=== PATIENT | female | born 1935 | race Caucasian/White ===

== ENCOUNTER → 2018-12-21 | Outpatient (CLI) | payer MEDICARE ==
--- NOTE | 2018-12-21 10:59 | Diagnostic Imaging Report ---
INDICATION: One-month history of right forearm pain. There is no fracture, dislocation or acute articular incongruity. No bony destructive process and no loose body. Degenerative changes to the wrist and elbow but no dislocation. IMPRESSION: No acute appearing abnormality. Dictated by: Dictated on workstation # [id number]
== END ==
LOC: RAD FS 10:45
PROVIDERS: ATTEND Nurse Practitioner Family
DX: M79.631 Pain in right forearm (principal)
CPT/HCPCS: 73090

== ENCOUNTER → 2019-05-11 | Outpatient (CLI) | payer MEDICARE ==
--- NOTE | 2019-05-11 16:24 | Diagnostic Imaging Report ---
INDICATION: Chronic mid back pain, no known injury. TECHNIQUE: AP and lateral imaging of the thoracic spine. CORRELATION STUDY: None. FINDINGS: There is no suggestion for acute pulmonary abnormality about the thoracic spine. There is slight accentuation of thoracic kyphosis. Diffuse disc space narrowing. Endplate lipping of the endplates, particularly in the lower thoracic vertebral body segments. Minimal leftward curvature at the thoracolumbar junction. Cholecystectomy clips in the right upper quadrant. Cardiac enlargement is suggested. IMPRESSION: Thoracic spondylosis without evidence for acute bony abdomen. Dictated by: Dictated on workstation # [id number]
== END ==
LOC: RAD FS 15:48
PROVIDERS: ATTEND Nurse Practitioner Family
DX: M47.814 Spondylosis without myelopathy or radiculopathy, thoracic region (principal); Z90.49 Acquired absence of other specified parts of digestive tract
CPT/HCPCS: 72070

== ENCOUNTER 2019-06-30 13:29 | Emergency (ER) | payer MEDICARE ==
[~2019-06-30] VITALS: Ht 160 cm; Wt 73.5 kg
--- NOTE | 2019-06-30 13:49 | ED General ---
General Stated Complaint: DIZZINESS; NAUSEA; KIET FEET/FACIAL TINGLING Source of Information: Patient Exam Limitations: No Limitations History of Present Illness Date Seen by Provider: Jun 30, 2019 Time Seen by Provider: 13:45 Initial Comments 83-year-old female presents with dizziness. She reports that it's been gone for about 5 days. It gets worse when she moves her head. She reports that she's had similar episodes in the past but this was worse. She's had a little bit of nausea vomiting with it. She has had some occasional diarrhea. She reports little bit of chest pressure when she got here but believes it might be She's anxious. She has no diaphoresis. Patient reports that in the past when she's had these episodes some time she's been a little bit dehydrated. She denies any fevers, chills. Patient also reported some bilateral feet and facial tingling to the nurse but not to me. Allergies and Home Medications Allergies Coded Allergies: morphine (Verified Allergy, Mild, 06/30/19) Patient Home Medication List Home Medication List Reviewed: Yes Review of Systems Review of Systems Constitutional: No chills; dizziness; No fever EENTM: No hearing loss Respiratory: no symptoms reported Cardiovascular: see HPI Gastrointestinal: No abdominal pain; diarrhea, nausea Genitourinary: no symptoms reported Skin: no symptoms reported Psychiatric/Neurological: See HPI Past Dwawihp-Tpfwxh-Qfyrwp Hx Past Med/Social Hx: Reviewed Nursing Past Med/Soc Hx Physical Exam Vital Signs Vital Signs - First Documented 06/30/19 14:08 Temp 36.8 Pulse 79 Resp 18 B/P (MAP) 225/87 (133) Pulse Ox 96 O2 Delivery Room Air Capillary Refill : Height, Weight, BMI Height: '" Weight: lbs. oz. 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 Norm as Tested Skin: Normal Color, Warm/Dry Lymphatic: No Adenopathy Progress/Results/Core Measures Suspected Sepsis SIRS Temperature: Pulse: Respiratory Rate: Laboratory Tests 06/30/19 13:55: White Blood Count 8.4 Blood Pressure / Mean: Laboratory Tests 06/30/19 13:55: Creatinine 1.27, Platelet Count 298, Total Bilirubin 0.5 Results/Orders Lab Results Laboratory Tests Test 06/30/19 13:45 06/30/19 13:55 06/30/19 14:20 Range/Units Urine Color YELLOW Urine Clarity CLEAR Urine pH 6.0 5-9 Urine Specific [place] 1.020 1.016-1.022 Urine Protein NEGATIVE NEGATIVE Urine Glucose (UA) NEGATIVE NEGATIVE Urine Ketones NEGATIVE NEGATIVE Urine Nitrite NEGATIVE NEGATIVE Urine Bilirubin NEGATIVE NEGATIVE Urine Urobilinogen 0.2 NORMAL MG/DL Urine Leukocyte Esterase TRACE H NEGATIVE Urine RBC (Auto) NEGATIVE NEGATIVE Urine RBC NONE /HPF Urine WBC 0-2 /HPF Urine Squamous Epithelial Cells 0-2 /HPF Urine Crystals NONE /LPF Urine Bacteria NEGATIVE /HPF Urine Casts NONE /LPF Urine Mucus NONE /LPF Urine Culture Indicated NO White Blood Count 8.4 4.3-11.0 10^3/uL Red Blood Count 4.75 4.35-5.85 10^6/uL Hemoglobin 13.3 11.5-16.0 G/DL Hematocrit 40 35-52 % Mean Corpuscular Volume 85 80-99 FL Mean Corpuscular Hemoglobin 28 25-34 PG Mean Corpuscular Hemoglobin Concent 33 32-36 G/DL Red Cell Distribution Width 12.3 10.0-14.5 % Platelet Count 298 130-400 10^3/uL Mean Platelet Volume 9.4 7.4-10.4 FL Neutrophils (%) (Auto) 77 H 42-75 % Lymphocytes (%) (Auto) 16 12-44 % Monocytes (%) (Auto) 5 0-12 % Eosinophils (%) (Auto) 1 0-10 % Basophils (%) (Auto) 0 0-10 % Neutrophils # (Auto) 6.5 1.8-7.8 X 10^3 Lymphocytes # (Auto) 1.3 1.0-4.0 X 10^3 Monocytes # (Auto) 0.5 0.0-1.0 X 10^3 Eosinophils # (Auto) 0.1 0.0-0.3 10^3/uL Basophils # (Auto) 0.0 0.0-0.1 10^3/uL Sodium Level 138 135-145 MMOL/L Potassium Level 4.0 3.6-5.0 MMOL/L Chloride Level 99 98-107 MMOL/L Carbon Dioxide Level 27 21-32 MMOL/L Anion Gap 12 5-14 MMOL/L Blood Urea Nitrogen 21 H 7-18 MG/DL Creatinine 1.27 0.60-1.30 MG/DL Estimat Glomerular Filtration Rate 40 BUN/Creatinine Ratio 17 Glucose Level 101 70-105 MG/DL Calcium Level 10.1 8.5-10.1 MG/DL Corrected Calcium 8.5-10.1 MG/DL Total Bilirubin 0.5 0.1-1.0 MG/DL Aspartate Amino Transf (AST/SGOT) 15 5-34 U/L Alanine Aminotransferase (ALT/SGPT) 9 0-55 U/L Alkaline Phosphatase 62 40-136 U/L Total Protein 7.4 6.4-8.2 GM/DL Albumin 4.6 H 3.2-4.5 GM/DL Glucometer 100 70-110 MG/DL My Orders Orders - ORTIZ,MITALI L DO Accucheck Stat ONCE (06/30/19 13:49) Ed Iv/Invasive Line Start (06/30/19 13:49) Ekg Tracing (06/30/19 13:49) Cbc With Automated Diff (06/30/19 13:49) Comprehensive Metabolic Panel (06/30/19 13:49) Ua Culture If Indicated (06/30/19 13:49) Meclizine Tablet (Antivert Tablet) (06/30/19 14:00) Ed Iv/Invasive Line Start (06/30/19 13:51) Ns Iv 500 Ml (Sodium Chloride 0.9%) (06/30/19 13:51) Ct Head Wo-R/O Stroke (06/30/19 13:56) Enalaprilat Inj (Vasotec Inj) (06/30/19 14:30) Enalaprilat Injection (Vasotec Injection (06/30/19 14:44) Ondansetron Injection (Zofran Injectio (06/30/19 15:15) Lisinopril Tablet (Zestril Tablet) (06/30/19 15:30) Medications Given in ED Current Medications Medications Dose Ordered Sig/Negrito Route Start Time Stop Time Status Last Admin Dose Admin Enalaprilat 2.5 mg ONCE ONCE IV 06/30/19 14:30 06/30/19 14:34 DC 06/30/19 14:50 2.5 MG Meclizine HCl 25 mg ONCE ONCE PO 06/30/19 14:00 06/30/19 14:01 DC 06/30/19 14:20 25 MG Ondansetron HCl 4 mg ONCE ONCE IVP 06/30/19 15:15 06/30/19 15:16 DC 06/30/19 15:11 4 MG Sodium Chloride 500 ml @ 0 mls/hr Q0M ONCE IV 06/30/19 13:51 06/30/19 13:53 DC 06/30/19 14:20 0 MLS/HR Vital Signs/I&O 06/30/19 14:08 Temp 36.8 Pulse 79 Resp 18 B/P (MAP) 225/87 (133) Pulse Ox 96 O2 Delivery Room Air Capillary Refill : Progress Note : Time: 15:36 Progress Note Patient's symptoms resolved following treatment of her blood pressure. I will start her on lisinopril 10 mg daily in addition to her labetalol. We will give her her first dose here in the ER. Patient uses [facility] and their pharmacy so we are arranging for [facility] to get her a prescription for her lisinopril. Patient is stable and has significant improvement in her symptoms. She will be discharged home in stable condition and should take her blood pressure medication as prescribed and follow-up with her primary care provider next week for recheck of symptoms patient should return to the ER if symptoms worsen. ECG Initial ECG Impression Date: Jun 30, 2019 Initial ECG Impression Time: 13:54 Initial ECG Rhythm: Normal Sinus Initial ECG Intervals: Normal Comment LVH Departure Impression Primary Impression: Hypertensive urgency Additional Impressions: Hypertension, uncontrolled Vertigo Disposition: HOME, SELF-CARE Condition: Stable Departure-Patient Inst. Referrals: NATY CARMEN APRN (PCP) Primary Care Physician MATT BAIRES MD (Family) Primary Care Physician Patient Instructions: Vertigo (a Type of Dizziness) (DC), High Blood Pressure in Adults, Medicines for High Blood Pressure Add. Discharge Instructions: Follow-up with Naty Carmen next week for recheck of symptoms and continuation of care Take medication as prescribed MITALI ORTIZ DO Jun 30, 2019 13:49
[2019-06-30] MEDS ORDERED: NS IV 500 ML 500 ML IV ONE (13:51)
[2019-06-30] MEDS ORDERED: MECLIZINE 25 MG (ANTIVERT) TAB PO ONE (14:00)
[2019-06-30 14:03] LABS: HEMATOCRIT 40 % (35-52); HEMOGLOBIN 13.3 G/DL (11.5-16.0); LYMPHOCYTES % (AUTO) 16 % (12-44); MEAN CORPUSCULAR HEMOGLOBIN 28 PG (25-34); MEAN CORPUSCULAR HGB CONC 33 G/DL (32-36); MEAN CORPUSCULAR VOLUME 85 FL (80-99); MEAN PLATELET VOLUME 9.4 FL (7.4-10.4); MONOCYTES % (AUTO) 5 % (0-12); NEUTROPHILS % (AUTO) 77 % (42-75); PLATELET COUNT 298 10^3/uL (130-400); RED CELL DISTRIBUTION WIDTH 12.3 % (10.0-14.5); WHITE BLOOD COUNT 8.4 10^3/uL (4.3-11.0)
[2019-06-30 14:04] LABS: BASOPHILS % (AUTO) 0 % (0-10); EOSINOPHILS # (AUTO) 0.1 10^3/uL (0.0-0.3); EOSINOPHILS % (AUTO) 1 % (0-10); LYMPHOCYTES # (AUTO) 1.3 X 10^3 (1.0-4.0); MONOCYTES # (AUTO) 0.5 X 10^3 (0.0-1.0); NEUTROPHILS # (AUTO) 6.5 X 10^3 (1.8-7.8)
[2019-06-30 14:19] LABS: BACTERIA,URINE NEGATIVE /HPF; BILIRUBIN,URINE NEGATIVE (NEGATIVE); CLARITY,URINE CLEAR; COLOR,URINE YELLOW; GLUCOSE, URINE (UA) NEGATIVE (NEGATIVE); KETONES,URINE NEGATIVE (NEGATIVE); LEUKOCYTE ESTERASE ,URINE TRACE (NEGATIVE); NITRITE,URINE NEGATIVE (NEGATIVE); PROTEIN,URINE NEGATIVE (NEGATIVE); SQUAMOUS EPITHELIAL CELL,UR 0-2 /HPF; UROBILINOGEN,URINE 0.2 MG/DL (NORMAL); WBC,URINE 0-2 /HPF
--- NOTE | 2019-06-30 14:19 | Diagnostic Imaging Report ---
PROCEDURE: CT head wo r/o stroke. TECHNIQUE: Multiple contiguous axial images were obtained through the brain without the use of intravenous contrast. Auto Exposure Controls were utilized during the CT exam to meet ALARA standards for radiation dose reduction. INDICATION: Dizziness, facial tingling, jaw pain. COMPARISON: None available. FINDINGS: No hyperdense hemorrhage or space-occupying mass. No hydrocephalus or midline shift. Mild global atrophy. Periventricular white matter hypoattenuation is most compatible with chronic microvascular ischemic disease. No skull fracture. Paranasal sinuses and mastoid air cells are clear. IMPRESSION: 1. No acute intracranial process by CT. 2. 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 Dictated by: Dictated on workstation # [id number]
[2019-06-30 14:23] LABS: ALANINE AMINOTRANSFERASE 9 U/L (0-55); ALBUMIN 4.6 GM/DL (3.2-4.5); ALKALINE PHOSPHATASE 62 U/L (40-136); BILIRUBIN,TOTAL 0.5 MG/DL (0.1-1.0); BUN/CREATININE RATIO 17; CALCIUM 10.1 MG/DL (8.5-10.1); CARBON DIOXIDE 27 MMOL/L (21-32); CHLORIDE 99 MMOL/L (98-107); CREATININE SERUM 1.27 MG/DL (0.60-1.30); GFR ESTIMATED 40; GLUCOSE 101 MG/DL (70-105); SODIUM 138 MMOL/L (135-145); TOTAL PROTEIN 7.4 GM/DL (6.4-8.2)
[2019-06-30] MEDS ORDERED: ENALAPRILAT 1.25 MG/1 ML (VASOTEC) 1 ML VIAL IV ONE (14:30)
[2019-06-30] MEDS ORDERED: ENALAPRILAT 2.5 MG/2 ML (VASOTEC) VIAL IV ONE (14:44)
[2019-06-30] MEDS ORDERED: ONDANSETRON 4 MG/2 ML (SDV) Z0FRAN IVP ONE (15:15)
[2019-06-30] MEDS ORDERED: lisINopril 10 MG (PRINIVIL) TABLET PO ONE (15:30)
[2019-06-30 15:59] VITALS: BP 179/64
== END 2019-06-30 16:00 | disposition home or self-care (01) ==
LOC: EDUNIT# 13:29 → ER FS 13:31
DX: I16.0 Hypertensive urgency (principal); I10 Essential (primary) hypertension; R42 Dizziness and giddiness; Z88.5 Allergy status to narcotic agent
CPT/HCPCS: 36415; 70450; 80053; 81000; 82962; 85025; 93005

== ENCOUNTER → 2019-08-10 | Outpatient (CLI) | payer MEDICARE ==
[~2019-08-10] MED LIST: CATHETER FLUSH 10 ML SYR IV PRN; HOLD METFORMIN - RECEIVED CONTRAST 20 ML VIAL IV SCH; IOHEXOL 350 MG/ML 100 ML (OMNIPAQUE 350) VIAL IV ONE; NS 100 ML (IVPB) BAG IV ONE
--- NOTE | 2019-08-10 12:11 | Diagnostic Imaging Report ---
PROCEDURE: CT abdomen and pelvis with and without contrast. TECHNIQUE: Precontrast acquisitions were acquired through the abdomen and pelvis. Multiple contiguous axial images were obtained through the abdomen and pelvis after the administration of intravenous contrast. Auto Exposure Controls were utilized during the CT exam to meet ALARA standards for radiation dose reduction. INDICATION: Pelvic mass. COMPARISON: No prior studies are available for comparison. FINDINGS: Lung bases are clear. No discrete liver mass is identified. The gallbladder is surgically absent. No biliary ductal dilatation is seen. The pancreas and spleen are unremarkable. No adrenal mass is detected. There is a large calcification just posterior to the uncinate of the pancreas and anterior to the vena cava, indeterminate. There is an approximately 19 mm cyst in the right kidney. Left kidney is unremarkable. Aorta is calcified but nonaneurysmal. No central or retroperitoneal or mesenteric lymphadenopathy is seen. There are some mildly prominent fluid-filled small bowel loops in the lower abdomen and upper pelvis, nonspecific. No definite transition is seen. There is significant diverticulosis of the sigmoid colon but no evidence of acute diverticulitis. There is no bowel obstruction. No free fluid or fluid collection in the abdomen or pelvis is seen. The bladder is unremarkable. There is a small left adnexal cyst measuring 2 cm. Uterus appears to be absent or atrophic. No definite pelvic lymphadenopathy is seen. IMPRESSION: 1. Right renal cyst. 2. Uncomplicated diverticulosis. No pelvic mass is seen apart from a small left adnexal cyst. 3. Mild nonspecific fluid filled distention of small bowel loops, perhaps on the basis of enteritis. The study is otherwise unremarkable. Dictated by: Dictated on workstation # [id number]
== END ==
LOC: RAD FS 10:42
PROVIDERS: ATTEND Nurse Practitioner Family
DX: N28.1 Cyst of kidney, acquired (principal); N83.8 Other noninflammatory disorders of ovary, fallopian tube and broad ligament; K57.30 Diverticulosis of large intestine without perforation or abscess without bleeding; I10 Essential (primary) hypertension; R19.00 Intra-abdominal and pelvic swelling, mass and lump, unspecified site
CPT/HCPCS: 74178

== ENCOUNTER → 2019-11-29 | Outpatient (CLI) | payer MEDICARE ==
--- NOTE | 2019-11-29 12:35 | Diagnostic Imaging Report ---
INDICATION: Right shoulder pain. EXAMINATION: AP and transscapular views of the right shoulder are obtained. COMPARISON: There is no prior study for comparison. FINDINGS: There is a prominent curvilinear calcification overlying the greater tuberosity extending into the rotator cuff interval. This may be an old avulsion or chronic soft tissue calcification, this does not appear to be acute. There is degenerative change of the AC joint and glenohumeral joint. IMPRESSION: Large curvilinear calcification adjacent to the proximal humerus as described above. This may be due to old avulsion or soft tissue calcification, as this does not appear to be acute. There are underlying degenerative findings of the AC joint and glenohumeral joint. Dictated by: Dictated on workstation # [id number]
== END ==
LOC: RAD FS 12:17
PROVIDERS: ATTEND Nurse Practitioner Family
DX: M25.811 Other specified joint disorders, right shoulder (principal); M25.511 Pain in right shoulder
CPT/HCPCS: 73030

== ENCOUNTER → 2020-02-13 | Outpatient (CLI) | payer MEDICARE ==
[~2020-02-13] VITALS: Ht 157 cm; Wt 73.0 kg
[~2020-02-13] MED LIST changes: +HEParin (CATH LAB) 0 ML IV ONE; +HEParin 1000 UNIT/ML (10ML VIAL) FOR BOLUS ONE; -HOLD METFORMIN - RECEIVED CONTRAST 20 ML VIAL IV SCH; -IOHEXOL 350 MG/ML 100 ML (OMNIPAQUE 350) VIAL IV ONE; +LIDOCAINE 1% INJ 20 ML 20 ML VIAL ONE; -NS 100 ML (IVPB) BAG IV ONE; +REGADENOSON 0.4 MG/5 ML SYR (LEXISCAN) IV ONE
[2020-02-13 11:52] VITALS: BP 219/107
[2020-02-13 11:56] VITALS: BP 187/103
[2020-02-13 11:58] VITALS: BP 187/105
--- NOTE | 2020-02-13 17:37 | STRESS TEST ---
DATE OF SERVICE: 02/13/2020 RESTING AND POST REGADENOSON TECHNETIUM-99M TETROFOSMIN SPECT CT IMAGING Baseline images were carried out after injection of 10.5 mCi of technetium-99m Tetrofosmin. This was followed by 0.4 mg regadenoson and 32.3 mCi of technetium-99m Tetrofosmin for stress imaging. The electrocardiogram showed sinus rhythm at baseline. There was nonspecific ST and T-wave abnormality at baseline that did not change significantly with regadenoson infusion. The patient reported some nausea after the regadenoson infusion, which resolved in a few minutes. Review of images at rest and following stress indicates a small transient anterolateral perfusion defect. Gated images show normal global left ventricular systolic function with normal regional wall motion. Left ventricular ejection fraction is calculated to be 75%. Left ventricular end diastolic volume is 49 mL. TID is absent (1.07). CONCLUSIONS: 1. This study indicates a small amount of anterolateral ischemia. 2. Normal regional wall motion. 3. Normal global left ventricular systolic function with a calculated ejection fraction of 75%. Job ID: [id number] DocumentID: [id number] Dictated Date: 02/13/2020 17:22:50 Track Surfacing Machine Operator Date: 02/13/2020 17:37:08 Dictated By: JEB MCKEON MD, MA, FACP, FACC,
== END ==
LOC: CARD 10:41
PROVIDERS: ATTEND Nurse Practitioner Family
DX: I08.0 Rheumatic disorders of both mitral and aortic valves (principal); E78.5 Hyperlipidemia, unspecified; I11.9 Hypertensive heart disease without heart failure
CPT/HCPCS: 78452; 93017; 93306

== ENCOUNTER 2020-02-27 07:19 | Day surgery (SDC) | payer MEDICARE ==
[~2020-02-27] VITALS: Ht 157.5 cm; Wt 73.6 kg
[2020-02-27] MEDS ORDERED: ATROPINE INJECTION 1 MG/10 ML SYR (ABBOTT) INJ ONE (07:20)
--- OUTSIDE RECORDS SUMMARY | 2020-02-27 07:23 | XMS REPORT | Continuity of Care Document ---
Author Organization Unknown Address Unknown Phone Unavailable Allergies Active Description Code Type Severity Reaction Onset Reported/Identified Relationship to Patient Clinical Status Yes morphine [id number] Drug Allergy Mild N/A 06/30/2019 Medications There is no data. Problems Date Dx Coded Attending Type Code Diagnosis Diagnosed By 12/21/2018 Ot M79.631 PA IN IN RIGHT FOREARM 12/23/2018 Ot M79.631 PA IN IN RIGHT FOREARM 05/15/2019 NATY CARMEN GLOBAL CHIEF EXPERIENCE OFFICER Ot 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 W/O MYELOPATHY OR RADICULOPA 05/15/2019 NATY CARMEN GLOBAL CHIEF EXPERIENCE OFFICER Ot Z90.49 ACQUIRED ABSENCE OF OTHER SPECIFIED PART 06/30/2019 ORTIZ DO, MITALI L Ot I10 ESSENTIAL (PRIMARY) HYPERTENSION 06/30/2019 ORTIZ DO, MITALI L Ot I16.0 HYPERTENSIVE URGENCY 06/30/2019 ORTIZ DO, MITALI L Ot R42 DIZZINESS AND GIDDINESS 06/30/2019 ORTIZ DO, MITALI L Ot Z88.5 ALLERGY STATUS TO NARCOTIC AGENT STATUS 06/30/2019 Ot M79.631 PA IN IN RIGHT FOREARM 06/30/2019 NATY CARMEN APRN Ot 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 W/O MYELOPATHY OR RADICULOPA 06/30/2019 NATY CARMEN GLOBAL CHIEF EXPERIENCE OFFICER Ot Z90.49 ACQUIRED ABSENCE OF OTHER SPECIFIED PART 07/05/2019 ORTIZ DO, MITALI L Ot I10 ESSENTIAL (PRIMARY) HYPERTENSION 07/05/2019 ORTIZ DO, MITALI L Ot I16.0 HYPERTENSIVE URGENCY 07/05/2019 ORTIZ DO, MITALI L Ot R42 DIZZINESS AND GIDDINESS 07/05/2019 ORTIZ DO, MITALI L Ot Z88.5 ALLERGY STATUS TO NARCOTIC AGENT STATUS 08/23/2019 NATY CARMEN APRN Ot I1 0 ESSENTIAL (PRIMARY) HYPERTENSION 08/23/2019 NATY CARMEN GLOBAL CHIEF EXPERIENCE OFFICER Ot K57.30 DVRTCLOS OF LG INT W/O PERFORATION OR AB 08/23/2019 NATY CARMEN GLOBAL CHIEF EXPERIENCE OFFICER Ot N28.1 CYST OF KIDNEY, ACQUIRED 08/23/2019 NELLANATY GLOBAL CHIEF EXPERIENCE OFFICER Ot N83.8 OTH NONINFLAMMATORY DISORD OF OVARY, FAL 08/23/2019 NATY CARMEN GLOBAL CHIEF EXPERIENCE OFFICER Ot R19.00 INTRA-ABD AND PELVIC SWELLING, MASS AND 11/29/2019 Ot M79.631 PA IN IN RIGHT FOREARM 11/29/2019 NELLA, NATY Gaspar GLOBAL CHIEF EXPERIENCE OFFICER Ot 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 W/O MYELOPATHY OR RADICULOPA 11/29/2019 NELLA, NATY Gaspar GLOBAL CHIEF EXPERIENCE OFFICER Ot Z90.49 ACQUIRED ABSENCE OF OTHER SPECIFIED PART 11/29/2019 NELLA, NATY Gaspar GLOBAL CHIEF EXPERIENCE OFFICER Ot I1 0 ESSENTIAL (PRIMARY) HYPERTENSION 11/29/2019 NELLA, NATY Gaspar GLOBAL CHIEF EXPERIENCE OFFICER Ot K57.30 DVRTCLOS OF LG INT W/O PERFORATION OR AB 11/29/2019 NELLA NATY Gaspar GLOBAL CHIEF EXPERIENCE OFFICER Ot N28.1 CYST OF KIDNEY, ACQUIRED 11/29/2019 NELLA, NATY Gaspar GLOBAL CHIEF EXPERIENCE OFFICER Ot N83.8 OTH NONINFLAMMATORY DISORD OF OVARY, FAL 11/29/2019 NATY CARMEN GLOBAL CHIEF EXPERIENCE OFFICER Ot R19.00 INTRA-ABD AND PELVIC SWELLING, MASS AND 12/01/2019 NELLA NATY Gaspar GLOBAL CHIEF EXPERIENCE OFFICER Ot M25.511 PAIN IN RIGHT SHOULDER 12/01/2019 NELLA NATY Gaspar GLOBAL CHIEF EXPERIENCE OFFICER Ot M25.811 OTHER SPECIFIED JOINT DISORDERS, RIGHT S 02/15/2020 BAIDG COTE L ISOTOPE TECHNOLOGIST Ot E78.5 HYPERLIPIDEMIA, UNSPECIFIED 02/15/2020 BAIMADG L ISOTOPE TECHNOLOGIST Ot I08.0 RHEUMATIC DISORDERS OF BOTH MITRAL AND A 02/15/2020 BAIBC COTEHER L ISOTOPE TECHNOLOGIST Ot 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 Results Test Result Range CBC w/MANUAL DIFF - 12/21/18 11:07 WHITE BLOOD CELL COUNT 7.6 Thousand/uL 3 .8-10.8 RED BLOOD CELL COUNT 4.55 Million/uL 3.8 0-5.10 HEMOGLOBIN 12.9 g/dL 11.7-15.5 HEMATOCRIT 37.7 % 35.0-45.0 MCV 82.9 fL 80.0-100.0 MCH 28.4 pg 27.0-33.0 MCHC 34.2 g/dL 32.0-36.0 RDW 13.1 % 11.0-15.0 PLATELET COUNT 282 Thousand/uL 140-400 MPV 9.8 fL 7.5-12.5 ABSOLUTE NEUTROPHILS 4514 cells/uL 1500- 7800 ABSOLUTE MONOCYTES 395 cells/uL 200-950 ABSOLUTE EOSINOPHILS 236 cells/uL 15-500 ABSOLUTE BASOPHILS 0 cells/uL 0-200 NEUTROPHILS 59.4 % NRG LYMPHOCYTES 32.3 % NRG MONOCYTES 5.2 % NRG EOSINOPHILS 3.1 % NRG BASOPHILS 0 % NRG ABSOLUTE LYMPHOCYTES 2455 cells/uL 850-3 900 PLATELET ESTIMATION ADEQUATE ADEQUATE Complete urinalysis with reflex to cultu re - 06/30/19 13:45 Urine color determination YELLOW NRG Urine clarity determination CLEAR NR G Urine pH measurement by test strip 6.0 5-9 Specific gravity of urine by test strip 1.020 1.016-1.022 Urine protein assay by test strip, semi-quantitative NEGATIVE NEGATIVE Urine glucose detection by automated test strip NE GATIVE NEGATIVE Erythrocytes detection in urine sediment by light micr oscopy NEGATIVE NEGATIVE Urine ketones detection by automated test strip NE GATIVE NEGATIVE Urine nitrite detection by test strip NEGATIVE NEGATIVE Urine total bilirubin detection by test strip NEGA TIVE NEGATIVE Urine urobilinogen measurement by automated test strip (mass/volume) 0.2 mg/dL NORMAL Urine leukocyte esterase detection by dipstick TRA CE NEGATIVE Automated urine sediment erythrocyte cou nt by microscopy (number/high power field) NONE NRG Automated urine sediment leukocyte count by microscopy (number/high power field) [HPF] NRG Bacteria detection in urine sediment by light microsco py NEGATIVE NRG Squamous epithelial cells detection in u rine sediment by light microscopy 0-2 NRG Crystals detection in urine sediment by light microsco py NONE NRG Casts detection in urine sediment by light microscopy NONE NRG Mucus detection in urine sediment by light microscopy NONE NRG Complete urinalysis with reflex to culture NO NRG Complete blood count (CBC) with automate d white blood cell (WBC) differential - 06/30/19 13:55 Blood leukocytes automated count (number/volume) 8.4 10*3/uL 4.3-11.0 Blood erythrocytes automated count (number/volume) 4.75 10*6/uL 4.35-5.85 Venous blood hemoglobin measurement (mass/volume) 13.3 g/dL 11.5-16.0 Blood hematocrit (volume fraction) 40 % 35-52 Automated erythrocyte mean corpuscular volume 85 [ foz_us] 80-99 Automated erythrocyte mean corpuscular h emoglobin (mass per erythrocyte) 28 pg 25-34 Automated erythrocyte mean corpuscular h emoglobin concentration measurement (mass/volume) 33 g/dL 32-36 Automated erythrocyte distribution width ratio 12. 3 % 10.0- 14.5 Automated blood platelet count (count/volume) 298 10*3/uL 130-400 Automated blood platelet mean volume measurement 9.4 [foz_us] 7.4-10.4 Automated blood neutrophils/100 leukocytes 77 % 42-75 Automated blood lymphocytes/100 leukocytes 16 % 12-44 Blood monocytes/100 leukocytes 5 % 0-12 Automated blood eosinophils/100 leukocytes 1 % 0-10 Automated blood basophils/100 leukocytes 0 % 0-10 Blood neutrophils automated count (number/volume) 6.5 10*3 1.8-7.8 Blood lymphocytes automated count (number/volume) 1.3 10*3 1.0-4.0 Blood monocytes automated count (number/volume) 0. 5 10*3 0.0-1.0 Automated eosinophil count 0.1 10*3/uL 0 .0-0.3 Automated blood basophil count (count/volume) 0.0 10*3/uL 0.0-0.1 Comprehensive metabolic panel - 06/30/19 13:55 Serum or plasma sodium measurement (moles/volume) 138 mmol/L 135-145 Serum or plasma potassium measurement (moles/volume) 4.0 mmol/L 3.6-5.0 Serum or plasma chloride measurement (moles/volume) 99 mmol/L 98-107 Carbon dioxide 27 mmol/L 21-32 Serum or plasma anion gap determination (moles/volume) 12 mmol/L 5-14 Serum or plasma urea nitrogen measurement (mass/volume ) 21 mg/dL 7-18 Serum or plasma creatinine measurement (mass/volume) 1.27 mg/dL 0.60-1.30 Serum or plasma urea nitrogen/creatinine mass ratio 17 NRG Serum or plasma creatinine measurement w ith calculation of estimated glomerular filtration rate 40 NRG Serum or plasma glucose measurement (mass/volume) 101 mg/dL 70-105 Serum or plasma calcium measurement (mass/volume) 10.1 mg/dL 8.5-10.1 Serum or plasma total bilirubin measurement (mass/volu me) 0.5 mg/dL 0.1-1.0 Serum or plasma alkaline phosphatase dusty surement (enzymatic activity/volume) 62 U/L 40-136 Serum or plasma aspartate aminotransfera se measurement (enzymatic activity/volume) 15 U/L 5-34 Serum or plasma alanine aminotransferase measurement (enzymatic activity/volume) 9 U/L 0-55 Serum or plasma protein measurement (mass/volume) 7.4 g/dL 6.4-8.2 Serum or plasma albumin measurement (mass/volume) 4.6 g/dL 3.2-4.5 Capillary blood glucose measurement by g lucometer (mass/volume) - 06/30/19 14:20 Capillary blood glucose measurement by glucometer (mas s/volume) 100 mg/dL 70-110 SUREPATH PAP AND HPV mRNA E6/E7 - 11:54 CLINICAL INFORMATION: NRG LMP: NRG PREV. PAP: NRG PREV. BX: VCUFF NRG SOURCE: NRG STATEMENT OF ADEQUACY: NRG INTERPRETATION/RESULT: NRG WELDING ESTIMATOR: NRG HPV mRNA E6/E7, SUREPATH VIAL Not Detected NOT DETECTED COMMENT NRG CMP - 08/09/19 09:42 GLUCOSE 118 mg/dL 65-99 UREA NITROGEN (BUN) 22 mg/dL 7-25 CREATININE 1.26 mg/dL 0.60-0.88 eGFR NON-AFR. BELARUSIAN 40 mL/min/1.73m2 > OR = 60 eGFR 46 mL/min/1.73m2 > OR = 60 BUN/CREATININE RATIO 17 (calc) 6-22 SODIUM 138 mmol/L 135-146 POTASSIUM 4.1 mmol/L 3.5-5.3 CHLORIDE 103 mmol/L 98-110 CARBON DIOXIDE 28 mmol/L 20-32 CALCIUM 9.4 mg/dL 8.6-10.4 PROTEIN, TOTAL 6.2 g/dL 6.1-8.1 ALBUMIN 4.2 g/dL 3.6-5.1 GLOBULIN 2.0 g/dL (calc) 1.9-3.7 ALBUMIN/GLOBULIN RATIO 2.1 (calc) 1.0-2. 5 BILIRUBIN, TOTAL 0.7 mg/dL 0.2-1.2 ALKALINE PHOSPHATASE 53 U/L 33-130 AST 15 U/L 10-35 ALT 10 U/L 6-29 TSH - 11/29/19 13:16 TSH 1.40 mIU/L 0.40-4.50 Encounters ACCT No. Visit Date/Time Discharge Status Pt. Type Provider Facility Loc./Unit Complaint [id number] 11/29/2019 11:20:00 11/29/2019 23:59: 59 [facility] [id number] 11/29/2019 11:20:00 Document Registration [id number] 08/09/2019 09:30:00 Document Registration [id number] 08/08/2019 11:20:00 Document Registration [id number] 12/21/2018 10:00:00 Document Registration [id number] 02/13/2020 10:41:00 23:59:59 CLS Outpatient DG STERLING ISOTOPE TECHNOLOGIST [facility] [address] CARD CHEST DISCOMFORT,HT,HYPERLIPIDEMIA [id number] 12/05/2019 15:00:00 23:59:59 CLS Preadmit MIKE ZAMUDIO FACC, JEB FACP CCDS [facility] [address] CATH ABGINA,SOB,EDWARD CHENGE,CKD,HTN [id number] 11/29/2019 12:17:00 23:59:59 CLS Outpatient NATY CARMEN S GLOBAL CHIEF EXPERIENCE OFFICER [facility] [address] RAD FS M25.511 [id number] 08/10/2019 10:42:00 23:59:59 CLS Outpatient NELLA NATY S GLOBAL CHIEF EXPERIENCE OFFICER [facility] [address] RAD FS PELVIC MASS [id number] 06/30/2019 13:31:00 16:00:00 DIS Emergency ORTIZ DO MITALI L [facility] [address] ER FS DIZZINESS; NAUSEA; KIET FEET/FACIAL [place] [id number] 05/11/2019 15:48:00 23:59:59 CLS Outpatient NELLA, NATY S GLOBAL CHIEF EXPERIENCE OFFICER [facility] [address] RAD FS M54.6 [id number] 02/27/2020 10:00:00 Rakesh MCKEON MD FACC, JEB GUERRA CCDS [facility] CATH ANGINA [id number] 12/21/2018 10:45:00 Document Registration
[2020-02-27] MEDS ORDERED: LIDOCAINE 1% INJ 20 ML 20 ML VIAL ONE (07:38)
[2020-02-27] MEDS ORDERED: HEParin (CATH LAB) 2,000 ML IV ONE (07:38)
[2020-02-27] MEDS ORDERED: NS IV 1000 ML 1,000 ML IV SCH ×2 (07:45→16:00)
[2020-02-27 08:18] VITALS: BP 180/86
[2020-02-27 08:22] LABS: HEMOGLOBIN 12.2 G/DL (11.5-16.0); MEAN PLATELET VOLUME 9.7 FL (7.4-10.4); RED CELL DISTRIBUTION WIDTH 12.9 % (10.0-14.5); WHITE BLOOD COUNT 5.9 10^3/uL (4.3-11.0)
[2020-02-27 08:33] LABS: INR 0.9 (0.8-1.4); PROTHROMBIN TIME PATIENT 12.6 SEC (12.2-14.7)
[2020-02-27] MEDS ORDERED: ASPI-586 PO (08:38)
[2020-02-27] MEDS ORDERED: LABE100T6 PO (08:38)
[2020-02-27] MEDS ORDERED: BETA1TAB15 PO (08:38)
[2020-02-27 08:39] LABS: ALBUMIN 4.4 GM/DL (3.2-4.5); BILIRUBIN,TOTAL 0.7 MG/DL (0.1-1.0); CALCIUM 9.7 MG/DL (8.5-10.1); CREATININE SERUM 1.31 MG/DL (0.60-1.30); POTASSIUM 3.9 MMOL/L (3.6-5.0); TOTAL PROTEIN 7.2 GM/DL (6.4-8.2)
[2020-02-27] MEDS ORDERED: fentaNYL INJECTION 100 MCG/2 ML AMP ONE ×2 (09:44→15:53)
[2020-02-27] MEDS ORDERED: MIDAZOLAM 5 MG/5 ML (VERSED) VIAL ONE (09:44)
[2020-02-27] MEDS ORDERED: ONDANSETRON 4 MG/2 ML (SDV) Z0FRAN ONE ×2 (10:07→15:53)
--- NOTE | 2020-02-27 10:13 | Cardiac Procedure Note-CS/ASA ---
Pre-Procedure Note Pre-Op Procedure Note H&P Reviewed The H&P was reviewed, patient examined and no changes noted. Date H&P Reviewed: Feb 27, 2020 Time H&P Reviewed: 10:13 Conscious Sedation Pre-Proced Time 10:13 ASA Score 3 For ASA 3 and 4: Consider anesthesia and medical clearance. Also, for patients with a history of failed moderate sedation consider anesthesia. Airway Lungs Heart ASA score ASA 1: a normal healthy patient ASA 2: a patient with a mild systemic disease (mid diabetes, controlled hypertension, obesity ASA 3: a patient with a severe systemic disease that limits activity (angina, COPD, prior Myocardial infarction) ASA 4: a patient with an incapacitating disease that is a constant threat to life (CHF, renal failure) ASA 5: a moribund patient not expected to survive 24 hrs. (ruptured aneurysm) ASA 6: a declared brain- patient whose organs are being harvested. For emergent operations, add the letter E after the classification Mallampati Classification Grade 2 Sedation Plan Analgesia, Amnesia, Plan communicated to team members, Discussed options with patient/fam, Discussed risks with patient/fam The patient is an appropriate candidate to undergo the planned procedure, sedation, and anesthesia. The patient immediately re-assessed prior to indication. JEB MCKEON MD FACP FAC CCDS Feb 27, 2020 10:13
[2020-02-27] MEDS ORDERED: NITRO DRIP 25000 MCG/D5W 250 ML IV ONE (10:31)
[2020-02-27] MEDS ORDERED: HEParin 1000 UNIT/ML (10ML VIAL) FOR BOLUS ONE (10:31)
[2020-02-27] MEDS ORDERED: EPTIFIBATIDE BOLUS 20 ML IV ONE (10:36)
[2020-02-27] MEDS ORDERED: ASPIRIN 81 MG CHEW (CHILDREN'S ASA) ONE (11:12)
[2020-02-27] MEDS ORDERED: CLOPIDOGREL 300 MG (PLAVIX) TABLET PO ONE (11:12)
[2020-02-27] MEDS ORDERED: meTOprolol 5 MG/5 ML (LOPRESSOR) VIAL ONE ×2 (11:14→11:31)
[2020-02-27] MEDS ORDERED: hydrALAZINE (APESOLINE) 20 MG/ML VIAL ONE (11:31)
[2020-02-27] MEDS ORDERED: amLODIPine 5 MG (NORVASC) TAB PO PRN (12:00)
[2020-02-27] MEDS ORDERED: ACETAMINOPHEN 325 MG TABLET PO PRN (12:00)
[2020-02-27] MEDS ORDERED: PATIENT MAY USE OWN MEDS, ALL PO SCH (12:00)
[2020-02-27] MEDS ORDERED: LABETALOL 200 MG (NORMODYNE) TAB PO NR (12:00)
--- NOTE | 2020-02-27 12:24 | CARDIAC CATHETERIZATION ---
DATE OF SERVICE: 02/27/2020 CARDIAC CATHETERIZATION AND CORONARY INTERVENTION REPORT The patient is an 84-year-old lady who has symptoms of chest discomfort and myocardial perfusion imaging was indicative of anterolateral ischemia. Cardiac catheterization was carried out after having obtained an informed consent. Vigorous perioperative hydration was carried out because of the patient's chronic kidney disease stage III. DESCRIPTION OF PROCEDURE: She was brought to the cardiac catheterization laboratory in a fasting state. Right groin was prepared and draped in the usual sterile fashion. Lidocaine 1% was used for local anesthesia. Modified Seldinger technique was used to advance a 5-Japanese sheath in right femoral artery. A 5-Japanese JL4 catheter for left coronary angiography, 5-Japanese JR4 catheter was used for right coronary angiography. Subsequently, percutaneous intervention was carried out to the left anterior descending and the left circumflex artery and that is described below. Following completion of the percutaneous intervention, we carried out left heart catheterization with a 5-Japanese pigtail catheter and a pullback was performed. We did not carry out left ventricular angiography. This was to save contrast because of the patient's renal insufficiency. PERCUTANEOUS INTERVENTION TO THE FIRST OBTUSE MARGINAL OF THE LEFT CIRCUMFLEX: The first obtuse margin of the left circumflex is a large vessel that seems to supply most of the lateral wall and also part of the anterolateral and apical wall. It exhibited 90% stenosis in its proximal portion. We exchanged the sheath over a wire for a 6-Japanese sheath and used a 6-Japanese EBU 3.5 guide catheter to engage the left coronary system and advanced a wire across the lesion in the proximal obtuse marginal and the tip was placed in the distal vessel. We stented the lesion with Alpine Xience 3.0 x 12 mm stent, which was deployed at 18 atmospheres and it resulted in a stent lumen size of approximately 3.2 mm. Subsequent angiography revealed 0% residual stenosis at the previous site of 90% stenosis. PERCUTANEOUS INTERVENTION TO THE LEFT ANTERIOR DESCENDING ARTERY: We used a second wire to cross into the left anterior descending. This was difficult because the guide was selectively engaging into the left circumflex. We were; however, able to advance the wire into the left anterior descending and placed it into the distal part of the vessel. We carried out balloon angioplasty at the site of 70 to 80% in the proximal left anterior descending. This was accomplished with Emerge 2.0 x 15 mm balloon that was inflated to 18 atmospheres. Subsequent angiography revealed less than 30% residual stenosis and flow throughout the vessel is normal. The angioplasty equipment and the guide catheter was removed. Angiography of the right femoral artery was carried out through the sheath and Mynx was used to achieve hemostasis. She tolerated the procedure well. HEMODYNAMICS: Left ventricular end-diastolic pressure following coronary angiography and coronary interventions was 14 mmHg. There is no significant pressure gradient on pullback across the aortic valve. Ascending aortic pressure was 217/97 with a mean 146 mmHg. CORONARY ANGIOGRAPHY: Coronary calcification is present in all vessels. Left main coronary artery does not exhibit significant stenosis. Left anterior descending artery had a 70% to 80% proximal stenosis to which successful balloon angioplasty was carried out with reduced stenosis to less than 30% residual. The first diagonal branch has severe proximal disease with stenosis up to 90%, but this is a small caliber vessel. There does not appear amenable to intervention. The left circumflex artery is a large system that appears to supply most of the lateral and anterolateral wall. The first obtuse marginal branch of the left circumflex artery is the largest vessel, which had a 90% stenosis in its proximal portion to which successful stenting was carried out with Alpine Xience 3.0 x 12 mm stent. The right coronary artery is dominant. It has diffuse moderate disease and it has 90% proximal stenosis. Intervention to this 90% stenosis is planned for a later date. The terminal posterolateral branches of the right coronary artery have a severe stenosis up to 90%, but the vessels are of a very small caliber and not amenable to intervention. CONCLUSIONS: 1. Multivessel coronary artery disease as detailed above. 2. 70 to 80% proximal stenosis, left anterior descending to which successful balloon angioplasty was carried out with reduction of stenosis to less than 30%. First diagonal is a very small caliber vessel and has severe proximal disease, but is not amenable to intervention. 3. Left circumflex artery mainly consists of large obtuse marginal, which had 90% proximal stenosis to which successful stenting was carried out with Alpine Xience 3.0 x 12 mm stent. 4. Right coronary artery is dominant and has 90% proximal stenosis. The mid right coronary artery has diffuse moderate disease. The terminal posterolateral branches of the right coronary have severe stenoses, but are of small caliber and not amenable to intervention. 5. Mildly elevated left ventricular end-diastolic pressure. DISCUSSION AND RECOMMENDATIONS: Dual antiplatelet therapy is being added to the regimen. Statins and beta-lotus therapy will be continued. She has chronic kidney disease stage III. We will allow at least a week to recover from contrast. Right coronary artery intervention will be planned for a later date. Job ID: [id number] DocumentID: [id number] Dictated Date: 02/27/2020 11:38:22 Supervisor [employer] Em[employer] Date: 02/27/2020 12:22:27 Dictated By: JEB MCKEON MD, MA, FACP, FACC, MTDD
[2020-02-27 15:00] VITALS: BP 117/74
--- NOTE | 2020-02-27 15:41 | NUR ---
This nurse received a call from [facility] at 1541, he reported to me that patients heart rate was in the 30's. this nurse went into patients room immediately, patient sweating and confused. Mariel RN and Analilia RN both in patients room soon after this nurse entered room. 1544 this nurse paged . 1545 this nurse called dental laboratory technician 1546 this nurse held down tele ICU button in room, quickly answered the call and cameraed into the room. patient having sonorous respirations. patient was sternal rubbed, she groaned in pain. 1548 1amp/1mg atropine given per physicians orders 1549 1L NS bolus started, wide open. 1553 this nurse called dental laboratory technician again and spoke with Alida Irwin updated and came to patients room. held pressure to right groin for 20minutes. Mariel held pressure to right groin for another 20 minutes. VSS. This nurse in patients room monitoring her closely. Will continue to closely monitor. Alida and Breann from dental laboratory technician both came up to patients room to check on patient and this nurse to see if we needed anything. Patient resting comfortably att.
[2020-02-27] MEDS ORDERED: ATROPINE INJECTION 1 MG/10 ML SYR (ABBOTT) ONE (15:42)
[2020-02-27 16:00] VITALS: BP 138/82
[2020-02-27] MEDS ORDERED: ATROPINE INJECTION 1 MG/10 ML SYR (ABBOTT) IV ONE (16:00)
[2020-02-27] MEDS ORDERED: ONDANSETRON 4 MG/2 ML (SDV) Z0FRAN IVP PRN (16:00)
[2020-02-27] MEDS ORDERED: NS IV 500 ML 500 ML IV SCH (16:00)
[2020-02-27] MEDS: NS IV 1000 ML 1,000 ML IV SCH ×2 (16:05→20:08)
[2020-02-27 16:15] LABS: BASOPHILS % (AUTO) 0 % (0-10); EOSINOPHILS # (AUTO) 0.1 10^3/uL (0.0-0.3); EOSINOPHILS % (AUTO) 3 % (0-10); HEMATOCRIT 33 % (35-52); HEMOGLOBIN 10.7 G/DL (11.5-16.0); LYMPHOCYTES # (AUTO) 1.4 X 10^3 (1.0-4.0); LYMPHOCYTES % (AUTO) 29 % (12-44); MEAN CORPUSCULAR HEMOGLOBIN 28 PG (25-34); MEAN CORPUSCULAR HGB CONC 33 G/DL (32-36); MEAN CORPUSCULAR VOLUME 85 FL (80-99); MEAN PLATELET VOLUME 9.9 FL (7.4-10.4); MONOCYTES # (AUTO) 0.3 X 10^3 (0.0-1.0); MONOCYTES % (AUTO) 7 % (0-12); NEUTROPHILS # (AUTO) 2.9 X 10^3 (1.8-7.8); NEUTROPHILS % (AUTO) 62 % (42-75); PLATELET COUNT 263 10^3/uL (130-400); RED CELL DISTRIBUTION WIDTH 12.8 % (10.0-14.5); WHITE BLOOD COUNT 4.8 10^3/uL (4.3-11.0)
[2020-02-27 16:25] LABS: POTASSIUM 3.9 MMOL/L (3.6-5.0)
[2020-02-27 16:26] LABS: CALCIUM 8.5 MG/DL (8.5-10.1)
[2020-02-27 16:31] LABS: CREATININE SERUM 1.12 MG/DL (0.60-1.30)
[2020-02-27 17:00] VITALS: BP 107/77
[2020-02-27 18:00] VITALS: BP 189/91
--- NOTE | 2020-02-27 18:34 | Progress Note - Cardiology ---
Cardiology SOAP Progress Note Subjective: 1545 - 1640 hrs Called by nurses to see pt who briefly had a heart rate of approx 30 and systolic bp of approx 70 and decreased responsiveness. Treated with 1 mg iv atropine, Trendelenburg, iv fluids At my exam, in pain (groin and back) but no cp or shortness of breath or palp or syncope Objective: I&O/Vital Signs 02/27/20 02/27/20 02/27/20 02/27/20 08:18 12:18 13:04 14:44 Temp 36.7 Pulse 66 70 61 Resp 20 B/P (MAP) 180/86 (117) Pulse Ox 98 O2 Delivery Room Air 02/27/20 16:00 Temp 36.9 Constitutional: AAO x 3, other (pale-looking, in pain) Respiratory: No accessory muscle use; other (fair bilat air entry) Cardiovascular: regular rate-rhythm, S1 and S2, systolic murmur (faint IKE ) Gastrointestional: other (Tenderness in RLQ and R groin, no brusing or bruit over femoral a on R, no significant swelling) Extremities: other (no discoloration or swelling of legs; see also under GI exam) Neurologic/Psychiatric: oriented x 3, other (moving all limbs equally) Skin: warm/dry, pallor; No rash on exposed areas, No ulcerations on exposed areas Results/Procedures: Labs Laboratory Tests 02/27/20 08:14: White Blood Count 5.9, Red Blood Count 4.44, Hemoglobin 12.2, Hematocrit 37, Mean Corpuscular Volume 84, Mean Corpuscular Hemoglobin 28, Mean Corpuscular Hemoglobin Concent 33, Red Cell Distribution Width 12.9, Platelet Count 273, Mean Platelet Volume 9.7, Prothrombin Time 12.6, INR Comment 0.9, Activated Partial Thromboplast Time 32, Sodium Level 142, Potassium Level 3.9, Chloride Level 105, Carbon Dioxide Level 27, Anion Gap 10, Blood Urea Nitrogen 23H, Creatinine 1.31H, Estimat Glomerular Filtration Rate 39, BUN/Creatinine Ratio 18, Glucose Level 97, Calcium Level 9.7, Corrected Calcium 9.4, Total Bilirubin 0.7, Aspartate Amino Transf (AST/SGOT) 16, Alanine Aminotransferase (ALT/SGPT) 11, Alkaline Phosphatase 59, Total Protein 7.2, Albumin 4.4, Triglycerides Level 151H, Cholesterol Level 281H, LDL Cholesterol Direct 225H, VLDL Cholesterol 30, HDL Cholesterol 52 02/27/20 15:47: Glucometer 134H 02/27/20 16:09: White Blood Count 4.8, Red Blood Count 3.88L, Hemoglobin 10.7L, Hematocrit 33L, Mean Corpuscular Volume 85, Mean Corpuscular Hemoglobin 28, Mean Corpuscular Hemoglobin Concent 33, Red Cell Distribution Width 12.8, Platelet Count 263, Mean Platelet Volume 9.9, Sodium Level 140, Potassium Level 3.9, Chloride Level 106, Carbon Dioxide Level 25, Anion Gap 9, Blood Urea Nitrogen 19H, Creatinine 1.12, Estimat Glomerular Filtration Rate 47, BUN/Creatinine Ratio 17, Glucose Level 107H, Calcium Level 8.5, Neutrophils (%) (Auto) 62, Lymphocytes (%) (Auto) 29, Monocytes (%) (Auto) 7, Eosinophils (%) (Auto) 3, Basophils (%) (Auto) 0, Neutrophils # (Auto) 2.9, Lymphocytes # (Auto) 1.4, Monocytes # (Auto) 0.3, Eosinophils # (Auto) 0.1, Basophils # (Auto) 0.0 Laboratory Tests 02/27/20 08:14 02/27/20 16:09 A/P: Assessment: * Post-cath groin bleed with pain and transient hypotension & bradycardia (likely vasovagal) * CAD. Card cath of 02/27/20: multivessel coronary artery disease. 70 to 80% proximal stenosis of left anterior descending to which successful balloon angioplasty was carried out with reduction of stenosis to less than 30%. First diagonal is a very small caliber vessel and has severe proximal disease, but is not amenable to intervention. Left circumflex artery mainly consists of large obtuse marginal, which had 90% proximal stenosis to which successful stenting was carried out with Alpine Xience 3.0 x 12 mm stent. Right coronary artery is dominant and has 90% proximal stenosis. The mid right coronary artery has diffuse moderate disease. The terminal posterolateral branch of the right coronary have severe stenoses, but are of small caliber and not amenable to intervention. Mildly elevated left ventricular end-diastolic pressure. * CKD-3 Plan: Measures taken: iv 1 mg atropine I held pressure myself for twenty minutes above the site of entry of sheath into the L femoral artery. Nurses held for another 20 min after that 2nd iv line initiated iv fluids at a rapid rate Stat CBC and BMP. H&H dropped but not at a level where transfusion needed Pain treated with iv Fentanyl 50 mcg in two divided doses Kept under close observation in ICU Contrast CT of groin not done because stability achieved and pt known to have CKD-3 and had already a considerable amount of contrast for card cath and two coronary interventions earlier today, along with considerable fluoro time Time: 15:45 - 16:40 JEB MCKEON MD FACP FAC CCDS Feb 27, 2020 18:34
[2020-02-27 19:00] VITALS: BP 188/93
--- NOTE | 2020-02-27 19:00 | NUR ---
Pt's abdomen is very tender to palpate, beside shift report done, dayshift RN reports it has been tender all day. Pt has bruising to right groin site, no changes noted from dayshift.
[2020-02-27] MEDS: LABETALOL 200 MG (NORMODYNE) TAB PO SCH (22:22)
--- NOTE | 2020-02-27 22:25 | NUR ---
Daughter Tali from [place] contacted this RN, updated on pt condition. Daughter requesting this RN to ask dr to contact family in the morning.
[2020-02-28 00:45] VITALS: BP 169/81
--- NOTE | 2020-02-28 02:19 | NUR ---
Bedside report given to Whitney. Pt reports no pain, states she had a bowel movement and the pain and tenderness in her abdomen is gone.
[2020-02-28 03:44] LABS: MEAN PLATELET VOLUME 10.3 FL (7.4-10.4); RED CELL DISTRIBUTION WIDTH 12.9 % (10.0-14.5); WHITE BLOOD COUNT 10.1 10^3/uL (4.3-11.0)
[2020-02-28 03:50] LABS: POTASSIUM 3.8 MMOL/L (3.6-5.0)
[2020-02-28 03:52] LABS: CALCIUM 8.6 MG/DL (8.5-10.1)
[2020-02-28 03:56] LABS: CREATININE SERUM 1.15 MG/DL (0.60-1.30)
[2020-02-28 04:17] VITALS: BP 134/58
--- NOTE | 2020-02-28 07:51 | Progress Note - Cardiology ---
Cardiology SOAP Progress Note Subjective: Sitting up in a recliner at the bedside. States she feels well this morning and hopes to go home. Reports she had a BM this morning and has no further abdominal discomfort. No c/o CP, dyspnea, palpitations, syncope or near syncope. No c/o right groin discomfort. Objective: I&O/Vital Signs 02/27/20 02/27/20 02/28/20 02/28/20 21:00 23:30 00:45 01:00 Temp 37.0 Pulse 82 81 Resp 20 B/P (MAP) 169/81 (110) Pulse Ox 97 O2 Delivery Nasal Cannula Nasal Cannula Nasal Cannula O2 Flow Rate 2.00 1.00 2.00 02/28/20 02/28/20 02/28/20 01:50 04:17 07:59 Temp 37.1 37.1 Pulse 74 71 Resp 18 18 B/P (MAP) 134/58 (83) 142/68 (92) Pulse Ox 94 95 O2 Delivery Room Air Nasal Cannula Nasal Cannula O2 Flow Rate 2.00 2.00 02/28/20 00:00 Intake Total 1100 ml Output Total 550 ml Balance 550 ml Side: right Groin site without hematoma: Yes Condition: DP/PT pulses palpable Bruising: moderated bruising Constitutional: AAO x 3, well-developed, well-nourished Respiratory: No accessory muscle use; other (fair bilat air entry) Cardiovascular: regular rate-rhythm, S1 and S2, systolic murmur (faint IKE ) Gastrointestional: No tender; soft; No distended; other (Tenderness in RLQ and R groin, no brusing or bruit over femoral a on R, no significant swelling) Extremities: no lower extremity edema bilateral Neurologic/Psychiatric: oriented x 3, other (moving all limbs equally) Skin: warm/dry, pallor; No rash on exposed areas, No ulcerations on exposed areas Results/Procedures: Labs Laboratory Tests 02/27/20 15:47: Glucometer 134H 02/27/20 16:09: White Blood Count 4.8, Red Blood Count 3.88L, Hemoglobin 10.7L, Hematocrit 33L, Mean Corpuscular Volume 85, Mean Corpuscular Hemoglobin 28, Mean Corpuscular Hemoglobin Concent 33, Red Cell Distribution Width 12.8, Platelet Count 263, Mean Platelet Volume 9.9, Neutrophils (%) (Auto) 62, Lymphocytes (%) (Auto) 29, Monocytes (%) (Auto) 7, Eosinophils (%) (Auto) 3, Basophils (%) (Auto) 0, Neutrophils # (Auto) 2.9, Lymphocytes # (Auto) 1.4, Monocytes # (Auto) 0.3, Eosinophils # (Auto) 0.1, Basophils # (Auto) 0.0, Sodium Level 140, Potassium Level 3.9, Chloride Level 106, Carbon Dioxide Level 25, Anion Gap 9, Blood Urea Nitrogen 19H, Creatinine 1.12, Estimat Glomerular Filtration Rate 47, BUN/Creatinine Ratio 17, Glucose Level 107H, Calcium Level 8.5 02/28/20 03:02: White Blood Count 10.1, Red Blood Count 3.94L, Hemoglobin 11.0L, Hematocrit 34L, Mean Corpuscular Volume 86, Mean Corpuscular Hemoglobin 28, Mean Corpuscular Hemoglobin Concent 33, Red Cell Distribution Width 12.9, Platelet Count 251, Mean Platelet Volume 10.3, Sodium Level 141, Potassium Level 3.8, Chloride Level 108H, Carbon Dioxide Level 23, Anion Gap 10, Blood Urea Nitrogen 16, Creatinine 1.15, Estimat Glomerular Filtration Rate 45, BUN/Creatinine Ratio 14, Glucose Level 107H, Calcium Level 8.6 Microbiology 02/27/20 MRSA Screen - Final, Complete MRSA not isolated A/P: Assessment: * Post-cath groin bleed with pain and transient hypotension & bradycardia (likely vasovagal) - resolved * CAD. Card cath of 02/27/20: multivessel coronary artery disease. 70 to 80% pro ximal stenosis of left anterior descending to which successful balloon angioplasty was carried out with reduction of stenosis to less than 30%. First diagonal is a very small caliber vessel and has severe proximal disease, but is not amenable to intervention. Left circumflex artery mainly consists of large obtuse marginal, which had 90% proximal stenosis to which successful stenting was carried out with Alpine Xience 3.0 x 12 mm stent. Right coronary artery is dominant and has 90% proximal stenosis. The mid right coronary artery has diffuse moderate disease. The terminal posterolateral branch of the right coronary have severe stenoses, but are of small caliber and not amenable to intervention. Mildly elevated left ventricular end-diastolic pressure. * CKD-3 * MPI of February 13, 2020 is indicative of a small amt of anterolateral ischemia. LVEF 75%. Normal regional wall motion * Hypertension * H/o hyperlipidemia. Intolerant to statin (due to liver enz elev when on it) * Multiple sclerosis diagnosed in the . Has had symptoms of dizziness and loss of vision in the R eye * Echo of February 13, 2020 showed LVEF 60-65%. Grade 1 diastolic dysfunction. LA is mildly to mod dilated. Mod to severe MR. Mod Aortic regurg. RVSP 25 mmHg * Fam h/o early CAD (brother in his 60s) Plan: Overall feeling better this morning Continue current regimen including Plavix and ASA Continue statin - monitor lab Renal function improved from time of admission Ambulated in the espinoza without difficulty DG STERLING Feb 28, 2020 07:51
[2020-02-28 07:59] VITALS: BP 142/68
[2020-02-28] MEDS: LABETALOL 200 MG (NORMODYNE) TAB PO SCH (08:04)
[2020-02-28] MEDS ORDERED: ATOR40TA PO (08:43)
[2020-02-28] MEDS ORDERED: CLOP75TA28 PO (08:43)
[2020-02-28] MEDS ORDERED: CLOPIDOGREL 75 MG (PLAVIX) TABLET PO SCH (09:00)
[2020-02-28] MEDS ORDERED: ASPIRIN 81 MG CHEW (CHILDREN'S ASA) PO SCH (09:00)
--- NOTE | 2020-02-28 09:22 | Discharge Inst-Cardiology ---
Discharge Inst-Cardiac Discharge Medications New Medications: Atorvastatin Calcium (Lipitor) 40 Mg Tablet 40 MG PO HS, #30 TAB 5 Refills Clopidogrel Bisulfate (Clopidogrel) 75 Mg Tablet 75 MG PO DAILY, #30 TAB 5 Refills Continued Medications: Aspirin (Aspir 81) 81 Mg Tablet.dr 81 MG PO DAILY, TAB Labetalol HCl (Labetalol HCl) 100 Mg Tablet 200 MG PO BID, TAB Vit A/Vit C/Vit E/Zinc/Copper (Preservision Areds Tablet) 1 Each Tablet 1 EACH PO DAILY, TAB New, Converted or Re-Newed RX: Transmitted to Pharmacy Patient Instructions Patient Instructions: PLEASE STOP BY DR. MCKEON'S OFFICE TODAY BEFORE GOING HOME TO GET INSTRUCTIONS FOR CARDIAC CATHERERIZATION ON THURSDAY, MARCH 05, 2020 AND BODY WASH DG STERLING Feb 28, 2020 09:22
--- NOTE | 2020-02-28 14:24 | Progress Note - Cardiology ---
Cardiology SOAP Progress Note Subjective: No cp or palp or syncope or shortness of breath No focal weakness No leg or groin discomfort No n/v/d Wishes to go home Objective: I&O/Vital Signs 02/28/20 02/28/20 02/28/20 02/28/20 04:17 07:02 07:59 08:00 Temp 37.1 37.1 Pulse 74 65 71 Resp 18 18 B/P (MAP) 134/58 (83) 142/68 (92) Pulse Ox 94 95 O2 Delivery Nasal Cannula Room Air Room Air O2 Flow Rate 2.00 02/28/20 10:35 B/P (MAP) 02/28/20 00:00 Intake Total 1100 ml Output Total 550 ml Balance 550 ml Side: right Groin site without hematoma: Yes Condition: DP/PT pulses palpable Bruising: moderated bruising Constitutional: AAO x 3, well-developed, well-nourished Respiratory: No accessory muscle use; other (fair bilat air entry) Cardiovascular: regular rate-rhythm, S1 and S2, systolic murmur (faint IKE ) Gastrointestional: No tender; soft; No distended; other (Tenderness in RLQ and R groin, no brusing or bruit over femoral a on R, no significant swelling) Extremities: no lower extremity edema bilateral Neurologic/Psychiatric: oriented x 3, other (moving all limbs equally) Skin: warm/dry, pallor; No rash on exposed areas, No ulcerations on exposed areas Results/Procedures: Labs Laboratory Tests 02/27/20 15:47: Glucometer 134H 02/27/20 16:09: White Blood Count 4.8, Red Blood Count 3.88L, Hemoglobin 10.7L, Hematocrit 33L, Mean Corpuscular Volume 85, Mean Corpuscular Hemoglobin 28, Mean Corpuscular Hemoglobin Concent 33, Red Cell Distribution Width 12.8, Platelet Count 263, Mean Platelet Volume 9.9, Neutrophils (%) (Auto) 62, Lymphocytes (%) (Auto) 29, Monocytes (%) (Auto) 7, Eosinophils (%) (Auto) 3, Basophils (%) (Auto) 0, Neutrophils # (Auto) 2.9, Lymphocytes # (Auto) 1.4, Monocytes # (Auto) 0.3, Eo sinophils # (Auto) 0.1, Basophils # (Auto) 0.0, Sodium Level 140, Potassium Level 3.9, Chloride Level 106, Carbon Dioxide Level 25, Anion Gap 9, Blood Urea Nitrogen 19H, Creatinine 1.12, Estimat Glomerular Filtration Rate 47, BUN/Creat inine Ratio 17, Glucose Level 107H, Calcium Level 8.5 02/28/20 03:02: White Blood Count 10.1, Red Blood Count 3.94L, Hemoglobin 11.0L, Hematocrit 34L, Mean Corpuscular Volume 86, Mean Corpuscular Hemoglobin 28, Mean Corpuscular Hemoglobin Concent 33, Red Cell Distribution Width 12.9, Platelet Count 251, Mean Platelet Volume 10.3, Sodium Level 141, Potassium Level 3.8, Chloride Level 108H, Carbon Dioxide Level 23, Anion Gap 10, Blood Urea Nitrogen 16, Creatinine 1.15, Estimat Glomerular Filtration Rate 45, BUN/Creatinine Ratio 14, Glucose Level 107H, Calcium Level 8.6 Microbiology 02/27/20 MRSA Screen - Final, Complete MRSA not isolated A/P: Assessment: * Post-cath groin bleed with pain and transient hypotension & bradycardia (likely vasovagal) - resolved * CAD. Card cath of 02/27/20: multivessel coronary artery disease. 70 to 80% proximal stenosis of left anterior descending to which successful balloon angioplasty was carried out with reduction of stenosis to less than 30%. First diagonal is a very small caliber vessel and has severe proximal disease, but is not amenable to intervention. Left circumflex artery mainly consists of large obtuse marginal, which had 90% proximal stenosis to which successful stenting was carried out with Alpine Xience 3.0 x 12 mm stent. Right coronary artery is dominant and has 90% proximal stenosis. The mid right coronary artery has diffuse moderate disease. The terminal posterolateral branch of the right coronary have severe stenoses, but are of small caliber and not amenable to intervention. Mildly elevated left ventricular end-diastolic pressure. * CKD-3 * MPI of February 13, 2020 was indicative of a small amt of anterolateral ischemia. LVEF 75%. Normal regional wall motion * Hypertension * H/o hyperlipidemia. Intolerant to statin (due to liver enz elev when on it) * Multiple sclerosis diagnosed in the . Has had symptoms of dizziness and loss of vision in the R eye * Echo of February 13, 2020 showed LVEF 60-65%. Grade 1 diastolic dysfunction. LA is mildly to mod dilated. Mod to severe MR. Mod Aortic regurg. RVSP 25 mmHg * Fam h/o early CAD (brother in his 60s) Plan: Overall feeling better this morning Continue current regimen including Plavix and ASA Continue statin - monitor lab Renal function improved from time of admission Ambulated in the espinoza without difficulty I discussed her CV issues and interventions undertaken and further treatment plan with her Outpt f/u advised JEB MCKEON MD FACP FAC [facility] Feb 28, 2020 14:24
== END 2020-02-28 10:35 | disposition home or self-care (01) ==
LOC: CATH 07:19 → ICU 12:15 → CSD 02-28 01:47 → CATH 02-28 10:35
PROVIDERS: ATTEND Internal Medicine Cardiovascular Disease
DX: I25.10 Atherosclerotic heart disease of native coronary artery without angina pectoris (principal); I99.8 Other disorder of circulatory system; I95.9 Hypotension, unspecified; I12.9 Hypertensive chronic kidney disease with stage 1 through stage 4 chronic kidney disease, or unspecified chronic kidney disease; N18.3 Chronic kidney disease, stage 3 (moderate); E78.5 Hyperlipidemia, unspecified; R73.01 Impaired fasting glucose; Z88.5 Allergy status to narcotic agent; Z90.710 Acquired absence of both cervix and uterus; Z90.49 Acquired absence of other specified parts of digestive tract; Z79.899 Other long term (current) drug therapy; Z79.82 Long term (current) use of aspirin
CPT/HCPCS: 36415; 80048; 80053; 80061; 82962; 85025; 85027; 85610; 85730; 86850; 86900; 86901; 86920; 87081; 93005; 93458

== ENCOUNTER 2020-03-05 09:44 | Day surgery (SDC) | payer MEDICARE ==
[2020-03-05] VITALS (13 sets, daily range): BP systolic 136–179; BP diastolic 79–95
[~2020-03-05] VITALS: Ht 157 cm; Wt 73.6 kg
[~2020-03-05 09:44] MED LIST changes: +ASPI-586 PO; +ATOR40TA PO; +BETA1TAB15 PO; -CATHETER FLUSH 10 ML SYR IV PRN; +CLOP75TA28 PO; -HEParin (CATH LAB) 0 ML IV ONE; -HEParin 1000 UNIT/ML (10ML VIAL) FOR BOLUS ONE; +LABE100T6 PO; -LIDOCAINE 1% INJ 20 ML 20 ML VIAL ONE; -REGADENOSON 0.4 MG/5 ML SYR (LEXISCAN) IV ONE
[2020-03-05] MEDS ORDERED: NS IV 1000 ML 1,000 ML IV SCH (10:02)
[2020-03-05] MEDS ORDERED: HEParin (CATH LAB) 2,000 ML IV ONE (10:03)
[2020-03-05] MEDS ORDERED: LIDOCAINE 1% INJ 20 ML 20 ML VIAL ONE (10:03)
[2020-03-05 10:35] LABS: HEMOGLOBIN 13.2 G/DL (11.5-16.0); MEAN PLATELET VOLUME 10.2 FL (7.4-10.4); RED CELL DISTRIBUTION WIDTH 12.9 % (10.0-14.5); WHITE BLOOD COUNT 7.9 10^3/uL (4.3-11.0)
[2020-03-05] MEDS ORDERED: AMLO10TA7 PO (10:41)
[2020-03-05 10:51] LABS: INR 0.9 (0.8-1.4); PROTHROMBIN TIME PATIENT 12.7 SEC (12.2-14.7)
[2020-03-05 10:56] LABS: ALANINE AMINOTRANSFERASE 15 U/L (0-55); ALBUMIN 4.7 GM/DL (3.2-4.5); ALKALINE PHOSPHATASE 64 U/L (40-136); BILIRUBIN,TOTAL 0.9 MG/DL (0.1-1.0); BUN/CREATININE RATIO 14; CALCIUM 9.9 MG/DL (8.5-10.1); CARBON DIOXIDE 27 MMOL/L (21-32); CHLORIDE 104 MMOL/L (98-107); CHOLESTEROL 192 MG/DL (< 200); CREATININE SERUM 1.22 MG/DL (0.60-1.30); GFR ESTIMATED 42; GLUCOSE 102 MG/DL (70-105); HDL CHOLESTEROL 50 MG/DL (40-60); POTASSIUM 3.6 MMOL/L (3.6-5.0); SODIUM 142 MMOL/L (135-145); TOTAL PROTEIN 7.8 GM/DL (6.4-8.2); TRIGLYCERIDES 128 MG/DL (<150); VLDL CHOLESTEROL 26 MG/DL (5-40)
--- OUTSIDE RECORDS SUMMARY | 2020-03-05 11:45 | XMS REPORT | Continuity of Care Document ---
Author Organization Unknown Address Unknown Phone Unavailable Allergies Active Description Code Type Severity Reaction Onset Reported/Identified Relationship to Patient Clinical Status Yes morphine [id number] Drug Allergy Mild N/A 06/30/2019 Medications There is no data. Problems Date Dx Coded Attending Type Code Diagnosis Diagnosed By 12/21/2018 Ot M79.631 PA IN IN RIGHT FOREARM 12/23/2018 Ot M79.631 PA IN IN RIGHT FOREARM 05/15/2019 NATY CARMEN TISSUE INSERTER Ot 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 W/O MYELOPATHY OR RADICULOPA 05/15/2019 NATY CARMEN TISSUE INSERTER Ot Z90.49 ACQUIRED ABSENCE OF OTHER SPECIFIED [...] W/O MYELOPATHY OR RADICULOPA 06/30/2019 NATY CARMEN TISSUE INSERTER Ot Z90.49 ACQUIRED ABSENCE OF OTHER SPECIFIED PART 07/05/2019 ORTIZ DO, MITALI L Ot I10 ESSENTIAL (PRIMARY) HYPERTENSION 07/05/2019 ORTIZ DO, MITALI L Ot I16.0 HYPERTENSIVE URGENCY 07/05/2019 ORTIZ DO, MITALI L Ot R42 DIZZINESS AND GIDDINESS 07/05/2019 ORTIZ DO, MITALI L Ot Z88.5 ALLERGY STATUS TO NARCOTIC AGENT STATUS 08/23/2019 NATY CARMEN APRN Ot I1 0 ESSENTIAL (PRIMARY) HYPERTENSION 08/23/2019 NATY CARMEN TISSUE INSERTER Ot K57.30 DVRTCLOS OF LG INT W/O PERFORATION OR AB 08/23/2019 NELLANATY TISSUE INSERTER Ot N28.1 CYST OF KIDNEY, ACQUIRED 08/23/2019 NELLA, NATY S TISSUE INSERTER Ot N83.8 OTH NONINFLAMMATORY DISORD OF OVARY, FAL 08/23/2019 NELLA NATY S TISSUE INSERTER Ot R19.00 INTRA-ABD AND PELVIC SWELLING, MASS AND 11/29/2019 Ot M79.631 PA IN IN RIGHT FOREARM 11/29/2019 NELLA, NATY S TISSUE INSERTER Ot 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 W/O MYELOPATHY OR RADICULOPA 11/29/2019 NELLA, NATY S TISSUE INSERTER Ot Z90.49 ACQUIRED ABSENCE OF OTHER SPECIFIED PART 11/29/2019 NELLA, NATY Gaspar TISSUE INSERTER Ot I1 0 ESSENTIAL (PRIMARY) HYPERTENSION 11/29/2019 NELLA, NATY S TISSUE INSERTER Ot K57.30 DVRTCLOS OF LG INT W/O PERFORATION OR AB 11/29/2019 NELLA NATY Gaspar TISSUE INSERTER Ot N28.1 CYST OF KIDNEY, ACQUIRED 11/29/2019 NELLA, NATY S TISSUE INSERTER Ot N83.8 OTH NONINFLAMMATORY DISORD OF OVARY, FAL 11/29/2019 NELLANATY S TISSUE INSERTER Ot R19.00 INTRA-ABD AND PELVIC SWELLING, MASS AND 12/01/2019 NELLA NATY S TISSUE INSERTER Ot M25.511 PAIN IN RIGHT SHOULDER 12/01/2019 NELLA, NATY S TISSUE INSERTER Ot M25.811 OTHER SPECIFIED JOINT DISORDERS, RIGHT S 02/15/2020 BAIMADG L DOG BEAUTICIAN Ot E78.5 HYPERLIPIDEMIA, UNSPECIFIED 02/15/2020 BAIMA, DG L DOG BEAUTICIAN Ot I08.0 RHEUMATIC DISORDERS OF BOTH MITRAL AND A 02/15/2020 BAIMA DG L DOG BEAUTICIAN Ot 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 03/04/2020 MIKE ZAMUDIO FACC, JEB FACP CCDS Ot E78.5 HYPERLIPIDEMIA, UNSPECIFIED 03/04/2020 MIKE ZAMUDIO FACC, JEB FACP CCDS Ot I12.9 HYPERTENSIVE CHRONIC KIDNEY DISEASE W ST 03/04/2020 MIKE ZAMUDIO FACC, JEB FACP CCDS Ot I25.10 ATHSCL HEART DISEASE OF [place] CORONARY 03/04/2020 MIKE ZAMUDIO FACC, JEB FACP CCDS Ot I95.9 HYPOTENSION, UNSPECIFIED 03/04/2020 MIKE ZAMUDIO [facility], ALI FACP CCDS Ot I99.8 OTHER DISORDER OF CIRCULATORY SYSTEM 03/04/2020 MIKE ZAMUDIO [facility], ALI FACP CCDS Ot N18.3 CHRONIC KIDNEY DISEASE, STAGE 3 (MODERAT 03/04/2020 MIKE ZAMUDIO [facility], ALI FACP CCDS Ot R73.01 IMPAIRED FASTING GLUCOSE 03/04/2020 MIKE ZAMUDIO [facility], ALI FACP CCDS Ot Z79.82 HAZARDOUS SUBSTANCES SCIENTIST (CURRENT) USE OF ASPIRIN 03/04/2020 MIKE ZAMUDIO [facility], ALI FACP CCDS Ot Z79.899 OTHER SKILLED NURSING (CURRENT) DRUG THERAPY 03/04/2020 MIKE ZAMUDIO [facility], ALI FACP CCDS Ot Z88.5 ALLERGY STATUS TO NARCOTIC AGENT STATUS 03/04/2020 MIKE ZAMUDIO [facility], ALI FACP CCDS Ot Z90.49 ACQUIRED ABSENCE OF OTHER SPECIFIED PART 03/04/2020 MIKE ZAMUDIO [facility], ALI FACP CCDS Ot Z90.710 ACQUIRED ABSENCE OF BOTH CERVIX AND UTER Procedures There is no data. Results Test [...] NRG STATEMENT OF ADEQUACY: NRG INTERPRETATION/RESULT: NRG HOSE TENDER: NRG HPV mRNA E6/E7, SUREPATH VIAL Not Detected NOT DETECTED COMMENT NRG CMP - 08/09/19 09:42 GLUCOSE 118 mg/dL 65-99 UREA NITROGEN (BUN) 22 mg/dL 7-25 CREATININE 1.26 mg/dL 0.60-0.88 eGFR NON-AFR. MALTESE 40 mL/min/1.73m2 > OR = 60 eGFR [...] - 11/29/19 13:16 TSH 1.40 mIU/L 0.40-4.50 Automated blood complete blood count (he mogram) panel - 02/27/20 08:14 Blood leukocytes automated count (number/volume) 5.9 10*3/uL 4.3-11.0 Blood erythrocytes automated count (number/volume) 4.44 10*6/uL 4.35-5.85 Venous blood hemoglobin measurement (mass/volume) 12.2 g/dL 11.5-16.0 Blood hematocrit (volume fraction) 37 % 35-52 Automated erythrocyte mean corpuscular volume 84 [ foz_us] 80-99 Automated erythrocyte mean corpuscular h emoglobin (mass per erythrocyte) 28 pg 25-34 Automated erythrocyte mean corpuscular h emoglobin concentration measurement (mass/volume) 33 g/dL 32-36 Automated erythrocyte distribution width ratio 12. 9 % 10.0- 14.5 Automated blood platelet count (count/volume) 273 10*3/uL 130-400 Automated blood platelet mean volume measurement 9.7 [foz_us] 7.4-10.4 PT panel in platelet poor plasma by coag ulation assay - 02/27/20 08:14 Prothrombin time (PT) in platelet poor plasma by coagu lation assay 12.6 s 12.2-14.7 INR in platelet poor plasma or blood by coagulation as say 0.9 0.8-1.4 Activated partial thromboplastin time (a PTT) in platelet poor plasma bycoagulation assay - 02/27/20 08:14 Activated partial thromboplastin time (a PTT) in platelet poor plasma bycoagulation assay 32 s 24-35 Comprehensive metabolic panel - 02/27/20 08:14 Serum or plasma sodium measurement (moles/volume) 142 mmol/L 135-145 Serum or plasma potassium measurement (moles/volume) 3.9 mmol/L 3.6-5.0 Serum or plasma chloride measurement (moles/volume) 105 mmol/L 98-107 Carbon dioxide 27 mmol/L 21-32 Serum or plasma anion gap determination (moles/volume) 10 mmol/L 5-14 Serum or plasma urea nitrogen measurement (mass/volume ) 23 mg/dL 7-18 Serum or plasma creatinine measurement (mass/volume) 1.31 mg/dL 0.60-1.30 Serum or plasma urea nitrogen/creatinine mass ratio 18 NRG Serum or plasma creatinine measurement w ith calculation of estimated glomerular filtration rate 39 NRG Serum or plasma glucose measurement (mass/volume) 97 mg/dL 70-105 Serum or plasma calcium measurement (mass/volume) 9.7 mg/dL 8.5-10.1 Serum or plasma total bilirubin measurement (mass/volu me) 0.7 mg/dL 0.1-1.0 Serum or plasma alkaline phosphatase dusty surement (enzymatic activity/volume) 59 U/L 40-136 Serum or plasma aspartate aminotransfera se measurement (enzymatic activity/volume) 16 U/L 5-34 Serum or plasma alanine aminotransferase measurement (enzymatic activity/volume) 11 U/L 0-55 Serum or plasma protein measurement (mass/volume) 7.2 g/dL 6.4-8.2 Serum or plasma albumin measurement (mass/volume) 4.4 g/dL 3.2-4.5 CALCIUM CORRECTED 9.4 mg/dL 8.5-10.1 Lipid 1996 panel - 02/27/20 08:14 Serum or plasma triglyceride measurement (mass/volume) 151 mg/dL <150 Serum or plasma cholesterol measurement (mass/volume) 281 mg/dL < 200 Serum or plasma cholesterol in HDL measurement (mass/v olume) 52 mg/dL 40-60 Cholesterol in LDL [mass/volume] in serum or plasma by direct assay 225 mg/dL 1-129 Serum or plasma cholesterol in VLDL measurement (mass/ volume) 30 mg/dL 5-40 Methicillin resistant Staphylococcus aur eus (MRSA) screening culture - 02/27/20 08:14 Methicillin resistant Staphylococcus aureus (MRSA) scr eening culture NEG NRG Capillary blood glucose measurement by g lucometer (mass/volume) - 02/27/20 15:47 Capillary blood glucose measurement by glucometer (mas s/volume) 134 mg/dL 70-110 Complete blood count (CBC) with automate d white blood cell (WBC) differential - 02/27/20 16:09 Blood leukocytes automated count (number/volume) 4.8 10*3/uL 4.3-11.0 Blood erythrocytes automated count (number/volume) 3.88 10*6/uL 4.35-5.85 Venous blood hemoglobin measurement (mass/volume) 10.7 g/dL 11.5-16.0 Blood hematocrit (volume fraction) 33 % 35-52 Automated erythrocyte mean corpuscular volume 85 [ foz_us] 80-99 Automated erythrocyte mean corpuscular h emoglobin (mass per erythrocyte) 28 pg 25-34 Automated erythrocyte mean corpuscular h emoglobin concentration measurement (mass/volume) 33 g/dL 32-36 Automated erythrocyte distribution width ratio 12. 8 % 10.0- 14.5 Automated blood platelet count (count/volume) 263 10*3/uL 130-400 Automated blood platelet mean volume measurement 9.9 [foz_us] 7.4-10.4 Automated blood neutrophils/100 leukocytes 62 % 42-75 Automated blood lymphocytes/100 leukocytes 29 % 12-44 Blood monocytes/100 leukocytes 7 % 0-12 Automated blood eosinophils/100 leukocytes 3 % 0-10 Automated blood basophils/100 leukocytes 0 % 0-10 Blood neutrophils automated count (number/volume) 2.9 10*3 1.8-7.8 Blood lymphocytes automated count (number/volume) 1.4 10*3 1.0-4.0 Blood monocytes automated count (number/volume) 0. 3 10*3 0.0-1.0 Automated eosinophil count 0.1 10*3/uL 0 .0-0.3 Automated blood basophil count (count/volume) 0.0 10*3/uL 0.0-0.1 Whole blood basic metabolic panel - 11/16 16:09 Serum or plasma sodium measurement (moles/volume) 140 mmol/L 135-145 Serum or plasma potassium measurement (moles/volume) 3.9 mmol/L 3.6-5.0 Serum or plasma chloride measurement (moles/volume) 106 mmol/L 98-107 Carbon dioxide 25 mmol/L 21-32 Serum or plasma anion gap determination (moles/volume) 9 mmol/L 5-14 Serum or plasma urea nitrogen measurement (mass/volume ) 19 mg/dL 7-18 Serum or plasma creatinine measurement (mass/volume) 1.12 mg/dL 0.60-1.30 Serum or plasma urea nitrogen/creatinine mass ratio 17 NRG Serum or plasma creatinine measurement w ith calculation of estimated glomerular filtration rate 47 NRG Serum or plasma glucose measurement (mass/volume) 107 mg/dL 70-105 Serum or plasma calcium measurement (mass/volume) 8.5 mg/dL 8.5-10.1 RED CELLS LEUKO REDUCED AS1 - 02/27/20 1 6:09 RED CELLS LEUKO REDUCED AS1 N OT AVAILABLE NRG Blood type T Indirect antibody screen pa john - 02/27/20 16:09 WRISTBAND NUMBER [id number] NRG ABO+Rh group AP NRG Blood group antibody screen NEGATIVE NR G Whole blood basic metabolic panel - 12/14 03:02 Serum or plasma sodium measurement (moles/volume) 141 mmol/L 135-145 Serum or plasma potassium measurement (moles/volume) 3.8 mmol/L 3.6-5.0 Serum or plasma chloride measurement (moles/volume) 108 mmol/L 98-107 Carbon dioxide 23 mmol/L 21-32 Serum or plasma anion gap determination (moles/volume) 10 mmol/L 5-14 Serum or plasma urea nitrogen measurement (mass/volume ) 16 mg/dL 7-18 Serum or plasma creatinine measurement (mass/volume) 1.15 mg/dL 0.60-1.30 Serum or plasma urea nitrogen/creatinine mass ratio 14 NRG Serum or plasma creatinine measurement w ith calculation of estimated glomerular filtration rate 45 NRG Serum or plasma glucose measurement (mass/volume) 107 mg/dL 70-105 Serum or plasma calcium measurement (mass/volume) 8.6 mg/dL 8.5-10.1 Automated blood complete blood count (go2 media) panel - 02/28/20 03:02 Blood leukocytes automated count (number/volume) 10.1 10*3/uL 4.3-11.0 Blood erythrocytes automated count (number/volume) 3.94 10*6/uL 4.35-5.85 Venous blood hemoglobin measurement (mass/volume) 11.0 g/dL 11.5-16.0 Blood hematocrit (volume fraction) 34 % 35-52 Automated erythrocyte mean corpuscular volume 86 [ foz_us] 80-99 Automated erythrocyte mean corpuscular h emoglobin (mass per erythrocyte) 28 pg 25-34 Automated erythrocyte mean corpuscular h emoglobin concentration measurement (mass/volume) 33 g/dL 32-36 Automated erythrocyte distribution width ratio 12. 9 % 10.0- 14.5 Automated blood platelet count (count/volume) 251 10*3/uL 130-400 Automated blood platelet mean volume measurement 10.3 [foz_us] 7.4-10.4 Automated blood complete blood count (go2 media) panel - 03/05/20 10:21 Blood leukocytes automated count (number/volume) 7.9 10*3/uL 4.3-11.0 Blood erythrocytes automated count (number/volume) 4.71 10*6/uL 4.35-5.85 Venous blood hemoglobin measurement (mass/volume) 13.2 g/dL 11.5-16.0 Blood hematocrit (volume fraction) 39 % 35-52 Automated erythrocyte mean corpuscular volume 83 [ foz_us] 80-99 Automated erythrocyte mean corpuscular h emoglobin (mass per erythrocyte) 28 pg 25-34 Automated erythrocyte mean corpuscular h emoglobin concentration measurement (mass/volume) 34 g/dL 32-36 Automated erythrocyte distribution width ratio 12. 9 % 10.0- 14.5 Automated blood platelet count (count/volume) 347 10*3/uL 130-400 Automated blood platelet mean volume measurement 10.2 [foz_us] 7.4-10.4 PT panel in platelet poor plasma by coag ulation assay - 03/05/20 10:21 Prothrombin time (PT) in platelet poor plasma by coagu lation assay 12.7 s 12.2-14.7 INR in platelet poor plasma or blood by coagulation as say 0.9 0.8-1.4 Activated partial thromboplastin time (a PTT) in platelet poor plasma bycoagulation assay - 03/05/20 10:21 Activated partial thromboplastin time (a PTT) in platelet poor plasma bycoagulation assay 30 s 24-35 Comprehensive metabolic panel - 03/05/20 10:21 Serum or plasma sodium measurement (moles/volume) 142 mmol/L 135-145 Serum or plasma potassium measurement (moles/volume) 3.6 mmol/L 3.6-5.0 Serum or plasma chloride measurement (moles/volume) 104 mmol/L 98-107 Carbon dioxide 27 mmol/L 21-32 Serum or plasma anion gap determination (moles/volume) 11 mmol/L 5-14 Serum or plasma urea nitrogen measurement (mass/volume ) 17 mg/dL 7-18 Serum or plasma creatinine measurement (mass/volume) 1.22 mg/dL 0.60-1.30 Serum or plasma urea nitrogen/creatinine mass ratio 14 NRG Serum or plasma creatinine measurement w ith calculation of estimated glomerular filtration rate 42 NRG Serum or plasma glucose measurement (mass/volume) 102 mg/dL 70-105 Serum or plasma calcium measurement (mass/volume) 9.9 mg/dL 8.5-10.1 Serum or plasma total bilirubin measurement (mass/volu me) 0.9 mg/dL 0.1-1.0 Serum or plasma alkaline phosphatase dusty surement (enzymatic activity/volume) 64 U/L 40-136 Serum or plasma aspartate aminotransfera se measurement (enzymatic activity/volume) 20 U/L 5-34 Serum or plasma alanine aminotransferase measurement (enzymatic activity/volume) 15 U/L 0-55 Serum or plasma protein measurement (mass/volume) 7.8 g/dL 6.4-8.2 Serum or plasma albumin measurement (mass/volume) 4.7 g/dL 3.2-4.5 Lipid 1996 panel - 03/05/20 10:21 Serum or plasma triglyceride measurement (mass/volume) 128 mg/dL <150 Serum or plasma cholesterol measurement (mass/volume) 192 mg/dL < 200 Serum or plasma cholesterol in HDL measurement (mass/v olume) 50 mg/dL 40-60 Cholesterol in LDL [mass/volume] in serum or plasma by direct assay 129 mg/dL 1-129 Serum or plasma cholesterol in VLDL measurement (mass/ volume) 26 mg/dL 5-40 Encounters ACCT No. Visit Date/Time Discharge Status Pt. Type Provider Facility Loc./Unit Complaint [id number] 11/29/2019 11:20:00 11/29/2019 23:59: 59 CLS Outpatient [facility] [id number] 11/29/2019 11:20:00 Document Registration [id number] 08/09/2019 09:30:00 Document Registration [id number] 08/08/2019 11:20:00 Document Registration [id number] 12/21/2018 10:00:00 Document Registration [id number] 02/27/2020 07:19:00 10:35:00 DIS Outpatient JEB MCKEON MD, FACC, FACP CC DS [facility] CATH ANGINA [id number] 02/13/2020 10:41:00 23:59:59 CLS Outpatient DG STERLING [facility] CARD CHEST DISCOMFORT,HT,HYPERLIPIDEMIA [id number] 12/05/2019 15:00:00 23:59:59 CLS Preadmit JEB MCKEON MD, FACC, FACP CCDS [facility] CATH ABGINA,SOB,FATI QAMAR,CKD,HTN [id number] 11/29/2019 12:17:00 23:59:59 CLS Outpatient NATY CARMEN APRN [facility] RAD FS M25.511 [id number] 08/10/2019 10:42:00 23:59:59 CLS Outpatient NATY CARMEN TISSUE INSERTER [facility] RAD FS PELVIC MASS [id number] 06/30/2019 13:31:00 16:00:00 DIS Emergency ORTIZ MITALI FISCHER [facility] ER FS DIZZINESS; NAUSEA; KIET FEET/FACIAL [place] [id number] 05/11/2019 15:48:00 23:59:59 CLS Outpatient NATY CARMEN TISSUE INSERTER [facility] RAD FS M54.6 [id number] 03/05/2020 09:44:[address] Outpatient MIKE ZAMUDIO FACC, JEB GUERRA CCDS [facility] CATH ANGINA [id number] 12/21/2018 10:45:00 Document Registration
[2020-03-05] MEDS ORDERED: HEParin 1000 UNIT/ML (10ML VIAL) FOR BOLUS ONE (12:32)
[2020-03-05] MEDS ORDERED: fentaNYL INJECTION 100 MCG/2 ML AMP ONE ×2 (12:32→17:56)
[2020-03-05] MEDS ORDERED: MIDAZOLAM 5 MG/5 ML (VERSED) VIAL ONE (12:32)
--- NOTE | 2020-03-05 12:39 | Cardiac Procedure Note-CS/ASA ---
Pre-Procedure Note Pre-Op Procedure Note H&P Reviewed The H&P was reviewed, patient examined and no changes noted. Date H&P Reviewed: Mar 05, 2020 Time H&P Reviewed: 12:39 Conscious Sedation Pre-Proced Time 12:38 ASA Score 3 For ASA 3 and 4: Consider anesthesia and medical clearance. Also, for patients with a history of failed moderate sedation consider anesthesia. Airway Lungs Heart ASA score ASA 1: a normal healthy patient ASA 2: a patient with a mild systemic disease (mid diabetes, controlled hypertension, obesity ASA 3: a patient with a severe systemic disease that limits activity (angina, COPD, prior Myocardial infarction) ASA 4: a patient with an incapacitating disease that is a constant threat to life (CHF, renal failure) ASA 5: a moribund patient not expected to survive 24 hrs. (ruptured aneurysm) ASA 6: a declared brain- patient whose organs are being harvested. For emergent operations, add the letter E after the classification Mallampati Classification Grade 2 Sedation Plan Analgesia, Amnesia, Plan communicated to team members, Discussed options with patient/fam, Discussed risks with patient/fam The patient is an appropriate candidate to undergo the planned procedure, sedation, and anesthesia. The patient immediately re-assessed prior to indication. JEB MCKEON MD FACP FAC CCDS Mar 05, 2020 12:39
[2020-03-05] MEDS ORDERED: NS IV 1000 ML 1,000 ML ONE (12:51)
[2020-03-05] MEDS ORDERED: EPTIFIBATIDE BOLUS 20 ML IV ONE (13:00)
[2020-03-05] MEDS ORDERED: ATROPINE INJECTION 1 MG/10 ML SYR (ABBOTT) ONE (13:12)
[2020-03-05] MEDS ORDERED: NITRO DRIP 25000 MCG/D5W 250 ML IV ONE (13:14)
[2020-03-05] MEDS ORDERED: CLOPIDOGREL 75 MG (PLAVIX) TABLET ONE (13:16)
[2020-03-05] MEDS ORDERED: ASPIRIN 81 MG CHEW (CHILDREN'S ASA) ONE (13:17)
--- NOTE | 2020-03-05 13:40 | NUR ---
HIGHWAY TECHNICIAN REPORTED PT RECEIVED PLAVIX AND ASPRIN TODAY.
--- NOTE | 2020-03-05 13:41 | CARDIAC CATHETERIZATION ---
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 At that time, she underwent percutaneous intervention to the left circumflex into the left anterior descending arteries. She also has severe right coronary artery disease to which a percutaneous intervention was planned for a later date because of considerable amount of dye and fluoroscopy time used at the time of her coronary interventions four week ago. Today, she comes in for intervention of the right coronary artery. Informed consent was obtained. DESCRIPTION OF PROCEDURE: She was brought to the cardiac catheterization laboratory. Left groin was prepared and draped in the usual sterile fashion. Lidocaine 1% for local anesthesia. Modified Seldinger technique was used to advance a 6-Yi sheath into the left femoral artery. We used a 6-Yi JR4 guide catheter with side holes to engage the right coronary artery. We advanced a ChoICE extra support wire across the lesion in the proximal right coronary artery and the tip was placed in the distal vessel. We carried out balloon angioplasty at the site of 90% stenosis with Emerge 2.5 x 20 mm balloon. This reduced the stenosis to approximately 70%. The balloon was removed and we advanced Alpine Xience 3.0 x 18 mm stent to the lesion and the stent was deployed at 14 atmospheres. Subsequent angiography revealed 0% residual stenosis. The proximal two thirds of the stent was postdilated with Emerge 3.5 x 8 mm balloon and two balloon inflations. The balloon inflations were up to 18 atmospheres. This was done because the proximal portion of the standard segment is that of slightly larger caliber than the distal segment of the stented segment. FINAL RESULTS: Final results are good. There is no significant residual stenosis. The distal artery does have considerable disease that was not intervened on. This includes up to 99% stenosis in the proximal portion of the terminal posterolateral branches. Flow throughout the vessel is normal. CONCLUSIONS: Successful stenting of the proximal right coronary artery with Alpine Xience 3.0 x 18 mm stent with reduction of stenosis from 90% to 0% residual. The very distal right coronary artery has significant disease where the vessel is of a small caliber. These lesions were not intervened on. Job ID: [id number] DocumentID: [id number] Dictated Date: 03/05/2020 13:26:58 Welt Stitcher Date: 03/05/2020 13:40:16 Dictated By: JEB MCKEON MD, MA, FACP, FACC,
[2020-03-05] MEDS ORDERED: PATIENT MAY USE OWN MEDS, ALL PO SCH (13:45)
[2020-03-05] MEDS ORDERED: ASPIRIN 81 MG CHEW (CHILDREN'S ASA) PO NR (13:45)
[2020-03-05] MEDS ORDERED: ACETAMINOPHEN 325 MG TABLET PO PRN (13:45)
[2020-03-05] MEDS: NS IV 1000 ML 1,000 ML IV SCH (14:06)
[2020-03-05 15:58] LABS: PROTHROMBIN TIME PATIENT 13.5 SEC (12.2-14.7)
[2020-03-05] MEDS ORDERED: ATROPINE 1.2 MG/3 ML (0.4 MG/ML) SYR ONE (17:56)
--- NOTE | 2020-03-05 18:30 | NUR ---
THIS NURSE AND DAREK RN AT BEDSIDE. FENTANYL AND ATROPINE AT BEDSIDE. 180 25 MCG OF FENTANYL GIVEN IVP. 180 SHEATH PULLED. PRESSURE APPLIED FOR 25 MIN PER PROTOCOL BY TUNDE ARMANDO RN. 181 25 MCG OF FENTANYL GIVEN IVP. 183 GROIN SITE IS SOFT WITH NO BLEEDING. CLEAN DRESSING APPLIED. PT AND FAMILY IS EDUCATED ON BEDREST AGAIN. PT STATED UNDERSTANDING. THIS RN WASTED 50 MCG OF FENTANYL WITH DAREK LICONA.
--- NOTE | 2020-03-05 23:00 | NUR ---
PATIENT TOOK HER OWN LIPITOR.
[2020-03-06] VITALS (9 sets, daily range): BP systolic 130–169; BP diastolic 70–101
[2020-03-06] MEDS: NS IV 1000 ML 1,000 ML IV SCH (02:18)
[2020-03-06 02:56] LABS: HEMOGLOBIN 12.2 G/DL (11.5-16.0); MEAN PLATELET VOLUME 10.3 FL (7.4-10.4); RED CELL DISTRIBUTION WIDTH 12.9 % (10.0-14.5); WHITE BLOOD COUNT 8.6 10^3/uL (4.3-11.0)
[2020-03-06 03:10] LABS: POTASSIUM 3.3 MMOL/L (3.6-5.0)
[2020-03-06 03:11] LABS: CALCIUM 9.2 MG/DL (8.5-10.1)
[2020-03-06 03:16] LABS: CREATININE SERUM 0.94 MG/DL (0.60-1.30)
--- NOTE | 2020-03-06 08:06 | Progress Note - Cardiology ---
Cardiology SOAP Progress Note Subjective: Sitting up in bed. Daughter at the bedside. No c/o CP, palpitations, dyspnea, syncope or near syncope. She states she feels great. No c/o groin discomfort. Objective: I&O/Vital Signs 03/05/20 03/05/20 03/05/20 03/06/20 22:00 23:00 23:25 00:00 Temp 36.8 Pulse 79 71 70 Resp 15 12 14 B/P (MAP) 166/86 (112) 177/89 (118) 130/101 (111) Pulse Ox 96 96 97 O2 Delivery Nasal Cannula Nasal Cannula Nasal Cannula O2 Flow Rate 1.00 1.00 1.00 03/06/20 03/06/20 03/06/20 03/06/20 00:00 01:00 01:00 02:00 Pulse 73 73 78 Resp 14 13 B/P (MAP) 155/70 (98) 143/82 (102) Pulse Ox 95 96 98 O2 Delivery Nasal Cannula Nasal Cannula Nasal Cannula O2 Flow Rate 1.00 1.00 1.00 03/06/20 03/06/20 03/06/20 03/06/20 03:00 04:00 04:00 05:00 Pulse 69 69 72 Resp 14 13 15 B/P (MAP) 143/81 (101) 169/90 (116) 152/78 (102) Pulse Ox 92 91 91 O2 Delivery Nasal Cannula Room Air Nasal Cannula Nasal Cannula O2 Flow Rate 1.00 1.00 1.00 03/06/20 03/06/20 03/06/20 06:00 07:21 07:45 Temp 36.2 Pulse 77 Resp 18 B/P (MAP) 152/71 (98) Pulse Ox 96 95 O2 Delivery Nasal Cannula Room Air O2 Flow Rate 1.00 03/06/20 00:00 Intake Total 270 ml Output Total 950 ml Balance -680 ml Side: left Groin site without hematoma: Yes Condition: DP/PT pulses palpable, extremity w/d/p Bruising: mild bruising Constitutional: AAO x 3, well-developed, well-nourished Respiratory: No accessory muscle use, No respiratory distress; chest expansion is symmetric, chest is bilaterally symmetric Cardiovascular: regular rate-rhythm; No JVD; S1 and S2 Gastrointestional: No tender; soft, round, audible bowel sounds Extremities: no lower extremity edema bilateral Neurologic/Psychiatric: grossly intact (moves all extremities) Skin: No rash on exposed areas, No ulcerations on exposed areas Results/Procedures: Labs Laboratory Tests 03/05/20 10:21: White Blood Count 7.9, Red Blood Count 4.71, Hemoglobin 13.2, Hematocrit 39, Mean Corpuscular Volume 83, Mean Corpuscular Hemoglobin 28, Mean Corpuscular Hemoglobin Concent 34, Red Cell Distribution Width 12.9, Platelet Count 347, Mean Platelet Volume 10.2, Prothrombin Time 12.7, INR Comment 0.9, Activated Partial Thromboplast Time 30, Sodium Level 142, Potassium Level 3.6, Chloride Level 104, Carbon Dioxide Level 27, Anion Gap 11, Blood Urea Nitrogen 17, Creatinine 1.22, Estimat Glomerular Filtration Rate 42, BUN/Creatinine Ratio 14, Glucose Level 102, Calcium Level 9.9, Corrected Calcium , Total Bilirubin 0.9, Aspartate Amino Transf (AST/SGOT) 20, Alanine Aminotransferase (ALT/SGPT) 15, Alkaline Phosphatase 64, Total Protein 7.8, Albumin 4.7H, Triglycerides Level 128, Cholesterol Level 192, LDL Cholesterol Direct 129, VLDL Cholesterol 26, HDL Cholesterol 50 03/05/20 15:36: Prothrombin Time 13.5, INR Comment 1.0, Activated Partial Thromboplast Time 62H 03/05/20 17:32: Activated Partial Thromboplast Time 32 03/06/20 02:26: White Blood Count 8.6, Red Blood Count 4.35, Hemoglobin 12.2, Hematocrit 36, Mean Corpuscular Volume 84, Mean Corpuscular Hemoglobin 28, Mean Corpuscular Hemoglobin Concent 34, Red Cell Distribution Width 12.9, Platelet Count 317, Mean Platelet Volume 10.3, Sodium Level 141, Potassium Level 3.3L, Chloride Level 106, Carbon Dioxide Level 22, Anion Gap 13, Blood Urea Nitrogen 12, Creatinine 0.94, Estimat Glomerular Filtration Rate 57, BUN/Creatinine Ratio 13, Glucose Level 110H, Calcium Level 9.2 Microbiology 03/05/20 MRSA Screen - Final, Complete MRSA not isolated Laboratory Tests 03/05/20 10:21 03/06/20 02:26 Procedures S/P cardiac cath with successful intervention on 03-05-2020. Please refer to cardiac cath report of the same date for details. A/P: Assessment: CAD. Card cath of 02/27/20: multivessel coronary artery disease. 70 to 80% proximal stenosis of left anterior descending to which successful balloon angioplasty was carried out with reduction of stenosis to less than 30%. First diagonal is a very small caliber vessel and has severe proximal disease, but is not amenable to intervention. Left circumflex artery mainly consists of large obtuse marginal, which had 90% proximal stenosis to which successful stenting was carried out with Alpine Xience 3.0 x 12 mm stent. Cardiac cath of 03-05-2020: Successful stenting of the proximal right coronary artery with Alpine Xience 3.0 x 18 mm stent with reduction of stenosis from 90% to 0% residual. The very distal right coronary artery has significant disease where the vessel is of a small caliber. These lesions were not intervened on. CKD-3 MPI of February 13, 2020 was indicative of a small amt of anterolateral ischemia. LVEF 75%. Normal regional wall motion Hypertension H/o hyperlipidemia. Intolerant to statin (due to liver enz elev when on it) Multiple sclerosis diagnosed in the . Has had symptoms of dizziness and loss of vision in the R eye Echo of February 13, 2020 showed LVEF 60-65%. Grade 1 diastolic dysfunction. LA is mildly to mod dilated. Mod to severe MR. Mod Aortic regurg. RVSP 25 mmHg Fam h/o early CAD (brother in his 60s) Plan: S/P cardiac cath with successful intervention on 03-05-2020 Continue current medication regimen including ASA, Plavix, statin and BB OK to discharge home today Out pt f/u in a week Replace potassium DG STERLING Mar 06, 2020 08:06
[2020-03-06] MEDS: CLOPIDOGREL 75 MG (PLAVIX) TABLET PO SCH ×2 (08:17→08:30)
[2020-03-06] MEDS: amLODIPine 10 MG (NORVASC) TAB PO SCH ×2 (08:17→08:30)
[2020-03-06] MEDS ORDERED: MTP25TSR PO (09:54)
[2020-03-06] MEDS ORDERED: ASPI-999 PO (09:54)
--- NOTE | 2020-03-06 09:55 | Discharge Inst-Cardiology ---
Discharge Inst-Cardiac Discharge Medications New Medications: Aspirin (Aspirin) 81 Mg Tab.chew 81 MG PO DAILY, #30 TAB 5 Refills Metoprolol Succinate (Metoprolol Succinate) 25 Mg Tab.er.24h 25 MG PO DAILY, #30 TAB 5 Refills Continued Medications: Amlodipine Besylate (Amlodipine Besylate) 10 Mg Tablet 10 MG PO DAILY, TAB Atorvastatin Calcium (Lipitor) 40 Mg Tablet 40 MG PO HS, #30 TAB 5 Refills Clopidogrel Bisulfate (Clopidogrel) 75 Mg Tablet 75 MG PO DAILY, #30 TAB 5 Refills New, Converted or Re-Newed RX: Transmitted to Pharmacy Patient Instructions Patient Instructions: PLEASE SCHEDULE FOLLOW UP APPOINTMENT TO SEE DR. MCKEON NEXT WEEK LAB: BMP PLEASE HAVE LAB DONE THE DAY BEFORE YOUR APPOINTMENT TO SEE DG FRAZIER Mar 06, 2020 09:55
[2020-03-06] MEDS ORDERED: KCL 20 MEQ TAB (K-DUR) PO ONE (10:00)
--- NOTE | 2020-03-06 11:30 | NUR ---
PT AND DAUGHTER EDUCATED ON DISCHARGE INSTRUCTIONS. PT AND DAUGHTER STATED UNDERSTANDING. PT TAKEN DOWN VIA WHEELCHAIR WITH BELONGINGS.
--- NOTE | 2020-03-06 12:57 | Progress Note - Cardiology ---
Cardiology SOAP Progress Note Subjective: No cp or palp or syncope or shortness of breath or groin discomfort No focal weakness No n/v/d Objective: I&O/Vital Signs 03/06/20 03/06/20 03/06/20 03/06/20 01:00 01:00 02:00 03:00 Pulse 73 73 78 69 Resp 14 13 14 B/P (MAP) 155/70 (98) 143/82 (102) 143/81 (101) Pulse Ox 96 98 O2 Delivery Nasal Cannula Nasal Cannula Nasal Cannula O2 Flow Rate 1.00 1.00 1.00 03/06/20 03/06/20 03/06/20 03/06/20 04:00 04:00 05:00 06:00 Pulse 69 72 77 Resp 13 15 18 B/P (MAP) 169/90 (116) 152/78 (102) 152/71 (98) Pulse Ox 92 91 91 96 O2 Delivery Room Air Nasal Cannula Nasal Cannula Nasal Cannula O2 Flow Rate 1.00 1.00 1.00 03/06/20 03/06/20 03/06/20 03/06/20 06:40 07:21 07:45 08:00 Temp 36.2 Pulse 72 71 Resp 12 B/P (MAP) 152/77 (102) Pulse Ox 95 95 O2 Delivery Room Air Nasal Cannula O2 Flow Rate 1.00 03/06/20 11:43 Temp 36.2 Pulse 71 Resp 12 B/P (MAP) 152/77 Pulse Ox 95 O2 Delivery Nasal Cannula 03/06/20 00:00 Intake Total 270 ml Output Total 950 ml Balance -680 ml Side: left Groin site without hematoma: Yes Condition: DP/PT pulses palpable, extremity w/d/p Bruising: mild bruising Constitutional: AAO x 3, well-developed, well-nourished Respiratory: No accessory muscle use, No respiratory distress; chest expansion is symmetric, chest is bilaterally symmetric Cardiovascular: regular rate-rhythm; No JVD; S1 and S2 Gastrointestional: No tender; soft, round, audible bowel sounds Extremities: no lower extremity edema bilateral Neurologic/Psychiatric: grossly intact (moves all extremities) Skin: No rash on exposed areas, No ulcerations on exposed areas Results/Procedures: Labs Laboratory Tests 03/05/20 15:36: Prothrombin Time 13.5, INR Comment 1.0, Activated Partial Thromboplast Time 62H 6/9/20 17:32: Activated Partial Thromboplast Time 32 03/06/20 02:26: White Blood Count 8.6, Red Blood Count 4.35, Hemoglobin 12.2, Hematocrit 36, Mean Corpuscular Volume 84, Mean Corpuscular Hemoglobin 28, Mean Corpuscular Hemoglobin Concent 34, Red Cell Distribution Width 12.9, Platelet Count 317, Mean Platelet Volume 10.3, Sodium Level 141, Potassium Level 3.3L, Chloride Level 106, Carbon Dioxide Level 22, Anion Gap 13, Blood Urea Nitrogen 12, Creatinine 0.94, Estimat Glomerular Filtration Rate 57, BUN/Creatinine Ratio 13, Glucose Level 110H, Calcium Level 9.2 Microbiology 03/05/20 MRSA Screen - Final, Complete MRSA not isolated Laboratory Tests 03/05/20 10:21 03/06/20 02:26 A/P: Assessment: CAD. Card cath of 02/27/20: multivessel coronary artery disease. 70 to 80% proximal stenosis of left anterior descending to which successful balloon angioplasty was carried out with reduction of stenosis to less than 30%. First diagonal is a very small caliber vessel and has severe proximal disease, but is not amenable to intervention. Left circumflex artery mainly consists of large obtuse marginal, which had 90% proximal stenosis to which successful stenting was carried out with Alpine Xience 3.0 x 12 mm stent. Cardiac cath of 03-05-2020: Successful stenting of the proximal right coronary artery with Alpine Xience 3.0 x 18 mm stent with reduction of stenosis from 90% to 0% residual. The very distal right coronary artery has significant disease where the vessel is of a small caliber. These lesions were not intervened on. CKD-3 MPI of February 13, 2020 was indicative of a small amt of anterolateral ischemia. LVEF 75%. Normal regional wall motion Hypertension H/o hyperlipidemia. Intolerant to statin (due to liver enz elev when on it) Multiple sclerosis diagnosed in the . Has had symptoms of dizziness and loss of vision in the R eye Echo of February 13, 2020 showed LVEF 60-65%. Grade 1 diastolic dysfunction. LA is mildly to mod dilated. Mod to severe MR. Mod Aortic regurg. RVSP 25 mmHg Fam h/o early CAD (brother in his 60s) Plan: S/P cardiac cath with successful intervention on 03-05-2020 Continue current medication regimen including ASA, Plavix, statin and BB I discussed with her and her daughter in detail the findings of cath and interventions undertaken and further treatment plan OK to discharge home today Out pt f/u in a week Replace JEB Tamayo MD FACP FAC CCDS Mar 06, 2020 12:56
== END 2020-03-06 11:43 | disposition home or self-care (01) ==
LOC: CATH 09:44 → ICU 14:08 → CATH 03-06 11:43
PROVIDERS: ATTEND Internal Medicine Cardiovascular Disease
DX: I25.110 Atherosclerotic heart disease of native coronary artery with unstable angina pectoris (principal); R73.01 Impaired fasting glucose; I12.9 Hypertensive chronic kidney disease with stage 1 through stage 4 chronic kidney disease, or unspecified chronic kidney disease; N18.3 Chronic kidney disease, stage 3 (moderate); E78.5 Hyperlipidemia, unspecified; G35 Multiple sclerosis; Z88.5 Allergy status to narcotic agent; Z79.82 Long term (current) use of aspirin; Z90.710 Acquired absence of both cervix and uterus; Z90.49 Acquired absence of other specified parts of digestive tract
CPT/HCPCS: 36415; 80048; 80053; 80061; 85027; 85347; 85610; 85730; 87081; 93005

== ENCOUNTER → 2020-04-09 | Outpatient (CLI) | payer MEDICARE ==
[~2020-04-09] MED LIST changes: +AMLO10TA7 PO; +ASPI-999 PO; +MTP25TSR PO
[2020-04-09 10:07] LABS: CALCIUM 9.4 MG/DL (8.5-10.1); CREATININE SERUM 1.25 MG/DL (0.60-1.30); POTASSIUM 4.1 MMOL/L (3.6-5.0)
== END ==
LOC: LAB FS 09:34
PROVIDERS: ATTEND Nurse Practitioner Family
DX: E87.6 Hypokalemia (principal)
CPT/HCPCS: 36415; 80048

== ENCOUNTER 2020-05-30 06:36 | Inpatient (IN) | payer MEDICARE ==
[~2020-05-30] VITALS: Ht 160 cm; Wt 73.1 kg
[2020-05-30] MEDS ORDERED: NS IV 1000 ML 1,000 ML IV SCH ×2 (07:15→11:15)
[2020-05-30] MEDS ORDERED: ONDANSETRON 4 MG/2 ML (SDV) Z0FRAN IVP ONE (07:15)
[2020-05-30] MEDS ORDERED: fentaNYL INJECTION 100 MCG/2 ML AMP IVP ONE (07:15)
[2020-05-30] MEDS ORDERED: PANTOPRAZOLE 40 MG (PROTONIX) VIAL IV ONE (07:15)
[2020-05-30 07:17] LABS: HEMATOCRIT 34 % (35-52); HEMOGLOBIN 11.3 G/DL (11.5-16.0); MEAN CORPUSCULAR HEMOGLOBIN 28 PG (25-34); MEAN CORPUSCULAR HGB CONC 33 G/DL (32-36); MEAN CORPUSCULAR VOLUME 83 FL (80-99); MEAN PLATELET VOLUME 9.9 FL (7.4-10.4); PLATELET COUNT 314 10^3/uL (130-400); WHITE BLOOD COUNT 8.6 10^3/uL (4.3-11.0)
[2020-05-30 07:18] LABS: BASOPHILS % (AUTO) 1 % (0-10); EOSINOPHILS # (AUTO) 0.2 10^3/uL (0.0-0.3); EOSINOPHILS % (AUTO) 2 % (0-10); LYMPHOCYTES # (AUTO) 1.2 X 10^3 (1.0-4.0); LYMPHOCYTES % (AUTO) 14 % (12-44); MONOCYTES # (AUTO) 0.7 X 10^3 (0.0-1.0); MONOCYTES % (AUTO) 8 % (0-12); NEUTROPHILS # (AUTO) 6.4 X 10^3 (1.8-7.8); NEUTROPHILS % (AUTO) 75 % (42-75)
--- NOTE | 2020-05-30 07:34 | Diagnostic Imaging Report ---
INDICATION: Chest pain and rectal bleeding. FINDINGS: The heart size, mediastinal configuration, and pulmonary vascularity are within normal limits. There is no pleural effusion, pneumothorax, or pneumonia. The osseous structures are unremarkable. IMPRESSION: No acute cardiopulmonary abnormality. Dictated by: Dictated on workstation # [id number]
[2020-05-30 07:52] LABS: BUN/CREATININE RATIO 18; CARBON DIOXIDE 24 MMOL/L (21-32); CHLORIDE 103 MMOL/L (98-107); CREATININE SERUM 1.39 MG/DL (0.60-1.30); GFR ESTIMATED 36; GLUCOSE 115 MG/DL (70-105); SODIUM 141 MMOL/L (135-145)
[2020-05-30 07:53] LABS: ALANINE AMINOTRANSFERASE 23 U/L (0-55); ALKALINE PHOSPHATASE 112 U/L (40-136); BILIRUBIN,TOTAL 0.6 MG/DL (0.1-1.0); CALCIUM 9.3 MG/DL (8.5-10.1); TOTAL PROTEIN 6.7 GM/DL (6.4-8.2)
[2020-05-30 07:54] LABS: ALBUMIN 3.9 GM/DL (3.2-4.5); LIPASE 788 U/L (8-78)
--- NOTE | 2020-05-30 08:15 | ED General ---
General Chief Complaint: Rect Problems Stated Complaint: RECTAL BLEED Nursing Triage Note: PT REPORTS SHE WOKE UP WITH BLOOD IN HER BED ACCOMPANIED BY SOME CLOTS. ABDOMINAL CRAMPING Nursing Sepsis Screen: No Definite Risk History of Present Illness Date Seen by Provider: May 30, 2020 Time Seen by Provider: 08:10 Initial Comments Patient presents emergency department for evaluation of abdominal pain and rectal bleeding that started this morning. She said it was not associated with a bowel movement and she had bright red blood from her rectum associated with some clots and diffuse lower abdominal cramping. She denies any fevers chills nausea vomiting. She thinks it may be related to the colchicine she started one week ago for her gout. She is on Plavix and aspirin for prior coronary disease and stent placement. She says that she had a colonoscopy approximately 10 years ago. After he did a rectal exam she started having sharp stabbing chest pain that lasted for about 5 minutes and then went away. She is in no obvious distress with normal vital signs. Allergies and Home Medications Allergies Coded Allergies: morphine (Verified Allergy, Mild, 06/30/19) Home Medications Amlodipine Besylate 10 Mg Tablet, 10 MG PO DAILY, (Reported) Aspirin 81 Mg Tab.chew, 81 MG PO DAILY Prescribed by: DG STERLING on 03/06/20 0954 Atorvastatin Calcium 40 Mg Tablet, 40 MG PO HS Prescribed by: DG STERLING on 02/28/20 0843 Clopidogrel Bisulfate 75 Mg Tablet, 75 MG PO DAILY Prescribed by: DG STERLING on 02/28/20 0843 Metoprolol Succinate 25 Mg Tab.er.24h, 25 MG PO DAILY Prescribed by: DG STERLING on 03/06/20 0954 Patient Home Medication List Home Medication List Reviewed: Yes Review of Systems Review of Systems Constitutional: no symptoms reported EENTM: no symptoms reported Respiratory: no symptoms reported Cardiovascular: chest pain Gastrointestinal: abdominal pain Genitourinary: no symptoms reported Musculoskeletal: no symptoms reported Skin: no symptoms reported Psychiatric/Neurological: No Symptoms Reported All Other Systems Reviewed Negative Unless Noted: Yes Past Bflkmki-Xjlaod-Btuowu Hx Patient Social History Alcohol Use: Denies Use Recreational Drug Use: No Smoking Status: Never a Smoker 2nd Hand Smoke Exposure: No Recent Foreign Travel: No Contact w/Someone Who Travel: No Recent Infectious Disease Expo: No Recent Hopitalizations: Yes (stents) Physical Abuse: No Sexual Abuse: No Mistreated: No Fear: No Immunizations Up To Date Tetanus Booster (TDap): Unknown Date of Influenza Vaccine: May 29, 2019 Seasonal Allergies Seasonal Allergies: No Past Medical History Surgeries: Yes Appendectomy, Gallbladder, Hysterectomy, Tonsillectomy Respiratory: No Cardiac: Yes Angina, Hypertension Neurological: Yes TIA [employer] S[employer]CING History: Hysterectomy Genitourinary: No Gastrointestinal: Yes Gastroesophageal Reflux, Diverticulosis Musculoskeletal: No Endocrine: No HEENT: No Cancer: No Psychosocial: No Integumentary: No Blood Disorders: No Physical Exam Vital Signs Vital Signs - First Documented 05/30/20 06:49 Temp 36.5 Pulse 82 Resp 16 B/P (MAP) 148/64 (92) Pulse Ox 97 Capillary Refill : Less Than 3 Seconds Height, Weight, BMI Height: '" Weight: lbs. oz. kg; 29.00 BMI Method: General Appearance: No Apparent Distress, WD/WN HEENT: PERRL/EOMI Neck: Supple Respiratory: No Respiratory Distress Cardiovascular: Regular Rate, Rhythm Gastrointestinal: Soft; No Guarding, No Rebound; Tenderness Rectal: Heme Positive Stool (darker red-appearing stool) Back: Normal Inspection Neurologic/Psychiatric: Alert, Oriented x3 Skin: Warm/Dry Progress/Results/Core Measures Suspected Sepsis Recent Fever Within 48 Hours: No Infection Criteria Present: None New/Unexplained Altered Menta: No Sepsis Screen: No Definite Risk SIRS Temperature: Pulse: 82 Respiratory Rate: 16 Laboratory Tests 05/30/20 07:00: White Blood Count 8.6 Blood Pressure 148 /64 Mean: 92 Laboratory Tests 05/30/20 07:00: Creatinine 1.39H, INR Comment 1.0, Platelet Count 314, Total Bilirubin 0.6 Results/Orders Lab Results Laboratory Tests Test 05/30/20 07:00 Range/Units White Blood Count 8.6 4.3-11.0 10^3/uL Red Blood Count 4.09 L 4.35-5.85 10^6/uL Hemoglobin 11.3 L 11.5-16.0 G/DL Hematocrit 34 L 35-52 % Mean Corpuscular Volume 83 80-99 FL Mean Corpuscular Hemoglobin 28 25-34 PG Mean Corpuscular Hemoglobin Concent 33 32-36 G/DL Red Cell Distribution Width 12.4 10.0-14.5 % Platelet Count 314 130-400 10^3/uL Mean Platelet Volume 9.9 7.4-10.4 FL Neutrophils (%) (Auto) 75 42-75 % Lymphocytes (%) (Auto) 14 12-44 % Monocytes (%) (Auto) 8 0-12 % Eosinophils (%) (Auto) 2 0-10 % Basophils (%) (Auto) 1 0-10 % Neutrophils # (Auto) 6.4 1.8-7.8 X 10^3 Lymphocytes # (Auto) 1.2 1.0-4.0 X 10^3 Monocytes # (Auto) 0.7 0.0-1.0 X 10^3 Eosinophils # (Auto) 0.2 0.0-0.3 10^3/uL Basophils # (Auto) 0.0 0.0-0.1 10^3/uL Prothrombin Time 13.0 12.2-14.7 SEC INR Comment 1.0 0.8-1.4 Activated Partial Thromboplast Time 30 24-35 SEC Sodium Level 141 135-145 MMOL/L Potassium Level 4.0 3.6-5.0 MMOL/L Chloride Level 103 98-107 MMOL/L Carbon Dioxide Level 24 21-32 MMOL/L Anion Gap 14 5-14 MMOL/L Blood Urea Nitrogen 25 H 7-18 MG/DL Creatinine 1.39 H 0.60-1.30 MG/DL Estimat Glomerular Filtration Rate 36 BUN/Creatinine Ratio 18 Glucose Level 115 H 70-105 MG/DL Calcium Level 9.3 8.5-10.1 MG/DL Corrected Calcium 9.4 8.5-10.1 MG/DL Total Bilirubin 0.6 0.1-1.0 MG/DL Aspartate Amino Transf (AST/SGOT) 18 5-34 U/L Alanine Aminotransferase (ALT/SGPT) 23 0-55 U/L Alkaline Phosphatase 112 40-136 U/L Troponin I < 0.30 <0.30 NG/ML Pro-B-Type Natriuretic Peptide 1115.0 H <75.0 PG/ML Total Protein 6.7 6.4-8.2 GM/DL Albumin 3.9 3.2-4.5 GM/DL Lipase 788 H 8-78 U/L My Orders Orders - NED COLLINS DO Cbc With Automated Diff (05/30/20 07:08) Comprehensive Metabolic Panel (05/30/20 07:08) Lipase (05/30/20 07:08) Ua Culture If Indicated (05/30/20 07:08) Troponin I Fs (05/30/20 07:08) Chest 1 View Ap/Pa Only (05/30/20 07:08) Ekg Tracing (05/30/20 07:08) Probnp Fs (05/30/20 07:08) Partial Thromboplastin Time (05/30/20 07:08) Protime With Inr (05/30/20 07:08) Iv/Invasive Line Insertion .IV start (05/30/20 07:08) Ondansetron Injection (Zofran Injectio (05/30/20 07:15) Fentanyl Injection (Sublimaze Injection (05/30/20 07:15) Pantoprazole Injection (Protonix Injecti (05/30/20 07:15) Ns Iv 1000 Ml (Sodium Chloride 0.9%) (05/30/20 07:15) Ct Abdomen/Pelvis Wo (05/30/20 07:08) Medications Given in ED Current Medications Medications Dose Ordered Sig/Negrito Route Start Time Stop Time Status Last Admin Dose Admin Fentanyl Citrate 50 mcg ONCE ONCE IVP 05/30/20 07:15 05/30/20 07:16 DC 05/30/20 07:15 50 MCG Ondansetron HCl 4 mg ONCE ONCE IVP 05/30/20 07:15 05/30/20 07:16 DC 05/30/20 07:14 4 MG Pantoprazole 80 mg ONCE ONCE IV 05/30/20 07:15 05/30/20 07:16 DC 05/30/20 07:16 80 MG Vital Signs/I&O 05/30/20 06:49 Temp 36.5 Pulse 82 Resp 16 B/P (MAP) 148/64 (92) Pulse Ox 97 Capillary Refill : Less Than 3 Seconds Blood Pressure Mean: 92 Point of Care Testing Fecal Occult: Positive Progress Note : Progress Note Patient with signs and symptoms of a lower GI bleed. No obvious external or internal hemorrhoids. I will check labs imaging treat her symptoms and reassess. Patient has stable hemoglobin however her renal function is slightly off her baseline and she has an elevated lipase but no upper abdominal pain rather her pain is lower abdominal. Patient has normal vital signs and is not terribly symptomatic. I discussed inpatient versus outpatient treatment and I told her given I do not have a definitive source and I think this could be a diverticular bleed I recommended inpatient evaluation to at least try and her hemoglobin and have a consult with the general surgeon to see if further workup is warranted. Patient is agreeable with plan. Patient will be transferred to [facility] in stable condition with Dr. Muniz as the accepting physician. Departure Impression Primary Impression: GI bleed Qualified Codes: K92.2 - Gastrointestinal hemorrhage, unspecified Additional Impressions: Diverticulosis Renal insufficiency Elevated lipase Anemia Disposition: ADMITTED INPATIENT Condition: Unchanged Transfer Transfer Reason: Exceeds level of care Transfer Facility: [facility] Method of Transfer: EMS Departure-Patient Inst. Referrals: [facility] (PCP) Primary Care Physician NATY CARMEN APRN (Family) Primary Care Physician NED COLLINS DO May 30, 2020 08:15
--- NOTE | 2020-05-30 08:29 | Diagnostic Imaging Report ---
PROCEDURE: CT abdomen and pelvis without contrast. TECHNIQUE: Multiple contiguous axial images were obtained through the abdomen and pelvis without the use of intravenous contrast. Auto Exposure Controls were utilized during the CT exam to meet ALARA standards for radiation dose reduction. INDICATION: Hematochezia. Diffuse lower abdominal pain. COMPARISON: 08/10/2019 FINDINGS: Included portions of the lung bases show chronic changes, but no acute abnormalities. There is also cardiomegaly and moderate calcified coronary atherosclerosis. CT ABDOMEN: Small bowel loops are nondistended. There is colonic diverticulosis, but no CT evidence of acute diverticulitis. Normal appendix cannot be adequately identified, but there is no pericecal inflammation. Kidneys, adrenal glands, spleen, pancreas, and liver have a normal noncontrast CT appearance. Bulky calcifications are noted anterior to the IVC at the level of the duodenal sweep and posterior to the uncinate of the pancreas. Findings could be on the basis of old calcified lymph nodes. These are stable compared to prior exam. There is no loculated fluid collection, free fluid, nor free air within the abdomen. No abnormal mesenteric or retroperitoneal adenopathy is seen. Osseous structures show no acute abnormalities. CT PELVIS: Urinary bladder is unopacified. No calculi are seen within the urinary bladder. There is no loculated fluid collection, free fluid, nor free air within the pelvis. No abnormal lymph nodes are seen. Osseous structures show no acute abnormalities. IMPRESSION: 1. No acute abnormalities are seen within the abdomen or pelvis. 2. Colonic diverticulosis, but no CT evidence of acute diverticulitis. Dictated by: Dictated on workstation # [id number]
[2020-05-30 10:45] VITALS: BP 181/64
[2020-05-30] MEDS ORDERED: CATHETER FLUSH 10 ML SYR IV PRN (10:45)
[2020-05-30] MEDS ORDERED: NS IV 1000 ML 1,000 ML ONE (11:13)
[2020-05-30 11:31] LABS: BASOPHILS % (AUTO) 0 % (0-10); EOSINOPHILS # (AUTO) 0.1 10^3/uL (0.0-0.3); EOSINOPHILS % (AUTO) 1 % (0-10); HEMATOCRIT 33 % (35-52); HEMOGLOBIN 10.8 G/DL (11.5-16.0); LYMPHOCYTES # (AUTO) 1.2 X 10^3 (1.0-4.0); LYMPHOCYTES % (AUTO) 16 % (12-44); MEAN CORPUSCULAR HEMOGLOBIN 28 PG (25-34); MEAN CORPUSCULAR HGB CONC 33 G/DL (32-36); MEAN CORPUSCULAR VOLUME 84 FL (80-99); MEAN PLATELET VOLUME 9.9 FL (7.4-10.4); MONOCYTES # (AUTO) 0.5 X 10^3 (0.0-1.0); MONOCYTES % (AUTO) 6 % (0-12); NEUTROPHILS # (AUTO) 5.9 X 10^3 (1.8-7.8); NEUTROPHILS % (AUTO) 77 % (42-75); PLATELET COUNT 284 10^3/uL (130-400); WHITE BLOOD COUNT 7.7 10^3/uL (4.3-11.0)
[2020-05-30] MEDS: NS IV 1000 ML 1,000 ML IV SCH ×2 (11:38→23:29)
[2020-05-30 12:00] VITALS: BP 170/75
--- NOTE | 2020-05-30 14:07 | Consultation - Surgery ---
CELIA AGUILAR MED STUDENT 05/30/20 1407: History of Present Illness History of Present Illness Patient Consulted On(harpal/time) 05/30/20 14:02 Date Seen by Provider: May 30, 2020 History of Present Illness Surgery consult re: bright red blood per rectum 84 yo F presented to the ED with a chief complaint of bright red blood per rectum. pt stated that she first noticed at 0500 when she went to the bathroom. pt states that she has LLQ pain. pt described the pain as sharp earlier in the day, pt states that it is now more dull. pt rates the pain at 1.5/10. pt stated that she has been feeling tired lately, but only for the past few days. pt denies any melena. pt stated that she also has chest pain, she described it as dull, achy and that it comes and goes. Allergies and Home Medications Allergies Coded Allergies: morphine (Verified Allergy, Mild, 06/30/19) Home Medications Aspirin 81 Mg Tab.chew, 81 MG PO DAILY, (Reported) Atorvastatin Calcium 40 Mg Tablet, 40 MG PO HS, (Reported) Clopidogrel Bisulfate 75 Mg Tablet, 75 MG PO DAILY, (Reported) Metoprolol Succinate 50 Mg Tab.er.24h, 50 MG PO DAILY, (Reported) Past Uceeztp-Lydsdw-Krfdes Hx Patient Social History Alcohol Use: Denies Use Recreational Drug Use: No Smoking Status: Never a Smoker 2nd Hand Smoke Exposure: No Recent Foreign Travel: No Contact w/Someone Who Travel: No Recent Infectious Disease Expo: No Recent Hopitalizations: Yes (stents) Immunizations Up To Date Tetanus Booster (TDap): Unknown Date of Influenza Vaccine: May 29, 2019 Seasonal Allergies Seasonal Allergies: No Surgeries History of Surgeries: Yes Surgeries: Adenoidectomy, Appendectomy, Gallbladder, Hysterectomy, Tonsillectomy Respiratory History of Respiratory Disorde: No Cardiovascular History of Cardiac Disorders: Yes Cardiac Disorders: Angina, Hypertension Neurological History of Neurological Disord: Yes Neurological Disorders: Multiple Sclerosis, TIA 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 Genitourinary History of Genitourinary Disor: No Gastrointestinal History of Gastrointestinal Di: Yes Cancer History of Cancer: No Family Medical History Significant Family History: Cancer, Other Conditions/Hx (mulitple sclerosis ) Review of Systems-General Constitutional: No chills, No fever; malaise Respiratory: No cough, No short of breath Cardiovascular: chest pain; No palpitations Gastrointestinal: LLQ, abdominal pain (LLQ); No constipation, No diarrhea, No hematemesis, No melena; nausea; No vomiting; other (hematochezia ) Musculoskeletal: joint pain; No neck pain Physical Exam-General Problems Physical Exam Vital Signs Vital Signs - First Documented 05/30/20 05/30/20 06:49 09:21 Temp 36.5 Pulse 82 Resp 16 B/P (MAP) 148/64 (92) Pulse Ox 97 O2 Delivery Room Air Capillary Refill : Less Than 3 Seconds General Appearance: no apparent distress HEENT: No scleral icterus (R), No scleral icterus (L) Neck: non-tender; No lymphadenopathy (R), No lymphadenopathy (L) Respiratory: lungs clear, normal breath sounds, no respiratory distress, no accessory muscle use Cardiovascular: normal peripheral pulses, regular rate, rhythm, no murmur Peripheral Pulses: 2+ Carotid (R), 2+ Carotid (L), 2+ Dorsalis Pedis (R), 2+ Left Dors-Pedis (L), 2+ Radial Pulses (R), 2+ Radial Pulses (L) Gastrointestinal: normal bowel sounds, soft, tenderness (LLQ) Rectal: blood streaked stool Skin: normal color Lymphatic: no adenopathy Data Review Labs Laboratory Tests 05/30/20 07:00: White Blood Count 8.6, Red Blood Count 4.09L, Hemoglobin 11.3L, Hematocrit 34L, Mean Corpuscular Volume 83, Mean Corpuscular Hemoglobin 28, Mean Corpuscular Hemoglobin Concent 33, Red Cell Distribution Width 12.4, Platelet Count 314, Mean Platelet Volume 9.9, Neutrophils (%) (Auto) 75, Lymphocytes (%) (Auto) 14, Monocytes (%) (Auto) 8, Eosinophils (%) (Auto) 2, Basophils (%) (Auto) 1, Neutrophils # (Auto) 6.4, Lymphocytes # (Auto) 1.2, Monocytes # (Auto) 0.7, Eosinophils # (Auto) 0.2, Basophils # (Auto) 0.0, Prothrombin Time 13.0, INR Comment 1.0, Activated Partial Thromboplast Time 30, Sodium Level 141, Potassium Level 4.0, Chloride Level 103, Carbon Dioxide Level 24, Anion Gap 14, Blood Urea Nitrogen 25H, Creatinine 1.39H, Estimat Glomerular Filtration Rate 36, BUN/Creatinine Ratio 18, Glucose Level 115H, Calcium Level 9.3, Corrected Calcium 9.4, Total Bilirubin 0.6, Aspartate Amino Transf (AST/SGOT) 18, Alanine Aminotransferase (ALT/SGPT) 23, Alkaline Phosphatase 112, Troponin I < 0.30, Pro-B-Type Natriuretic Peptide 1115.0H, Total Protein 6.7, Albumin 3.9, Lipase 788H 05/30/20 11:16: White Blood Count 7.7, Red Blood Count 3.90L, Hemoglobin 10.8L, Hematocrit 33L, Mean Corpuscular Volume 84, Mean Corpuscular Hemoglobin 28, Mean Corpuscular Hemoglobin Concent 33, Red Cell Distribution Width 12.5, Platelet Count 284, Mean Platelet Volume 9.9, Neutrophils (%) (Auto) 77H, Lymphocytes (%) (Auto) 16, Monocytes (%) (Auto) 6, Eosinophils (%) (Auto) 1, Basophils (%) (Auto) 0, Neutrophils # (Auto) 5.9, Lymphocytes # (Auto) 1.2, Monocytes # (Auto) 0.5, Eosinophils # (Auto) 0.1, Basophils # (Auto) 0.0 Assessment/Plan Assessment/Plan Assessment/Plan Assessment Lower GI bleed Plan prep for possible colonoscopy Clinical Quality Measures DVT/VTE Risk/Contraindication: Risk Factor Score Per Nursin RFS Level Per Nursing on Admit: 2=Moderate AREN SOLER DO 05/30/20 1817: History of Present Illness History of Present Illness Time Seen by Provider: 16:11 History of Present Illness HPI per ED: Patient presents emergency department for evaluation of abdominal pain and rectal bleeding that started this morning. She said it was not associated with a bowel movement and she had bright red blood from her rectum associated with some clots and diffuse lower abdominal cramping. She denies any fevers chills nausea vomiting. She thinks it may be related to the colchicine she started one week ago for her gout. She is on Plavix and aspirin for prior coronary disease and stent placement. She says that she had a colonoscopy approximately 10 years ago. After he did a rectal exam she started having sharp stabbing chest pain that lasted for about 5 minutes and then went away. She is in no obvious distress with normal vital signs. When I spoke to the pt she states she has never had rectal bleeding before, thinks her last colonoscopy was more than 10yrs ago. Allergies and Home Medications Allergies Coded Allergies: morphine (Verified Allergy, Mild, 06/30/19) Home Medications Aspirin 81 Mg Tab.chew, 81 MG PO DAILY, (Reported) Atorvastatin Calcium 40 Mg Tablet, 40 MG PO HS, (Reported) Clopidogrel Bisulfate 75 Mg Tablet, 75 MG PO DAILY, (Reported) Metoprolol Succinate 50 Mg Tab.er.24h, 50 MG PO DAILY, (Reported) Patient Home Medication List Home Medication List Reviewed: Yes Past Orfopge-Xfirzv-Giyslq Hx Patient Social History Alcohol Use: Denies Use Recreational Drug Use: No Smoking Status: Never a Smoker Surgeries History of Surgeries: Yes Respiratory History of Respiratory Disorde: No Cardiovascular History of Cardiac Disorders: Yes Musculoskeletal Musculoskeletal Disorders: Arthritis Endocrine History of Endocrine Disorders: No Family Medical History Significant Family History: Other Conditions/Hx (mulitple sclerosis ) Physical Exam-General Problems Physical Exam General Appearance: WD/WN, no apparent distress Eyes: Bilateral Eye PERRL, Bilateral Eye EOMI Respiratory: lungs clear, normal breath sounds, no respiratory distress Cardiovascular: regular rate, rhythm, no murmur Gastrointestinal: soft, no organomegaly, tenderness (LLQ) Back: no CVA tenderness, no vertebral tenderness Extremities: no pedal edema, no calf tenderness Neurologic/Psychiatric: pattern chart writer II-XII nml as tested, no motor/sensory deficits, alert, normal mood/affect, oriented x 3 Skin: normal color, warm/dry Lymphatic: no adenopathy (neck, axilla or groin) Assessment/Plan Assessment/Plan Assessment/Plan Rectal bleed Anemia Chest pain Plan is to start prep today and do colonoscopy tomorrow. Discussed procedure with pt; risks and complications not limited to pain, bleeding, infection and possible intestinal perforation. All questions answered to her satisfaction. Prep written for, consent ordered, npo after midnight. Supervisory-Addendum Brief Verification & Attestation Participated in pt care: history, MDM, physical Personally performed: exam, history, MDM Care discussed with: Medical Student Procedures: n/a Verification and Attestation of Medical Student E/M Service A medical student performed and documented this service. I then reviewed and verified all information documented by the medical student and made modific ations to such information, when appropriate. I personally performed a physical exam, medical decision making and then discussed any differences between the notes and made revisions as necessary to create one note. Aren Soler , 05/30/20 , 18:44 CELIA AGUILAR MED STUDENT May 30, 2020 14:07 AREN SOLER DO May 30, 2020 18:17
[2020-05-30] MEDS ORDERED: ASPI-999 PO (15:03)
[2020-05-30] MEDS ORDERED: CLOP75TA28 PO (15:03)
[2020-05-30] MEDS ORDERED: ATOR40TA70 PO (15:03)
[2020-05-30] MEDS ORDERED: METO50TA7 PO (15:03)
--- NOTE | 2020-05-30 15:04 | NUR ---
SPOKE WITH THE PT (SHE HAD HER MEDS BOTTLES WITH HER), WENT THRU THE EXT MED HISTORY AND CALLED [facility] TO COMPLETE THE MED REC PT HAS A BOTTLE OF AMLODIPINE 10MG WITH HER HOWEVER PT SAYS SHE IS NO LONGER TAKING. SHE CALLED [facility] IN [place] TO GET IT REFILLED AND WAS TOLD THE MEDICATION HAD BEEN "DROPPED". PT ASSUMED SHE WAS TO QUIT TAKING AND HASNT ANY OF THAT MED SINCE IN ABOUT A WEEK. I FOLLOWED UP WITH [facility] TO CONFIRM THIS AND WAS TOLD ON 03-18-2020 DG STERLING HAS DISCONTINUED THE MED. COLCRYS 0.6MG- PT ONLY TOOK THIS SHORT TERM AND SHE IS DONE WITH THE THERAPY ALL OTHER MEDICATIONS SHE TAKES PRESCRIBED AND ARE LISTED ON THE EXT MED HISTORY OTC MEDS: ASPIRIN 81MG
[2020-05-30 16:00] VITALS: BP 178/69
[2020-05-30] MEDS ORDERED: PANTOPRAZOLE 40 MG (PROTONIX) VIAL IV NR (16:45)
[2020-05-30] MEDS ORDERED: BISACODYL 5 MG (DULCOLAX) TABLET PO SCH ×2 (17:00→20:00)
--- NOTE | 2020-05-30 17:05 | Consultation-Cardiology ---
HPI-Cardiology Cardiology Consultation: Date of Consultation 05/30/20 Date of Admission Attending Physician Susan Muniz MD Admitting Physician [place] Consulting Physician Tre RICHARDS MD HPI: Time Seen by a Provider: 15:00 Chief Complaint: mild chest discomfort, lower GI bleeding This is a 84-year-old lady who follows with Dr. Rand. She presented with lower GI bleeding. She had a stent placed in February by Dr. Rand and was started on dual antiplatelet therapy. She is also complaining of left lower quadrant abdominal pain. Some mild chest tightness. She denies active smoking. Pertinent family history is negative. Review of Systems-Cardiology Review of Systems Constitutional: As described under HPI; No As described under HPI, No no symptoms reported, No chills, No fever, No lightheadedness Eyes: No As described under HPI, No no symptoms reported, No blindness, No blurred vision, No contact lenses, No drainage, No decreased acuity, No foreign body sensation, No pain, No vision change Ears/Nose/Throat: No As described under HPI, No no symptoms reported, No chronic hearing loss, No ear discharge, No ear pain, No nasal drainage, No ulcerations Respiratory: No no symptoms reported; As described under HPI; No As described under HPI, No cough, No orthopnea, No shortness of breath, No SOB with excertion Cardiovascular: No no symptoms reported; As described under HPI; No As described under HPI; chest pain; No edema, No irregular heart rate, No lightheadedness, No palpitations Gastrointestinal: No no symptoms reported, No As described under HPI, No abdomen distended, No abdominal pain, No blood streaked bowels, No constipation, No diarrhea, No nausea; rectal bleeding; No vomiting, No stool coloration changes Genitourinary: No As described under HPI, No burning, No dysuria, No discharge, No frequency, No flank pain, No hematuria, No urgency : Yes : No Skin: No rash, No skin related problems, No ulcerations Psychiatric/Neurological: No anxiety, No depression, No seizure, No focal weakness, No syncope Hematologic: No bleeding abnormalities All Other Systems Reviewed Negative Unless Noted: Yes NCB-Ohnwuu-Glqfiu Hx Patient Social History Alcohol Use: Denies Use Recreational Drug Use: No Smoking Status: Never a Smoker 2nd Hand Smoke Exposure: No Recent Foreign Travel: No Recent Infectious Disease Expo: No Hospitalization with Isolation: Denies Immunizations Up To Date Tetanus Booster (TDap): Unknown Date of Influenza Vaccine: May 29, 2019 Past Medical History PMH As described under Assessment. Allergies and Home Medications Allergies Coded Allergies: morphine (Verified Allergy, Mild, 06/30/19) Home Medications Atorvastatin Calcium 40 Mg Tablet, 40 MG PO HS, (Reported) Clopidogrel Bisulfate 75 Mg Tablet, 75 MG PO DAILY, (Reported) Metoprolol Succinate 50 Mg Tab.er.24h, 50 MG PO DAILY, (Reported) Pantoprazole Sodium 40 Mg Tablet.dr, 40 MG PO DAILY Prescribed by: GEORGE RITCHIE on 06/01/20 1218 Patient Home Medication List Home Medication List Reviewed: Yes Physical Exam-Cardiology Physical Exam Vital Signs/I&O Capillary Refill : Less Than 3 Seconds Constitutional: appears stated age, AAO x 3; No apparent distress; well- developed, well-nourished HEENT: PERRL; No discharge; hearing is well preserved, oral hygience is good; No ulceration, No xanthelasmas are seen Neck: No carotid bruit; carotid pulses are 2 + bilaterally Respiratory: chest is bilaterally symmetric, lungs clear to auscultation Cardiovascular: regular rate-rhythm, S1 and S2 Gastrointestinal: soft, audible bowel sounds; No spleenomegaly Rectal: deferred Extremities: normal range of motion, non-tender, normal inspection; No clubbing, No cyanosis; no lower extremity edema bilateral; No significant edema Neurologic/Psychiatric: no motor/sensory deficits, alert, normal mood/affect, oriented x 3, power is 5/5 both on sides Skin: normal color, warm/dry; No rash, No ulcerations Lymphatic: no adenopathy Data Review Labs ECG Impression ECG Initial ECG Rhythm: Normal Sinus, PVC Initial ECG Impression: Nonspecific Changes A/P-Cardiology Assessment/Admission Diagnosis lower GI bleeding, anemia, History of CAD/PCI, Acute on chronic kidney injury, Possible mild congestive heart failure Plan lower GI bleeding, anemia, when I saw the patient, GI bleeding has resolved. However etiology unclear. Patient is on dual antiplatelet therapy including aspirin and Plavix. Discontinue aspirin and continue Plavix for now since the patient has had 2 drug-eluting stents in [place] [address] Rand. however if the patient has significant drop in hemoglobin and/or repeat GI bleeding, unfortunately we will have to stop Plavix as well. I did discuss with the patient that at that point in time there is risk of stent thrombosis which could result in acute KS and even . History of CAD/PCI, for now continue Plavix. DC aspirin. Acute on chronic kidney injury, defer to the primary team. Possible mild congestive heart failure, elevated BNP. Request an echocardiogram. Thank you for your consultation. Please call me if you have any questions. Chelle Richards MD, FACP, FACC, FSCAI, FHRS, CCDS Interventional Cardiology Cardiac Electrophysiology Vascular Medicine and Endovascular Interventions Clinical Quality Measures DVT/VTE Risk/Contraindication: Risk Factor Score Per Nursin RFS Level Per Nursing on Admit: 2=Moderate Tre RICHARDS MD May 30, 2020 17:05
[2020-05-30] MEDS ORDERED: polyethylene glycoL Bowel Prep(MIRALAX) 238 GM PO SCH (18:00)
--- NOTE | 2020-05-30 19:34 | History & Physical ---
HPI History of Present Illness: 84 yo F here for bright red blood per rectum. Patient states that she woke up at 5 AM covered in blood. She states that this has never happened to her previously. States that she just had a stent place in February and was started on blood thinners. She is having LLQ abdominal pain and has been since 5 AM. She is also now feeling some tightening in her chest and states that it is in the same place it was when she had her stent placed. Source: patient Exam Limitations: no limitations Date seen by provider: May 30, 2020 Time Seen by Provider: 11:00 Attending Physician Jacqueline Muniz MD [place] [place] Consult Date of Admission May 30, 2020 at 10:30 Home Medications Home Medications Reviewed patient Home Medication Reconciliation performed by pharmacy medication reconciliations emanations analysis technician and/or nursing. Patients Allergies have been reviewed. Allergies Coded Allergies: morphine (Verified Allergy, Mild, 06/30/19) YKJ-Tnqrca-Yglbpn Hx Patient Social History Living Status: Lives at home Alcohol Use: Denies Use Recreational Drug Use: No Smoking Status: Never a Smoker 2nd Hand Smoke Exposure: No Recent Foreign Travel: No Contact w/other who traveled: No Recent Hopitalizations: Yes (stents) Recent Infectious Disease Expo: No Immunizations Up To Date Tetanus Booster (TDap): Unknown Date of Influenza Vaccine: May 29, 2019 Past Medical History CAD with stents HTN CKD Family Medical History Significant Family History: Other Conditions/Hx (mulitple sclerosis ) Review of Systems ([facility]) Constitutional: No chills, No fever; malaise EENTM: no symptoms reported; No mouth pain, No nose pain, No throat pain Respiratory: No cough; dyspnea on exertion, short of breath Cardiovascular: chest pain; No edema, No palpitations Gastrointestinal: LLQ, abdominal pain, diarrhea Genitourinary: no symptoms reported; No dysuria, No frequency, No hematuria : No Musculoskeletal: no symptoms reported; No back pain, No joint pain, No muscle pain Skin: no symptoms reported; No lesions, No rash Psychiatric/Neurological: No Symptoms Reported; Denies Headache, Denies Numbness Reviewed Test Results Reviewed Test Results Lab Laboratory Tests Test 05/30/20 07:00 05/30/20 11:16 05/30/20 15:07 Range/Units White Blood Count 8.6 7.7 4.3-11.0 10^3/uL Red Blood Count 4.09 L 3.90 L 4.35-5.85 10^6/uL Hemoglobin 11.3 L 10.8 L 11.5-16.0 G/DL Hematocrit 34 L 33 L 35-52 % Mean Corpuscular Volume 83 84 80-99 FL Mean Corpuscular Hemoglobin 28 28 25-34 PG Mean Corpuscular Hemoglobin Concent 33 33 32-36 G/DL Red Cell Distribution Width 12.4 12.5 10.0-14.5 % Platelet Count 314 284 130-400 10^3/uL Mean Platelet Volume 9.9 9.9 7.4-10.4 FL Neutrophils (%) (Auto) 75 77 H 42-75 % Lymphocytes (%) (Auto) 14 16 12-44 % Monocytes (%) (Auto) 8 6 0-12 % Eosinophils (%) (Auto) 2 1 0-10 % Basophils (%) (Auto) 1 0 0-10 % Neutrophils # (Auto) 6.4 5.9 1.8-7.8 X 10^3 Lymphocytes # (Auto) 1.2 1.2 1.0-4.0 X 10^3 Monocytes # (Auto) 0.7 0.5 0.0-1.0 X 10^3 Eosinophils # (Auto) 0.2 0.1 0.0-0.3 10^3/uL Basophils # (Auto) 0.0 0.0 0.0-0.1 10^3/uL Prothrombin Time 13.0 12.2-14.7 SEC INR Comment 1.0 0.8-1.4 Activated Partial Thromboplast Time 30 24-35 SEC Sodium Level 141 135-145 MMOL/L Potassium Level 4.0 3.6-5.0 MMOL/L Chloride Level 103 98-107 MMOL/L Carbon Dioxide Level 24 21-32 MMOL/L Anion Gap 14 5-14 MMOL/L Blood Urea Nitrogen 25 H 7-18 MG/DL Creatinine 1.39 H 0.60-1.30 MG/DL Estimat Glomerular Filtration Rate 36 BUN/Creatinine Ratio 18 Glucose Level 115 H 70-105 MG/DL Calcium Level 9.3 8.5-10.1 MG/DL Corrected Calcium 9.4 8.5-10.1 MG/DL Total Bilirubin 0.6 0.1-1.0 MG/DL Aspartate Amino Transf (AST/SGOT) 18 5-34 U/L Alanine Aminotransferase (ALT/SGPT) 23 0-55 U/L Alkaline Phosphatase 112 40-136 U/L Troponin I < 0.30 < 0.028 <0.028 NG/ML Pro-B-Type Natriuretic Peptide 1115.0 H <75.0 PG/ML Total Protein 6.7 6.4-8.2 GM/DL Albumin 3.9 3.2-4.5 GM/DL Lipase 788 H 8-78 U/L Physical Exam-([facility]) Physical Exam Vital Signs VS - Last 72 Hours, by Label 05/30/20 05/30/20 05/30/20 05/30/20 06:49 09:21 10:45 12:00 Temp 36.5 36.3 36.8 36.6 Pulse 82 84 64 68 Resp 16 16 18 18 B/P (MAP) 148/64 (92) 134/62 181/64 (103) 170/75 (106) Pulse Ox 97 98 94 94 O2 Delivery Room Air Room Air Room Air 05/30/20 05/30/20 05/30/20 05/30/20 12:00 12:00 13:07 13:08 Temp 36.6 Pulse 68 75 93 Resp 18 B/P (MAP) 170/75 (106) Pulse Ox 94 94 O2 Delivery Room Air Room Air 05/30/20 05/30/20 16:00 16:00 Temp 36.6 Pulse 75 Resp 18 B/P (MAP) 178/69 (105) Pulse Ox 94 94 O2 Delivery Room Air Capillary Refill : Less Than 3 Seconds General Appearance: WD/WN, no apparent distress HEENT: PERRL/EOMI Neck: non-tender, full range of motion, supple Respiratory: chest non-tender, lungs clear, normal breath sounds, no respiratory distress, no accessory muscle use Cardiovascular: regular rate, rhythm, no edema, no murmur Gastrointestinal: normal bowel sounds, soft, tenderness (LLQ with some gaurding on exam) Back: no CVA tenderness, no vertebral tenderness Extremities: normal range of motion, non-tender, normal inspection, no calf tenderness, normal capillary refill Neurologic/Psychiatric: lab tech II-XII nml as tested, no motor/sensory deficits, alert, normal mood/affect, oriented x 3 Skin: normal color, warm/dry Lymphatic: no adenopathy Assessment/Plan Assessment/Plan Admission Status: Inpatient Order (span 2 midnights) Reason for Inpatient Admission: Patient needing step down care for acute GI bleeding, specialty care (1) GI bleed Status: Acute Assessment & Plan: - HDS, continue IVFs, General surgery consult, plan for colonoscopy tomorrow after prep tonight Qualifiers: Qualified Codes: K62.5 - Hemorrhage of anus and rectum (2) CAD (coronary artery disease), [place] coronary artery Status: Chronic Assessment & Plan: - Cardiology consulted due to recent stent placement, continue Plavix, stop ASA Qualifiers: Qualified Codes: I25.118 - Atherosclerotic heart disease of [place] coronary artery with other forms of angina pectoris (3) HTN (hypertension) Status: Chronic Assessment & Plan: - holding home meds due to acute GI bleed Qualifiers: Qualified Codes: I10 - Essential (primary) hypertension (4) Normochromic anemia Status: Acute (5) Acute on chronic renal failure Status: Acute Assessment & Plan: - Will continue to monitor BMP Qualifiers: Qualified Codes: N17.9 - Acute kidney failure, unspecified; N18.2 - Chronic kidney disease, stage 2 (mild) (6) Elevated lipase Status: Acute (7) DVT prophylaxis Status: Acute Assessment & Plan: - SCDs only 2/2 GI bleed Clinical Quality Measures DVT/VTE Risk/Contraindication: Risk Factor Score Per Nursin RFS Level Per Nursing on Admit: 2=Moderate JACQUELINE MUNIZ MD May 30, 2020 19:34
[2020-05-30 19:35] VITALS: BP 151/73
--- NOTE | 2020-05-30 21:00 | NUR ---
Patient bowel prep complete.
[2020-05-31] VITALS (10 sets, daily range): BP systolic 117–189; BP diastolic 57–81
--- NOTE | 2020-05-31 | NUR ---
Patient made NPO status at this time. Patient has been having large liquid stools. No bright red blood noted.
[2020-05-31 04:17] LABS: BASOPHILS % (AUTO) 0 % (0-10); EOSINOPHILS # (AUTO) 0.2 10^3/uL (0.0-0.3); EOSINOPHILS % (AUTO) 2 % (0-10); HEMATOCRIT 31 % (35-52); HEMOGLOBIN 10.2 G/DL (11.5-16.0); LYMPHOCYTES # (AUTO) 1.6 X 10^3 (1.0-4.0); LYMPHOCYTES % (AUTO) 18 % (12-44); MEAN CORPUSCULAR HEMOGLOBIN 28 PG (25-34); MEAN CORPUSCULAR HGB CONC 33 G/DL (32-36); MEAN CORPUSCULAR VOLUME 85 FL (80-99); MEAN PLATELET VOLUME 9.7 FL (7.4-10.4); MONOCYTES # (AUTO) 0.8 X 10^3 (0.0-1.0); MONOCYTES % (AUTO) 9 % (0-12); NEUTROPHILS # (AUTO) 6.3 X 10^3 (1.8-7.8); NEUTROPHILS % (AUTO) 71 % (42-75); PLATELET COUNT 280 10^3/uL (130-400); WHITE BLOOD COUNT 8.9 10^3/uL (4.3-11.0)
[2020-05-31 04:30] LABS: ALBUMIN 3.5 GM/DL (3.2-4.5)
[2020-05-31 04:31] LABS: POTASSIUM 3.6 MMOL/L (3.6-5.0)
[2020-05-31 04:32] LABS: CALCIUM 8.4 MG/DL (8.5-10.1)
[2020-05-31 04:33] LABS: TOTAL PROTEIN 5.9 GM/DL (6.4-8.2)
[2020-05-31 04:35] LABS: BILIRUBIN,TOTAL 0.5 MG/DL (0.1-1.0)
[2020-05-31 04:36] LABS: CREATININE SERUM 1.07 MG/DL (0.60-1.30)
[2020-05-31] MEDS: meTOproloL SUCCINATE 50 MG (TOPROL XL) TAB PO SCH (07:46)
[2020-05-31] MEDS: PANTOPRAZOLE 40 MG (PROTONIX) VIAL IV SCH ×2 (07:46→21:34)
--- NOTE | 2020-05-31 08:11 | Progress Note - Surgery ---
CELIA AGUILAR MED STUDENT 05/31/20 0811: Subjective Date Seen by a Provider: May 31, 2020 Subjective/Events-last exam pt was laying in bed. pt states that she currently does not have any bloody stools. pt stated that last night she had very dark stools and that some of them had bloody flecks in them. pt states that she has some dull abdominal pain. pt did not rate the pain. Review of Systems General: No Chills, No Fatigue Pulmonary: No Dyspnea, No Cough Cardiovascular: Chest Pain; No: Palpitations Gastrointestinal: No: Nausea, Vomiting, Diarrhea, Constipation, Melena, Hematochezia Musculoskeletal: No: neck pain, back pain Focused Exam Respiratory: Chest Non Tender, Lungs Clear, Normal Breath Sounds, No Accessory Muscle Use, No Respiratory Distress Cardiovascular: Regular Rate, Rhythm, No Murmur Peripheral Pulses: 2+ Carotid (R), 2+ Carotid (L), 2+ Radial Pulses (R), 2+ Radial Pulses (L) Skin: normal color Objective Exam Vital Signs Date Time Temp Pulse Resp B/P (MAP) Pulse Ox O2 Delivery O2 Flow Rate FiO2 05/31/20 07:44 37.8 82 14 189/81 (117) 94 Room Air 05/31/20 07:00 72 05/31/20 03:10 37.0 67 16 143/65 (91) 94 Room Air 05/31/20 03:10 94 Room Air 05/31/20 01:00 72 05/31/20 00:30 37.2 70 20 157/68 (97) 98 Room Air 05/30/20 23:30 96 Room Air 05/30/20 20:56 98 Room Air 05/30/20 19:35 37.6 77 20 151/73 (99) 95 Room Air 05/30/20 19:35 98 Room Air 05/30/20 19:00 82 05/30/20 16:00 36.6 75 18 178/69 (105) 94 05/30/20 16:00 94 Room Air 05/30/20 13:08 93 05/30/20 13:07 75 05/30/20 12:00 94 Room Air 05/30/20 12:00 36.6 68 18 170/75 (106) 94 Room Air 05/30/20 12:00 36.6 68 18 170/75 (106) 94 Room Air 05/30/20 10:45 36.8 64 18 181/64 (103) 94 Room Air 05/30/20 09:21 36.3 84 16 134/62 98 Room Air I & O 05/31/20 07:00 Intake Total 3500 ml Balance 3500 ml Capillary Refill : Less Than 3 Seconds General Appearance: No Apparent Distress HEENT: No Scleral Icterus (L), No Scleral Icterus (R) Neck: Non Tender; No Lymphadenopathy (L), No Lymphadenopathy (R) Respiratory: Chest Non Tender, Lungs Clear, Normal Breath Sounds, No Accessory Muscle Use, No Respiratory Distress Cardiovascular: Regular Rate, Rhythm, No Murmur Peripheral Pulses: 2+ Carotid (R), 2+ Carotid (L), 2+ Radial Pulses (R), 2+ Radial Pulses (L) Gastrointestinal: normal bowel sounds, soft, tenderness (LLQ with some gaurding on exam) Neurologic/Psychiatric: Alert, Oriented x3, 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 Norm as Tested Skin: Normal Color Lymphatic: No Adenopathy Results Lab Laboratory Tests 05/30/20 11:16: White Blood Count 7.7, Red Blood Count 3.90L, Hemoglobin 10.8L, Hematocrit 33L, Mean Corpuscular Volume 84, Mean Corpuscular Hemoglobin 28, Mean Corpuscular Hemoglobin Concent 33, Red Cell Distribution Width 12.5, Platelet Count 284, Mean Platelet Volume 9.9, Neutrophils (%) (Auto) 77H, Lymphocytes (%) (Auto) 16, Monocytes (%) (Auto) 6, Eosinophils (%) (Auto) 1, Basophils (%) (Auto) 0, Neutrophils # (Auto) 5.9, Lymphocytes # (Auto) 1.2, Monocytes # (Auto) 0.5, Eosinophils # (Auto) 0.1, Basophils # (Auto) 0.0 05/30/20 15:07: Troponin I < 0.028 05/30/20 21:00: Troponin I < 0.028 05/31/20 04:05: White Blood Count 8.9, Red Blood Count 3.70L, Hemoglobin 10.2L, Hematocrit 31L, Mean Corpuscular Volume 85, Mean Corpuscular Hemoglobin 28, Mean Corpuscular Hemoglobin Concent 33, Red Cell Distribution Width 13.0, Platelet Count 280, Mean Platelet Volume 9.7, Neutrophils (%) (Auto) 71, Lymphocytes (%) (Auto) 18, Monocytes (%) (Auto) 9, Eosinophils (%) (Auto) 2, Basophils (%) (Auto) 0, Neutrophils # (Auto) 6.3, Lymphocytes # (Auto) 1.6, Monocytes # (Auto) 0.8, Eosinophils # (Auto) 0.2, Basophils # (Auto) 0.0, Troponin I 0.031H, Sodium Level 139, Potassium Level 3.6, Chloride Level 109H, Carbon Dioxide Level 19L, Anion Gap 11, Blood Urea Nitrogen 16, Creatinine 1.07, Estimat Glomerular Filtration Rate 49, BUN/Creatinine Ratio 15, Glucose Level 101, Calcium Level 8 .4L, Corrected Calcium 8.8, Total Bilirubin 0.5, Aspartate Amino Transf (AST/SGOT) 17, Alanine Aminotransferase (ALT/SGPT) 21, Alkaline Phosphatase 85, Total Protein 5.9L, Albumin 3.5 Assessment/Plan Assessment/Plan Assessment/Plan . anemia hematochezia plan is to do colonoscopy today Clinical Quality Measures DVT/VTE Risk/Contraindication: Risk Factor Score Per Nursin RFS Level Per Nursing on Admit: 2=Moderate AREN SOLER DO 05/31/20 1058: Subjective Time Seen by a Provider: 10:53 Subjective/Events-last exam Pt seen and examined, no new complaints. States she thinks she is cleaned out, did have some dark stools....melena? Review of Systems General: No Chills, No Fatigue Pulmonary: No Dyspnea, No Cough Cardiovascular: Chest Pain (light, describes it as a "glow") Gastrointestinal: No: Nausea, Vomiting Objective Exam General Appearance: No Apparent Distress Respiratory: Lungs Clear, Normal Breath Sounds, No Accessory Muscle Use, No Respiratory Distress Cardiovascular: Regular Rate, Rhythm, No Murmur Gastrointestinal: soft, tenderness (LLQ with some gaurding on exam) Neurologic/Psychiatric: Alert, Oriented x3 Assessment/Plan Assessment/Plan Assessment/Plan Hematochezia Pt finished her prep and is ready for colonoscopy, no questions. Supervisory-Addendum Brief Verification & Attestation Participated in pt care: history, MDM, physical Personally performed: exam, history, MDM Care discussed with: Medical Student Procedures: n/a Verification and Attestation of Medical Student E/M Service A medical student performed and documented this service. I then reviewed and verified all information documented by the medical student and made modification s to such information, when appropriate. I personally performed a physical exam, medical decision making and then discussed any differences between the notes and made revisions as necessary to create one note. Aren Soler , 05/31/20 , 10:58 CELIA AGUILAR MED STUDENT May 31, 2020 08:11 AREN SOLER DO May 31, 2020 10:58
--- NOTE | 2020-05-31 10:43 | NUR ---
PT LEFT FLOOR FOR ENDO AT THIS TIME.
[2020-05-31] MEDS ORDERED: LACTATED RINGERS 1,000 ML IV ONE ×2 (10:46→11:00)
[2020-05-31] MEDS ORDERED: MIDAZOLAM 2 MG/2 ML (VERSED) VIAL ONE (10:54)
[2020-05-31] MEDS ORDERED: PROPOFOL INJECTION 50 ML IV ONE (10:54)
--- NOTE | 2020-05-31 11:50 | NUR ---
pt back to floor from endo. vss. will cont to monitor.
--- NOTE | 2020-05-31 12:26 | Anesthesia-General Post-Op ---
MAC Patient Condition Mental Status/LOC: Same as Preop Cardiovascular: Satisfactory Nausea/Vomiting: Absent Respiratory: Satisfactory Pain: Controlled Complications: Absent Post Op Complications Complications None Follow Up Care/Instructions Patient Instructions None needed. Anesthesiology Discharge Order Discharge Order Patient is doing well, no complaints, stable vital signs, no apparent adverse anesthesia problems. No complications reported per nursing. CHANTAL LION CRNA May 31, 2020 12:26
--- NOTE | 2020-05-31 12:39 | Progress Note - Hospitalist ---
Subjective HPI/CC On Admission Date Seen by Provider: May 31, 2020 Time Seen by Provider: 12:00 Subjective/Events-last exam Patient doing well just weak Reviewed Cardiology and scope reports PT OT will be ordered Will need to be sure she is stable and ready for DC Review of Systems General: Fatigue, Malaise Objective Exam Vital Signs Vital Signs Date Time Temp Pulse Resp B/P (MAP) Pulse Ox O2 Delivery O2 Flow Rate FiO2 05/31/20 19:54 37.3 61 18 120/67 (84) 95 Room Air 05/31/20 11:35 4 Capillary Refill : Less Than 3 Seconds General Appearance: No Apparent Distress, WD/WN, Chronically ill Respiratory: Chest Non Tender, Lungs Clear, Normal Breath Sounds, No Accessory Muscle Use, No Respiratory Distress Cardiovascular: Regular Rate, Rhythm, No Edema, No Gallop, No JVD, No Murmur, Normal Peripheral Pulses Neurologic/Psychiatric: Alert, Oriented x3, No Motor/Sensory Deficits, Normal Mood/Affect Results/Procedures Lab Laboratory Tests 05/31/20 04:05 Patient resulted labs reviewed. Assessment/Plan Assessment and Plan Assess & Plan/Chief Complaint Assessment: GIB Chest pain Weakness Plan: Monitor weakness PT OT Clinical Quality Measures DVT/VTE Risk/Contraindication: Risk Factor Score Per Nursin RFS Level Per Nursing on Admit: 2=Moderate GEORGE RITCHIE DO May 31, 2020 12:39
[2020-05-31] MEDS: NS IV 1000 ML 1,000 ML IV SCH (14:19)
--- NOTE | 2020-05-31 14:48 | NUR ---
PER DR JARAMILLO PT IS OK TO D/C AND RESUME [facility] TOMORROW. THIS RN SPOKE W/ DR RITCHIE, NEW ORDERS RECEIVED TO KEEP PT IN HOSPITAL AND ORDER P.T. AND O.T.
--- NOTE | 2020-05-31 15:26 | Occ Therapy Progress Note ---
Therapy Progress Note OT orders received and chart reviewed. Pt admitted with discomfort to abdomen/ GI bleed. Nursing clears OT entry. Pt completes all ADL tasks with IND per report, clinical judgment, and observation as pt completes MMT/ ROM in stance with good balance, no LOB, and doffs/ dons sock with no complaints. Upon stance pt states slight shakiness, though not enough to create dysfunction to functional tasks. Pt states lives in community apartment complex and has very good friends who are able to complete IADL tasks if she does not feel up for it. Per clinical judgment, pt at PLOF. Pt ready to d/c, stating no difficulties or perceived obstacles at home. No skilled OT intervention rendered at this time. 1, visit (7 min) CARLOS ALBERTO WANG OTR May 31, 2020 15:26
--- NOTE | 2020-05-31 16:06 | Physical Therapy Progress Note ---
Therapy Progress Note Order for evaluation received. Patient states she has been ambulating on her own, and has no needs for PT. She says she has no unsteadiness and feels she is at her prior level of function. Told patient if there is any need for PT in the future to contact her nurse. JODY FERRELL PT May 31, 2020 16:06
--- NOTE | 2020-05-31 17:53 | Cardiology Progress Note ---
Cardiology SOAP Progress Note Subjective: No GI bleeding or chest pain. Objective: I&O/Vital Signs Constitutional: AAO x 3 Respiratory: chest is bilaterally symmetric, lungs clear to auscultation Cardiovascular: regular rate-rhythm, S1 and S2 Gastrointestional: soft, audible bowel sounds Extremities: normal range of motion, non-tender, normal inspection Neurologic/Psychiatric: no motor/sensory deficits, alert, normal mood/affect, oriented x 3 Skin: normal color Results/Procedures: Labs A/P: Assessment/Dx: lower GI bleeding, anemia, History of CAD/PCI, Acute on chronic kidney injury, Possible mild congestive heart failure Plan: lower GI bleeding, anemia, when I saw the patient, GI bleeding has resolved. Ho wever etiology unclear. Patient is on dual antiplatelet therapy including aspirin and Plavix. Discontinue aspirin and continue Plavix for now since the patient has had 2 drug-eluting stents [place] [address] Rand. however if the patient has significant drop in hemoglobin and/or repeat GI bleeding, unfortunately we will have to stop Plavix as well. I did discuss with the santo ent that at that point in time there is risk of stent thrombosis which could result in acute LA and even . History of CAD/PCI, for now continue Plavix. DC aspirin. Acute on chronic kidney injury, defer to the primary team. Possible mild congestive heart failure, elevated BNP. Echocardiogram showed normal LV size and function. Thank you for your consultation. Please call me if you have any questions. Chelle Richards MD, FACP, FACC, FSCAI, FHRS, CCDS Interventional Cardiology Cardiac Electrophysiology Vascular Medicine and Endovascular Interventions Tre RICHARDS MD May 31, 2020 17:53
--- NOTE | 2020-05-31 20:22 | OPERATIVE REPORT ---
DATE OF SERVICE: PREOPERATIVE DIAGNOSIS: Rectal bleed. POSTOPERATIVE DIAGNOSES: Diverticula, colonic ulcers, internal hemorrhoids. PROCEDURE: Colonoscopy with hot biopsy. SURGEON: Aren Soler DO CONFIGURATION MANAGEMENT ARCHITECT: Felicia Ibarra MS3. ANESTHESIA: IV sedation by the LOGISTICS SUPPLY OFFICER. SPECIMEN: Biopsies from the ascending colon and the cecum. BLOOD LOSS: Scant. FLUIDS: Per anesthesia. POSTOPERATIVE CONDITION: Stable. INDICATION FOR PROCEDURE: The patient is an 84-year-old female who started having bright red bleeding, had some mild anemia, hemoglobin is down to 10 and needed a workup. FINDINGS: The patient had some ulcers seen in the cecum and the ascending colon. She had a large amount of diverticula, even some on the right side and in one diverticulum saw blood clot, but did not see any active bleeding. She also had some internal hemorrhoids. PROCEDURE NOTE: After informed consent was obtained, the patient was brought to the endoscopy suite, placed in bed in left lateral decubitus position. She was administered IV sedation by the LOGISTICS SUPPLY OFFICER who then monitored her vitals the entire time, heart rate, blood pressure and pulse ox and the scope was inserted, pushed all the way into about [address] in noted large diverticula, took a picture and then saw some ulcers in the ascending colon, took a picture. Pushed all the way to the cecum, saw more ulcers, right on the cecum and the ileocecal valve. Pushed into the cecal cap, took a picture of the appendiceal orifice, there was a large ulcer right there over the appendiceal orifice, but noted the ileocecal valve and then slowly withdrew the scope insufflating to look circumferentially at the mcmahon. First did two biopsies of the cecum and then pulled up the scope into the ascending colon, did a biopsy of the ascending colon and ulcer and then continued up to the hepatic flexure, then down the transverse colon, the splenic flexure, into the descending colon and sigmoid colon saw a large amount of diverticula and actually large diverticula. In one we saw a blood clot, took a picture of this try to flush it out. There was no active bleeding. Continued down through the sigmoid into the rectum, retroflexed in rectal vault, saw some internal hemorrhoids, took a picture of this and then removed the scope. The patient tolerated the procedure, recovered in endoscopy suite. Job ID: [id number] DocumentID: [id number] Dictated Date: 05/31/2020 11:32:54 Edge Runner Date: 05/31/2020 20:21:20 Dictated By: DO BALJIT RIGGINS
[2020-06-01 01:00] VITALS: BP 146/65
[2020-06-01] MEDS: NS IV 1000 ML 1,000 ML IV SCH (03:55)
[2020-06-01 04:20] VITALS: BP 175/72
[2020-06-01 07:07] LABS: BASOPHILS # (AUTO) 0.1 10^3/uL (0.0-0.1); BASOPHILS % (AUTO) 1 % (0-10); EOSINOPHILS # (AUTO) 0.1 10^3/uL (0.0-0.3); EOSINOPHILS % (AUTO) 2 % (0-10); HEMATOCRIT 31 % (35-52); LYMPHOCYTES # (AUTO) 1.6 X 10^3 (1.0-4.0); LYMPHOCYTES % (AUTO) 26 % (12-44); MEAN CORPUSCULAR HEMOGLOBIN 28 PG (25-34); MEAN CORPUSCULAR HGB CONC 33 G/DL (32-36); MEAN CORPUSCULAR VOLUME 85 FL (80-99); MONOCYTES # (AUTO) 0.6 X 10^3 (0.0-1.0); MONOCYTES % (AUTO) 10 % (0-12); NEUTROPHILS # (AUTO) 3.6 X 10^3 (1.8-7.8); NEUTROPHILS % (AUTO) 61 % (42-75); PLATELET COUNT 273 10^3/uL (130-400); WHITE BLOOD COUNT 5.9 10^3/uL (4.3-11.0)
[2020-06-01 07:24] LABS: ALBUMIN 3.2 GM/DL (3.2-4.5); POTASSIUM 3.5 MMOL/L (3.6-5.0)
[2020-06-01 07:26] LABS: CALCIUM 8.4 MG/DL (8.5-10.1)
[2020-06-01 07:27] LABS: TOTAL PROTEIN 5.6 GM/DL (6.4-8.2)
[2020-06-01 07:29] LABS: BILIRUBIN,TOTAL 0.4 MG/DL (0.1-1.0)
[2020-06-01 07:30] LABS: CREATININE SERUM 0.96 MG/DL (0.60-1.30)
[2020-06-01] MEDS ORDERED: CLOPIDOGREL 75 MG (PLAVIX) TABLET PO SCH (09:00)
[2020-06-01 09:18] VITALS: BP 164/81
[2020-06-01] MEDS: meTOproloL SUCCINATE 50 MG (TOPROL XL) TAB PO SCH (09:22)
[2020-06-01] MEDS: PANTOPRAZOLE 40 MG (PROTONIX) VIAL IV SCH (09:23)
[2020-06-01] MEDS ORDERED: PANT40TA2 PO (12:18)
--- NOTE | 2020-06-01 12:19 | Discharge Summary ---
Discharge Summary Hospital Course Was the Problem List Reviewed?: Yes Hospital Course Date of Admission: May 30, 2020 at 10:30 Admission Diagnosis : Family Physician/Provider: Sho Lackey Aprn Date of Discharge: 06/01/20 Discharge Diagnosis: GI bleed, anemia, elevated troponin Hospital Course: patient had an uncomplicated hospital course she was admitted for melena und erwent colonoscopy that revealed colon ulcerations. Patient was continued on Plavix per cardiology recommendation that aspirin was held. Cardiology consultation provided their expertise along with general surgery with recommendations for discharge since she was able to ambulate eat and drink bowel function returned back to normal and she will have close follow-up for further workup after biopsies completed. Labs and Pending Lab Test: Laboratory Tests 06/01/20 06:02: Sodium Level 140, Potassium Level 3.5L, Chloride Level 107, Carbon Dioxide Level 24, Anion Gap 9, Blood Urea Nitrogen 11, Creatinine 0.96, Estimat Glomerular Filtration Rate 56, BUN/Creatinine Ratio 11, Glucose Level 97, Calcium Level 8.4L, Corrected Calcium 9.0, Total Bilirubin 0.4, Aspartate Amino Transf (AST/SGOT) 12, Alanine Aminotransferase (ALT/SGPT) 16, Alkaline Phosphatase 67, Total Protein 5.6L, Albumin 3.2 06/01/20 06:07: White Blood Count 5.9, Red Blood Count 3.62L, Hemoglobin 10.0L, Hematocrit 31L, Mean Corpuscular Volume 85, Mean Corpuscular Hemoglobin 28, Mean Corpuscular Hemoglobin Concent 33, Red Cell Distribution Width 12.5, Platelet Count 273, Mean Platelet Volume 10.0, Neutrophils (%) (Auto) 61, Lymphocytes (%) (Auto) 26, Monocytes (%) (Auto) 10, Eosinophils (%) (Auto) 2, Basophils (%) (Auto) 1, Neutrophils # (Auto) 3.6, Lymphocytes # (Auto) 1.6, Monocytes # (Auto) 0.6, Eosinophils # (Auto) 0.1, Basophils # (Auto) 0.1 Home Meds Active Protonix (Pantoprazole Sodium) 40 Mg Tablet.dr 40 Mg PO DAILY Reported Aspirin 81 Mg Tab.chew 81 Mg PO DAILY Clopidogrel (Clopidogrel Bisulfate) 75 Mg Tablet 75 Mg PO DAILY Atorvastatin Calcium 40 Mg Tablet 40 Mg PO HS Metoprolol Succinate 50 Mg Tab.er.24h 50 Mg PO DAILY Assessment/Pt Instructions [facility] in one week Discharge Planning: <30 minutes discharge planning Discharge Instructions Discharge Diet: Cardiac Diet Pneumonia Vaccine Order Indica: Yes Discharge Physical Examination Vital Signs Vital Signs Date Time Temp Pulse Resp B/P (MAP) Pulse Ox O2 Delivery O2 Flow Rate FiO2 06/01/20 09:18 36.4 79 18 164/81 (108) 95 Room Air 05/31/20 11:35 4 General Appearance: No Apparent Distress, WD/WN, Chronically ill Allergies: Coded Allergies: morphine (Verified Allergy, Mild, 06/30/19) Discharge Summary Date of Admission May 30, 2020 at 10:30 Date of Discharge Discharge Date: Jun 01, 2020 Discharge Diagnosis Assessment: GIB Chest pain Weakness Plan: Monitor weakness PT OT Clinical Quality Measures DVT/VTE Risk/Contraindication: Risk Factor Score Per Nursin RFS Level Per Nursing on Admit: 2=Moderate GEORGE RITCHIE DO Jun 01, 2020 12:19
[2020-06-01 12:37] VITALS: BP 156/92
--- NOTE | 2020-06-01 15:18 | Cardiology Progress Note ---
Cardiology SOAP Progress Note Subjective: no chest pain Objective: I&O/Vital Signs Constitutional: AAO x 3 Respiratory: chest is bilaterally symmetric, lungs clear to auscultation Cardiovascular: regular rate-rhythm, S1 and S2 Gastrointestional: soft, audible bowel sounds Extremities: normal range of motion, non-tender, normal inspection, no lower extremity edema bilateral Neurologic/Psychiatric: no motor/sensory deficits, alert, normal mood/affect, oriented x 3 Skin: normal color, warm/dry Results/Procedures: Labs A/P: Assessment/Dx: lower GI bleeding, anemia, History of CAD/PCI, Acute on chronic kidney injury, Possible mild congestive heart failure Plan: lower GI bleeding, anemia, when I saw the patient, GI bleeding has resolved. However etiology unclear. Patient is on dual antiplatelet therapy including aspirin and Plavix. Discontinue aspirin and continue Plavix for now since the patient has had 2 drug-eluting stents in [place] [address] Rand. however if the patient has significant drop in hemoglobin and/or repeat GI bleeding, unfortunately we we had to stop Plavix. However Plavix was restarted this morning 06/01/2020. Aspirin was put on hold. Colonoscopy showed diverticulitis, internal hemorrhoids and possible colonic ulcers. Will defer to the general surgery team. History of CAD/PCI, for now continue Plavix. DC aspirin. Acute on chronic kidney injury, defer to the primary team. Possible mild congestive heart failure, elevated BNP. Thank you for your consultation. Please call me if you have any questions. Chelel Richards MD, FACP, FACC, FSCAI, FHRS, CCDS Interventional Cardiology Cardiac Electrophysiology Vascular Medicine and Endovascular Interventions Tre RICHARDS MD Jun 01, 2020 15:18
--- NOTE | 2020-06-04 11:54 | Physician Query Clarification ---
PQ-CHF Specificity Admission Date: May 30, 2020 at 10:30 Discharge Date: Jun 01, 2020 at 15:41 Dr. Richards, The medical record reflects the following clinical scenario: History/Risk Factors: GIB, CAD, HTN w/acute on chronic kidney disease, possible mild CHF Clinical Findings: Pro-BNP 1115.0, EF 55-65% Treatment: Toprol XL 50 mg PO Question: Can you further specify the acuity &/or type of CHF per the clinical indicators above? Please document a response in the Progress Notes or Discharge Summary. 1. Acuity: Acute, Chronic or Acute on Chronic 2. Type: Systolic, Diastolic or Systolic & Diastolic 3. Unspecified: CHF cannot be further specified regarding type or acuity 4. Other, with explanation of clinical findings 5. Clinically undetermined, no explanation for clinical findings PHYSICIAN RESPONSE Acuity: Acute on Chronic Type: Diastolic Please remember a lack of response to the above will prompt a phone page by CDI/Coding staff. In responding to this query, please exercise your independent professional judgment. The purpose of this communication is to more accurately reflect the complexity of your patients condition. The fact that a question is asked does not imply that any particular answer is desired or expected. Thank you for your timely response to this clarification. Requestors name: Perez THIS PHYSICIAN QUERY FORM IS A PERMANENT PART OF THE MEDICAL RECORD PEREZ BEYER Jun 04, 2020 11:54 Tre RICHARDS MD Jun 04, 2020 16:57
--- NOTE | 2020-06-04 11:59 | Physician Query Clarification ---
PQ-Further Specificity Admission/Discharge Admission Date: May 30, 2020 at 10:30 Discharge Date: Jun 01, 2020 at 15:41 Dr. Richards, The medical record reflects the following clinical scenario: History/Risk Factors: GIB, CAD, HTN w/acute on chronic kidney disease, possible mild CHF Clinical Findings: Troponin 0.031 Treatment: Toprol XL 50 mg PO, Plavix 75 mg PO Question: Can you further specify elevated troponin per the clinical indicators above? Please document a response in the Progress Notes or Discharge Summary. 1. Type 2 IN 2. elevated troponin etiology unknown no IN 3. Other, with explanation of the clinical findings. 4. Clinically undetermined, no explanation for the clinical findings. PHYSICIAN RESPONSE Can you specify per above: 2 Please remember a lack of response to the above will prompt a phone page by CDI/Coding staff. In responding to this query, please exercise your independent professional judgment. The purpose of this communication is to more accurately reflect the complexity of your patients condition. The fact that a question is asked does not imply that any particular answer is desired or expected. Thank you for your timely response to this clarification. Requestors name: Perez THIS PHYSICIAN QUERY FORM IS A PERMANENT PART OF THE MEDICAL RECORD PEREZ BEYER Jun 04, 2020 11:59 Tre RICHARDS MD Jun 04, 2020 16:59
== END 2020-06-01 15:41 | disposition home or self-care (01) | DRG 378 ==
LOC: EDUNIT# 06:36 → ER FS 06:38 → CSD 10:30
PROVIDERS: ADMIT Family Medicine; ATTEND Family Medicine
PROC: 0DBH8ZX Excision of Cecum, Via Natural or Artificial Opening Endoscopic, Diagnostic (ICD-10-PCS; 2020-05-31)
PROC: 0DBK8ZX Excision of Ascending Colon, Via Natural or Artificial Opening Endoscopic, Diagnostic (ICD-10-PCS; principal; 2020-05-31 10:57)
DX: K57.31 Diverticulosis of large intestine without perforation or abscess with bleeding (principal); I13.0 Hypertensive heart and chronic kidney disease with heart failure and stage 1 through stage 4 chronic kidney disease, or unspecified chronic kidney disease; N17.9 Acute kidney failure, unspecified; K63.3 Ulcer of intestine; I25.119 Atherosclerotic heart disease of native coronary artery with unspecified angina pectoris; N18.9 Chronic kidney disease, unspecified; I50.9 Heart failure, unspecified; D64.9 Anemia, unspecified; K64.8 Other hemorrhoids; K21.9 Gastro-esophageal reflux disease without esophagitis; G35 Multiple sclerosis; Z95.5 Presence of coronary angioplasty implant and graft; Z86.73 Personal history of transient ischemic attack (TIA), and cerebral infarction without residual deficits; Z79.02 Long term (current) use of antithrombotics/antiplatelets; Z79.82 Long term (current) use of aspirin; Z90.49 Acquired absence of other specified parts of digestive tract; Z90.89 Acquired absence of other organs; Z90.710 Acquired absence of both cervix and uterus
CPT/HCPCS: 36415; 71045; 74176; 80053; 82274; 83690; 83880; 84484; 85025; 85610; 85730; 86850; 86900; 86901; 93005; 93306; 96374; 96375

== ENCOUNTER 2021-01-16 08:08 | Emergency (ER) | payer MEDICARE ==
[~2021-01-16] VITALS: Ht 157.4 cm; Wt 73.1 kg
[~2021-01-16 08:08] MED LIST changes: +AMLO-251 PO; -AMLO10TA7 PO; +ATOR40TA70 PO; +METO50TA7 PO; +PANT40TA2 PO
--- NOTE | 2021-01-16 08:25 | ED Integumentary General ---
General Chief Complaint: Skin/Wound Problems Stated Complaint: RASH Source: patient Exam Limitations: no limitations, clinical condition History of Present Illness Date Seen by Provider: Jan 16, 2021 Time Seen by Provider: 08:15 Initial Comments Patient is an 85-year-old female who presents with diffuse urticarial rash to face torso and extremities. Rash began yesterday and is moderate and diffuse and pruritic. No medications taken prior to ED arrival patient is not on any new medications denies household products change or exposure to poison ina or oak. She denies airway swelling, wheezing, shortness of breath. She denies fevers chills, sweats. Patient did recently completed a course of Bactrim and Pyridium for treatment of a lower urinary tract infection. No history of prior sulfa reactions. Timing/Duration: yesterday Location: generalized Possible Cause: other Modifying Factors: improves with other Associated Symptoms: other Allergies and Home Medications Allergies Coded Allergies: morphine (Verified Allergy, Mild, 06/30/19) Home Medications Atorvastatin Calcium 40 Mg Tablet, 40 MG PO HS, (Reported) Clopidogrel Bisulfate 75 Mg Tablet, 75 MG PO DAILY, (Reported) Metoprolol Succinate 50 Mg Tab.er.24h, 50 MG PO DAILY, (Reported) Pantoprazole Sodium 40 Mg Tablet.dr, 40 MG PO DAILY Prescribed by: GEORGE RITCHIE on 06/01/20 1218 Patient Home Medication List Home Medication List Reviewed: Yes Review of Systems Review of Systems Constitutional: see HPI EENTM: see HPI Respiratory: see HPI Cardiovascular: see HPI Gastrointestinal: see HPI Genitourinary: see HPI Musculoskeletal: see HPI Skin: see HPI Psychiatric/Neurological: See HPI Endocrine: See HPI Hematologic/Lymphatic: See HPI All Other Systems Reviewed Negative Unless Noted: Yes Past Wlmvcvb-Kheskb-Wdiuuh Hx Past Med/Social Hx: Reviewed Nursing Past Med/Soc Hx Patient Social History 2nd Hand Smoke Exposure: No Recent Hopitalizations: Yes (stents) Immunizations Up To Date Tetanus Booster (TDap): Unknown Date of Influenza Vaccine: May 29, 2019 Seasonal Allergies Seasonal Allergies: No Past Medical History Surgeries: Yes Adenoidectomy, Appendectomy, Gallbladder, Hysterectomy, Tonsillectomy Respiratory: No Cardiac: Yes Angina, Hypertension 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, 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 Genitourinary: No Gastrointestinal: Yes Arthritis Endocrine: No Cancer: No Family Medical History Other Conditions/Hx Physical Exam Vital Signs Vital Signs - First Documented 01/16/21 08:14 Temp 36.6 Pulse 53 Resp 16 B/P (MAP) 138/86 (103) Pulse Ox 98 O2 Delivery Room Air Capillary Refill : General Appearance: WD/WN, no apparent distress HEENT: PERRL/EOMI, normal ENT inspection, TMs normal, pharynx normal Neck: non-tender, full range of motion Cardiovascular: normal peripheral pulses, no edema, no gallop, no murmur Respiratory: lungs clear Gastrointestinal: soft Back: normal inspection Extremities: normal range of motion Neurologic/Psychiatric: 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 No target lesions, rash tenderness or sloughing. No weeping. No streaking or cellulitis) Progress/Results/Core Measures Results/Orders My Orders Orders - ADONAY SAUL DO Prednisone Tablet (Deltasone Tablet) (01/16/21 08:30) Diphenhydramine Tablet (Benadryl Tablet) (01/16/21 08:30) Famotidine Tablet (Pepcid Tablet) (01/16/21 08:30) Medications Given in ED Current Medications Medications Dose Ordered Sig/Negrito Route Start Time Stop Time Status Last Admin Dose Admin Diphenhydramine HCl 50 mg ONCE ONCE PO 01/16/21 08:30 01/16/21 08:31 DC 01/16/21 08:29 50 MG Famotidine 40 mg ONCE ONCE PO 01/16/21 08:30 01/16/21 08:31 DC 01/16/21 08:29 40 MG Prednisone 50 mg ONCE ONCE PO 01/16/21 08:30 01/16/21 08:31 DC 01/16/21 08:29 50 MG Vital Signs/I&O 01/16/21 08:14 Temp 36.6 Pulse 53 Resp 16 B/P (MAP) 138/86 (103) Pulse Ox 98 O2 Delivery Room Air Departure Communication (Admissions) Urticarial rash consistent with allergy to unknown cause versus sulfa reaction. Moderate improvement while in the emergency department. We will continue supportive care with PCP follow-up in 1 to 2 days. Return precautions reviewed. Patient verbalizes understanding agreement discharge instructions prior to departure. Impression Primary Impression: Urticaria Disposition: HOME, SELF-CARE Condition: Stable Departure-Patient Inst. Decision time for Depature: 09:24 Referrals: [facility] (PCP) Primary Care Physician ANTY CARMEN APRN (Family) Primary Care Physician Patient Instructions: Emily (DC) Add. Discharge Instructions: Please take newly prescribed medications as directed. Follow-up with your PCP in 1 to 2 days for reevaluation. Try to identify an eliminate any new household products or food exposures. Return to the ED if new or worsening symptoms. All discharge instructions reviewed with patient and/or family. Voiced understanding. Scripts Cetirizine HCl (Zyrtec) 10 Mg Capsule 10 MG PO BID, #10 CAP Prov: ADONAY SAUL DO 01/16/21 Famotidine (Pepcid) 20 Mg Tablet 20 MG PO BID, #10 TAB Prov: ADONAY SAUL DO 01/16/21 Prednisone (Prednisone) 20 Mg Tab 40 MG PO DAILY, #6 TAB 0 Refills Prov: ADONAY SAUL DO 01/16/21 ADONAY SAUL DO Jan 16, 2021 08:25
[2021-01-16] MEDS ORDERED: diphenhydrAMINE 25 MG TAB (BENADRYL) PO ONE (08:30)
[2021-01-16] MEDS ORDERED: FAMOTIDINE 20 MG (PEPCID) TABLET PO ONE (08:30)
[2021-01-16] MEDS ORDERED: predniSONE 20 MG TAB PO ONE (08:30)
[2021-01-16] MEDS ORDERED: PRD20T PO (09:26)
[2021-01-16] MEDS ORDERED: FAMO-119 PO (09:26)
[2021-01-16] MEDS ORDERED: CETI10CA PO (09:26)
[2021-01-16 09:29] VITALS: BP 142/82
== END 2021-01-16 09:43 | disposition home or self-care (01) ==
LOC: EDUNIT# 08:08 → ER FS 08:10
DX: L50.9 Urticaria, unspecified (principal); I10 Essential (primary) hypertension; Z86.73 Personal history of transient ischemic attack (TIA), and cerebral infarction without residual deficits; Z88.5 Allergy status to narcotic agent
CPT/HCPCS: 99283

== ENCOUNTER 2021-04-03 20:05 | Emergency (ER) | payer MEDICARE ==
[~2021-04-03] VITALS: Ht 157.4 cm; Wt 76.1 kg
[~2021-04-03 20:05] MED LIST changes: +CETI10CA PO; +FAMO-119 PO; +PRD20T PO
--- NOTE | 2021-04-03 20:14 | ED General ---
General Stated Complaint: RIGHT LEG PAIN History of Present Illness Date Seen by Provider: Apr 03, 2021 Time Seen by Provider: 20:14 Initial Comments 85-year-old female presents with right lower leg/calf pain. Patient reports this been going on for a couple months since she got her first Covid shot. She got her second Covid shot about a month ago and got little bit worse and then got better. She reports he got worse again over the last few days. She has been seen by her primary care provider and had an ultrasound which which was negative. Patient is concerned that she has developed a blood clot and wants to have that evaluated. She is able ambulate without any difficulty. Allergies and Home Medications Allergies Coded Allergies: morphine (Verified Allergy, Mild, 06/30/19) Home Medications Atorvastatin Calcium 40 Mg Tablet, 40 MG PO HS, (Reported) Cetirizine HCl 10 Mg Capsule, 10 MG PO BID Prescribed by: ADONAY SAUL on 01/16/21925 Clopidogrel Bisulfate 75 Mg Tablet, 75 MG PO DAILY, (Reported) Famotidine 20 Mg Tablet, 20 MG PO BID Prescribed by: ADONAY SAUL on 01/16/21925 Metoprolol Succinate 50 Mg Tab.er.24h, 50 MG PO DAILY, (Reported) Pantoprazole Sodium 40 Mg Tablet.dr, 40 MG PO DAILY Prescribed by: GEORGE RITCHIE on 06/01/201217 Prednisone 20 Mg Tab, 40 MG PO DAILY Prescribed by: ADONAY SAUL on 01/16/21925 Patient Home Medication List Home Medication List Reviewed: Yes Review of Systems Review of Systems Constitutional: no symptoms reported EENTM: no symptoms reported Respiratory: no symptoms reported Cardiovascular: no symptoms reported Gastrointestinal: no symptoms reported Musculoskeletal: see HPI Skin: see HPI Psychiatric/Neurological: No Symptoms Reported Hematologic/Lymphatic: No Symptoms Reported Immunological/Allergic: no symptoms reported Past Bxgxdve-Bfzmdf-Yuaegw Hx Immunizations Up To Date Tetanus Booster (TDap): Unknown Seasonal Allergies Seasonal Allergies: No Past Medical History Surgeries: Yes (Stent x2) Adenoidectomy, Appendectomy, Cardiac, Gallbladder, Hysterectomy, Tonsillectomy Respiratory: No Cardiac: Yes Angina, Hypertension 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 oz. kg; 29.00 BMI Method: General Appearance: No Apparent Distress, WD/WN Respiratory: Lungs Clear, Normal Breath Sounds Cardiovascular: Regular Rate, Rhythm, No Edema Gastrointestinal: Soft Extremity: Normal Capillary Refill, Calf Tenderness (Mild. No popliteal tenderness but more lower calf tenderness) Neurologic/Psychiatric: Alert, Oriented x3, No Motor/Sensory Deficits, Normal Mood/Affect, display director II-XII Norm as Tested Skin: Normal Color, Warm/Dry Progress/Results/Core Measures Suspected Sepsis SIRS Temperature: Pulse: Respiratory Rate: Blood Pressure / Mean: Results/Orders Lab Results Laboratory Tests Test 04/03/21 20:36 Range/Units D-Dimer 0.48 0.00-0.49 UG/ML My Orders Orders - MITALI ORTIZ DO Fibrin Degradation Products (04/03/21 20:23) Vital Signs/I&O 04/03/21 20:06 Temp 36.1 Pulse 70 Resp 16 B/P (MAP) 162/70 (100) Pulse Ox 97 O2 Delivery Room Air Capillary Refill : Departure Impression Primary Impression: Strain of right calf muscle Disposition: 01 HOME, SELF-CARE Condition: Stable Departure-Patient Inst. Referrals: JAS PINEDA DO (PCP/Family) Primary Care Physician Patient Instructions: Muscle Strain (DC) Add. Discharge Instructions: 4% topical lidocaine with menthol as directed on package Ice to affected area 2-3 times daily for 10 to 15 minutes Follow-up with your primary care provider in 5 to 7 days if symptoms or not improved. MITALI ORTIZ DO Apr 03, 2021 20:14
[2021-04-03 21:26] VITALS: BP 138/56
== END 2021-04-03 21:20 | disposition home or self-care (01) ==
LOC: EDUNIT# 20:05 → ER FS 20:06
DX: S86.911A Strain of unspecified muscle(s) and tendon(s) at lower leg level, right leg, initial encounter (principal); I10 Essential (primary) hypertension; K21.9 Gastro-esophageal reflux disease without esophagitis; Z86.73 Personal history of transient ischemic attack (TIA), and cerebral infarction without residual deficits; Z79.01 Long term (current) use of anticoagulants; Z79.52 Long term (current) use of systemic steroids; Z79.899 Other long term (current) drug therapy; X58.XXXA Exposure to other specified factors, initial encounter
CPT/HCPCS: 36415; 85379

== ENCOUNTER → 2021-04-21 | Outpatient (CLI) | payer MEDICARE ==
--- NOTE | 2021-04-21 15:29 | Diagnostic Imaging Report ---
PROCEDURE: US Venous Lower Ext Massimo. TECHNIQUE: Multiple real-time grayscale images were obtained over the lower extremities in various projections, bilaterally. Additional duplex Doppler and color Doppler images were also obtained. INDICATION: Thrombophlebitis. FINDINGS: The femoropopliteal deep venous system is widely patent bilaterally with normal color Doppler flow, normal compressibility, and normal waveforms. No sonographically demonstrated superficial venous thrombus was found. No mass or fluid collection demonstrated. IMPRESSION: Normal negative bilateral lower extremity venous Doppler and ultrasound exam. Dictated by: Dictated on workstation # [id number]
== END ==
LOC: RAD 14:00
PROVIDERS: ATTEND Emergency Medicine
DX: I80.01 Phlebitis and thrombophlebitis of superficial vessels of right lower extremity (principal)
CPT/HCPCS: 93970

== ENCOUNTER 2021-05-26 20:43 | Emergency (ER) | payer MEDICARE ==
[~2021-05-26] VITALS: Ht 157.4 cm; Wt 75.9 kg
--- NOTE | 2021-05-26 20:57 | ED General ---
General Stated Complaint: LT SIDE FACIAL NUMBNESS,DIZZY History of Present Illness Date Seen by Provider: May 26, 2021 Time Seen by Provider: 20:48 Initial Comments 82-year-old female presents with sudden onset of an episode of dizziness which caused her to fall forward nearly hitting a wall in her bedroom, but she caught herself with her arms and never get anything other than her arms on the wall. She never fell to the ground was able to hold herself up. She denies any her head, but since the episode, she has had numbness to the left side of her jaw. Other than feeling a little dizzy, she denies any weakness, any visual changes or speech difficulty. She is able to walk and denies any weakness of her legs or arms. She does admit to having episodes of dizziness occasionally. Denies any recent illness, fever chills, cough shortness of air. Denies abdominal pain or vomiting. Allergies and Home Medications Allergies Coded Allergies: morphine (Verified Allergy, Mild, 06/30/19) Home Medications Atorvastatin Calcium 40 Mg Tablet, 40 MG PO HS, (Reported) Cetirizine HCl 10 Mg Capsule, 10 MG PO BID Prescribed by: ADONAY SAUL on 01/16/21925 Clopidogrel Bisulfate 75 Mg Tablet, 75 MG PO DAILY, (Reported) Famotidine 20 Mg Tablet, 20 MG PO BID Prescribed by: ADONAY SAUL on 01/16/21925 Meclizine HCl 25 Mg Tablet, 25 MG PO Q8H Prescribed by: CRISTIANE FERNANDO on 05/26/21 2200 Metoprolol Succinate 50 Mg Tab.er.24h, 50 MG PO DAILY, (Reported) Pantoprazole Sodium 40 Mg Tablet.dr, 40 MG PO DAILY Prescribed by: GEORGE RITCHIE on 06/01/20 1218 Prednisone 20 Mg Tab, 40 MG PO DAILY Prescribed by: ADONAY SAUL on 01/16/21925 Patient Home Medication List Home Medication List Reviewed: Yes Review of Systems Review of Systems Constitutional: No chills; dizziness; No fever, No malaise, No weakness EENTM: see HPI, other (numbness left jaw) Respiratory: No cough, No short of breath Cardiovascular: No chest pain, No edema, No palpitations, No syncope Gastrointestinal: No abdominal pain, No nausea, No vomiting Skin: No change in color, No rash Psychiatric/Neurological: Denies Headache; Numbness; Denies Paresthesia, Denies Tremors, Denies Weakness Past Ssczhrd-Zpoouh-Rexdtw Hx Immunizations Up To Date Tetanus Booster (TDap): Unknown Seasonal Allergies Seasonal Allergies: No Past Medical History Surgeries: Yes (Stent x2) Adenoidectomy, Appendectomy, Cardiac, Gallbladder, Hysterectomy, Tonsillectomy Respiratory: No Cardiac: Yes Angina, Hypertension 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 oz. kg; 30.00 BMI Method: General Appearance: No Apparent Distress, WD/WN Eyes: Bilateral Eye Normal Inspection, Bilateral Eye PERRL, Bilateral Eye EOMI HEENT: PERRL/EOMI, Normal ENT Inspection, Other (sensation of numbness in small area of Left TMJ, no skin changes, ecchymosis or edema) Neck: Full Range of Motion, Normal Inspection, Non Tender, Supple Respiratory: Chest Non Tender, Lungs Clear, Normal Breath Sounds, No Accessory Muscle Use, No Respiratory Distress Cardiovascular: Regular Rate, Rhythm, No Edema, No JVD Gastrointestinal: Normal Bowel Sounds, Non Tender, Soft Back: Normal Inspection, No CVA Tenderness Extremity: Normal Capillary Refill, Non Tender Neurologic/Psychiatric: Alert, Oriented x3, No Motor/Sensory Deficits, Normal 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, 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 REassurance given and advised PCP f/u if not improving or worse. Departure Impression Primary Impression: Vertigo Disposition: HOME, SELF-CARE Condition: Improved Departure-Patient Inst. Decision time for Depature: 21:59 Referrals: JAS JON DO (PCP/Family) Primary Care Physician Patient Instructions: Vertigo (a Type of Dizziness) (DC) Add. Discharge Instructions: Follow up with Dr Jon in 1-2 weeks if your dizziness episodes continue. Scripts Meclizine HCl (Meclizine HCl) 25 Mg Tablet 25 MG PO Q8H for Dizziness, #20 TAB Prov: CRISTIANE FERNANDO DO 05/26/21 CRISTIANE FERNANDO DO May 26, 2021 20:57
[2021-05-26] MEDS ORDERED: MECLIZINE 25 MG (ANTIVERT) TAB PO ONE (21:00)
--- NOTE | 2021-05-26 21:27 | Diagnostic Imaging Report ---
PROCEDURE: CT head without contrast. TECHNIQUE: Multiple contiguous axial images were obtained through the brain without the use of intravenous contrast. Auto Exposure Controls were utilized during the CT exam to meet ALARA standards for radiation dose reduction. DATE: May 26, 2021. COMPARISON: None. INDICATION: 85-year-old female, dizziness. Left-sided facial pain. FINDINGS: The ventricles and cerebral spinal fluid spaces are of normal size and configuration for the patient's age. There is no mass effect or midline shift. There is no acute intracranial hemorrhage. There is no abnormal extra-axial fluid collection. The visualized portions of the paranasal sinuses, mastoid air cells and middle ears are well aerated. IMPRESSION: 1. No identified acute intracranial abnormality. Dictated by: Dictated on workstation # [id number]
[2021-05-26] MEDS ORDERED: MECL-149 PO (22:00)
[2021-05-26 22:02] VITALS: BP 142/78
== END 2021-05-26 22:02 | disposition home or self-care (01) ==
LOC: EDUNIT# 20:43 → ER FS 20:45
DX: R42 Dizziness and giddiness (principal); I10 Essential (primary) hypertension; K21.9 Gastro-esophageal reflux disease without esophagitis; G35 Multiple sclerosis; Z86.73 Personal history of transient ischemic attack (TIA), and cerebral infarction without residual deficits; Z79.02 Long term (current) use of antithrombotics/antiplatelets; Z79.52 Long term (current) use of systemic steroids; Z79.899 Other long term (current) drug therapy
CPT/HCPCS: 70450

== ENCOUNTER → 2021-05-27 | Outpatient (CLI) | payer MEDICARE ==
[~2021-05-27] MED LIST changes: +CATHETER FLUSH 10 ML SYR IV PRN; +HOLD METFORMIN - RECEIVED CONTRAST 20 ML VIAL IV SCH; +IOHEXOL 350 MG/ML 100 ML (OMNIPAQUE 350) VIAL IV ONE; +MECL-149 PO; +NS 100 ML (IVPB) BAG IV ONE
[2021-05-27 16:30] LABS: ALBUMIN 4.1 GM/DL (3.2-4.5); BILIRUBIN,TOTAL 0.3 MG/DL (0.1-1.0); CALCIUM 8.9 MG/DL (8.5-10.1); CREATININE SERUM 1.16 MG/DL (0.60-1.30); POTASSIUM 4.3 MMOL/L (3.6-5.0); TOTAL PROTEIN 6.6 GM/DL (6.4-8.2)
--- NOTE | 2021-05-27 17:29 | Diagnostic Imaging Report ---
PROCEDURE: CT abdomen and pelvis with contrast. TECHNIQUE: Multiple contiguous axial images were obtained through the abdomen and pelvis after administration of intravenous contrast. Auto Exposure Controls were utilized during the CT exam to meet ALARA standards for radiation dose reduction. All CT scans use one or more of the following dose optimizing techniques: Automated exposure control, MA and/or KvP adjustment based on patient size and exam type or iterative reconstruction. INDICATION: Pelvic and perineal pain. COMPARISON: Comparison is made with prior CT from 05/30/2020. FINDINGS: Lung bases are free of acute infiltrates. No discrete liver mass is detected. The gallbladder is surgically absent. No biliary ductal dilatation is seen. There are calcifications in the pancreatic head and uncinate with diffuse dilatation of the pancreatic duct, which is likely chronic. No peripancreatic inflammation or fluid is seen. Spleen is unremarkable apart from multiple calcified granulomas. No adrenal mass is detected. Left kidney does contain a mixed-density lesion in the lower pole measuring 16 mm. This is stable when compared with the CT study dating back to July 2019. Right kidney is unremarkable. The aorta is calcified but nonaneurysmal. Bowel loops are normal in caliber. There is diverticulosis throughout the colon, most marked in the sigmoid, but no evidence of acute diverticulitis. The bladder is unremarkable. The uterus appears to be surgically absent. There is no free fluid or fluid collection. IMPRESSION: Overall stable CT of the abdomen and pelvis when compared with study dating back to 2018. The solid-appearing left lower pole renal lesion appears to be fairly stable. 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 No acute feature in the abdomen or pelvis is identified. Dictated by: Dictated on workstation # [id number]
== END ==
LOC: RAD FS 15:23
PROVIDERS: ATTEND Nurse Practitioner Family
DX: N28.9 Disorder of kidney and ureter, unspecified (principal); K86.89 Other specified diseases of pancreas; R19.09 Other intra-abdominal and pelvic swelling, mass and lump
CPT/HCPCS: 36415; 74177; 80053

== ENCOUNTER 2022-01-24 06:45 | Emergency (ER) | payer MEDICARE ==
[~2022-01-24] VITALS: Ht 160 cm; Wt 75.6 kg
[~2022-01-24 06:45] MED LIST changes: -CATHETER FLUSH 10 ML SYR IV PRN; -HOLD METFORMIN - RECEIVED CONTRAST 20 ML VIAL IV SCH; -IOHEXOL 350 MG/ML 100 ML (OMNIPAQUE 350) VIAL IV ONE; -NS 100 ML (IVPB) BAG IV ONE
[2022-01-24 07:19] LABS: BASOPHILS # (AUTO) 0.1 10^3/uL (0.0-0.1); BASOPHILS % (AUTO) 1 % (0-10); EOSINOPHILS # (AUTO) 0.2 10^3/uL (0.0-0.3); EOSINOPHILS % (AUTO) 3 % (0-10); HEMATOCRIT 37 % (35-52); HEMOGLOBIN 12.2 g/dL (11.5-16.0); LYMPHOCYTES # (AUTO) 1.7 10^3/uL (1.0-4.0); LYMPHOCYTES % (AUTO) 25 % (12-44); MEAN CORPUSCULAR HEMOGLOBIN 28 pg (25-34); MEAN CORPUSCULAR HGB CONC 33 g/dL (32-36); MEAN CORPUSCULAR VOLUME 84 fL (80-99); MEAN PLATELET VOLUME 9.7 fL (9.0-12.2); MONOCYTES # (AUTO) 0.5 10^3/uL (0.0-1.0); MONOCYTES % (AUTO) 8 % (0-12); NEUTROPHILS # (AUTO) 4.2 10^3/uL (1.8-7.8); NEUTROPHILS % (AUTO) 63 % (42-75); PLATELET COUNT 263 10^3/uL (130-400); WHITE BLOOD COUNT 6.6 10^3/uL (4.3-11.0)
--- NOTE | 2022-01-24 07:28 | ED General ---
General Chief Complaint: Chest Pain Stated Complaint: R EYE RED, R EAR PAIN, DIZZINESS, NAUSEA Source of Information: Patient, Old Records History of Present Illness Date Seen by Provider: Jan 24, 2022 Time Seen by Provider: 07:21 Initial Comments 86-year-old female presenting with complaints of right ear pain, increased cough, increased dizziness and intermittent flushed feeling. This is been going on since at least . She also has had some nausea and loose stools. She did have an episode of vomiting on . She has an appointment to see cardiology on Wednesday about her heart. She has a small amount of blood on the surface of the eye on the left. She denies any direct trauma to her eye. She has not had any change in her vision of the left eye. She denies any pain or burning with urination. She states that she has not been coughing anything up Timing/Duration: 3-4 Days Severity: Moderate Modifying Factors: worse with Movement Associated Systoms: Chest Pain (She reports some chest tightness), Cough (Nonpr oductive cough); No Diaphoresis, No Fever/Chills, No Headaches, No Loss of Appetite, No Malaise; Nausea/Vomiting; No Rash, No Seizure, No Shortness of Air, No Syncope, No Weakness Allergies and Home Medications Allergies Coded Allergies: morphine (Verified Allergy, Mild, 06/30/19) Patient Home Medication List Home Medication List Reviewed: Yes Atorvastatin Calcium (Atorvastatin Calcium) 40 Mg Tablet, 40 MG PO HS, (Reported) Entered as Reported by: GINA NELSON on 05/30/20 1503 Azithromycin (Azithromycin) 500 Mg Tablet, 500 MG PO DAILY Prescribed by: DEREK SOMERS on 01/24/22 0950 Cetirizine HCl (Zyrtec) 10 Mg Capsule, 10 MG PO BID Prescribed by: ADONAY SAUL on 01/16/21 09 Clopidogrel Bisulfate (Clopidogrel) 75 Mg Tablet, 75 MG PO DAILY, (Reported) Entered as Reported by: GINA NELSON on 05/30/20 1503 Famotidine (Pepcid) 20 Mg Tablet, 20 MG PO BID Prescribed by: ADONAY SAUL on 01/16/21 0926 Meclizine HCl (Meclizine HCl) 25 Mg Tablet, 25 MG PO Q8H Prescribed by: CRISTIANE FERNANDO on 05/26/21 2200 Metoprolol Succinate (Metoprolol Succinate) 50 Mg Tab.er.24h, 50 MG PO DAILY, (Reported) Entered as Reported by: GINA NELSON on 05/30/20 1503 Pantoprazole Sodium (Protonix) 40 Mg Tablet.dr, 40 MG PO DAILY Prescribed by: GEORGE RITCHIE on 06/01/20 1218 Prednisone (Prednisone) 20 Mg Tab, 40 MG PO DAILY Prescribed by: ADONAY SAUL on 01/16/21 0926 Review of Systems Review of Systems Constitutional: No chills; dizziness (Increased episodes from her chronic dizziness); No fever EENTM: ear pain (Right ear pain); No ear discharge, No blurred vision, No eye pain, No vision loss (No new vision loss but 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), No epistaxis, No nose congestion Respiratory: see HPI Cardiovascular: see HPI Gastrointestinal: see HPI Genitourinary: No dysuria Musculoskeletal: no symptoms reported Skin: No change in color, No rash Psychiatric/Neurological: Anxiety Past Qpathim-Ldievt-Qlavsd Hx Patient Social History Tobacco Use?: No Use of E-Cig and/or Vaping dev: No Substance use?: No Immunizations Up To Date Tetanus Booster (TDap): Unknown Seasonal Allergies Seasonal Allergies: No Past Medical History Surgeries: Yes (Stent x2) Adenoidectomy, Appendectomy, Cardiac, Gallbladder, Hysterectomy, Tonsillectomy Respiratory: No Cardiac: Yes Angina, Hypertension 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, TIA 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 oz. kg; 30.00 BMI Method: General Appearance: No Apparent Distress, WD/WN Eyes: Left Eye Other (Subconjunctival hemorrhage to the left eye on the lateral aspect) HEENT: PERRL/EOMI, Pharynx Normal, Moist Mucous Membranes; No Photophobia; Other (Right external auditory canal is occluded with cerumen impaction. 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 Norm as Tested Skin: Normal Color, Warm/Dry Progress/Results/Core Measures Suspected Sepsis SIRS Temperature: Pulse: Respiratory Rate: Laboratory Tests 01/24/22 07:15: White Blood Count 6.6 Blood Pressure / Mean: Laboratory Tests 01/24/22 07:15: Creatinine 1.10, Platelet Count 263, Total Bilirubin 0.5 Results/Orders Lab Results Laboratory Tests Test 01/24/22 07:15 Range/Units White Blood Count 6.6 4.3-11.0 10^3/uL Red Blood Count 4.39 3.80-5.11 10^6/uL Hemoglobin 12.2 11.5-16.0 g/dL Hematocrit 37 35-52 % Mean Corpuscular Volume 84 80-99 fL Mean Corpuscular Hemoglobin 28 25-34 pg Mean Corpuscular Hemoglobin Concent 33 32-36 g/dL Red Cell Distribution Width 12.2 10.0-14.5 % Platelet Count 263 130-400 10^3/uL Mean Platelet Volume 9.7 9.0-12.2 fL Immature Granulocyte % (Auto) 0 % Neutrophils (%) (Auto) 63 42-75 % Lymphocytes (%) (Auto) 25 12-44 % Monocytes (%) (Auto) 8 0-12 % Eosinophils (%) (Auto) 3 0-10 % Basophils (%) (Auto) 1 0-10 % Neutrophils # (Auto) 4.2 1.8-7.8 10^3/uL Lymphocytes # (Auto) 1.7 1.0-4.0 10^3/uL Monocytes # (Auto) 0.5 0.0-1.0 10^3/uL Eosinophils # (Auto) 0.2 0.0-0.3 10^3/uL Basophils # (Auto) 0.1 0.0-0.1 10^3/uL Immature Granulocyte # (Auto) 0.0 0.0-0.1 10^3/uL Sodium Level 139 135-145 MMOL/L Potassium Level 3.3 L 3.6-5.0 MMOL/L Chloride Level 104 98-107 MMOL/L Carbon Dioxide Level 24 21-32 MMOL/L Anion Gap 11 5-14 MMOL/L Blood Urea Nitrogen 17 7-18 MG/DL Creatinine 1.10 0.60-1.30 MG/DL Estimat Glomerular Filtration Rate 50 BUN/Creatinine Ratio 15 Glucose Level 113 H 70-105 MG/DL Calcium Level 9.5 8.5-10.1 MG/DL Corrected Calcium 9.3 8.5-10.1 MG/DL Magnesium Level 1.9 1.6-2.4 MG/DL Total Bilirubin 0.5 0.1-1.0 MG/DL Aspartate Amino Transf (AST/SGOT) 19 5-34 U/L Alanine Aminotransferase (ALT/SGPT) 23 0-55 U/L Alkaline Phosphatase 73 40-136 U/L Myoglobin 61.0 10.0-92.0 NG/ML Troponin I < 0.30 <0.30 NG/ML Total Protein 6.7 6.4-8.2 GM/DL Albumin 4.2 3.2-4.5 GM/DL Lipase 81 H 8-78 U/L My Orders Orders - DEREK SOMERS MD Cbc With Automated Diff (01/24/22 07:09) Magnesium (01/24/22 07:09) Chest 1 View Ap/Pa Only (01/24/22 07:09) Ekg Tracing (01/24/22 07:09) Comprehensive Metabolic Panel (01/24/22 07:09) Myoglobin Serum (01/24/22 07:09) O2 (01/24/22 07:09) Monitor-Rhythm Ecg Trace Only (01/24/22 07:09) Ed Iv/Invasive Line Start (01/24/22 07:09) Lipase (01/24/22 07:09) Troponin I Fs (01/24/22 07:09) Ondansetron Injection (Zofran Injectio (01/24/22 07:52) Ct Head Wo (01/24/22 07:52) Ceftriaxone 1 Gm Pre-Mix (Rocephin 1 Gm (01/24/22 09:41) Azithromycin Tablet (Zithromax Tablet) (01/24/22 09:41) Vital Signs/I&O 01/24/22 06:55 Temp 36.7 Pulse 75 Resp 17 B/P (MAP) 170/60 (96) Pulse Ox 95 O2 Delivery Room Air Capillary Refill : Progress Note #1: Progress Note Obtain basic labs as well as electrocardiogram and chest x-ray. The electrocardiogram appears stable from prior tracings in the system. With her increased dizziness this may be due to the cerumen impaction but will add on a CT of her head to ensure that there is no other acute finding that could be contributing to her increased dizziness. Differential diagnosis includes pneumonia, electrolyte imbalance, sinusitis, cerumen impaction, stroke Progress Note #2: Progress Note CBC and chemistry did not show any acute significant abnormality to account for her symptoms. Her potassium was just below normal at 3.3. Her chest x-ray shows fullness in the right perihilar area this is new from previous chest x- ray. Radiologist recommended follow-up study in 7 to 10 days to ensure that this is resolving. If it is not resolving then they recommended getting a CT of her chest. CT head shows no acute process but she has cerumen showing up in right EAC. Treat with antibiotics for her cough and CXR findings. Counseled on cerumen impaction treatment. ECG Initial ECG Impression Date: Jan 24, 2022 Initial ECG Impression Time: 07:03 Initial ECG Rate: 71 Initial ECG Rhythm: Normal Sinus Initial ECG Comparisson: Unchanged Comment Sinus rhythm with a heart rate of 71 bpm. VT interval 182 ms. QT interval 407 ms with a QTc interval 429 ms. There is LVH present. No acute ST elevation. Overall appears similar to prior tracings in the system. Diagnostic Imaging Diagonstic Imaging: Xray Plain Films/CT/US/NM/MRI: chest Comments [facility] [employer] [facility] [place], [place] NAME: MAYIIRLANDA [facility] REC#: [id number] PT STATUS: REG ER : 1935 PHYSICIAN: DEREK SOMERS MD ADMIT DATE: 01/24/22/ER FS Draft Date of Exam:01/24/22 CHEST 1 VIEW AP/PA ONLY INDICATION: Chest pain, cough COMPARISON: 05/30/2020 TECHNIQUE: Single radiograph of the chest dated 01/24/2022. FINDINGS: The cardiac silhouette is within normal limits in size. No significant pulmonary vascular congestion. Mild background chronic interstitial lung changes. Fullness is noted within the right infrahilar location, appearing new from the prior examination. The lungs otherwise appear clear. No significant pleural effusion. No pneumothorax. Stable appearance of the right shoulder with scattered osseous degenerative changes present. IMPRESSION: Right infrahilar fullness is present. This may relate to focal atelectasis and/or infiltrate within the location. However, radiographic follow-up in 7-10 days is recommended to reevaluate. If this persists at that time, then a CT of the chest would be recommended to ensure there is no underlying mass lesion at this location. Dictated on workstation # [id number] Dict: 01/24/22 0725 Trans: 01/24/22 0734 [id number] Interpreted by: GLORIA CLINE MD Electronically signed by: Reviewed: Reviewed by Mo Diagonstic Imaging: CT Plain Films/CT/US/NM/MRI: head Comments [facility] [place], [place] NAME: IRLANDA SEE [facility] REC#: [id number] PT STATUS: REG ER : 1935 PHYSICIAN: DEREK SOMERS MD ADMIT DATE: 01/24/22/ER FS Signed Date of Exam:01/24/22 CT HEAD WO PROCEDURE: CT head without contrast. TECHNIQUE: Multiple contiguous axial images were obtained through the brain without the use of intravenous contrast. Auto Exposure Controls were utilized during the CT exam to meet ALARA standards for radiation dose reduction. INDICATION: Dizziness, right ear pain COMPARISON: 05/26/2021 FINDINGS: Age-appropriate volume loss. No intracranial hemorrhage. No intracranial mass, mass effect, midline shift, herniation, hydrocephalus, or extra-axial fluid collection. Periventricular and subcortical white matter hypodensities are present, most consistent with mild background chronic small vessel white matter ischemic disease. No definite CT evidence of an acute ischemic infarction. The orbits are unremarkable. The paranasal sinuses are clear. The calvarium and extracalvarial soft tissues are unremarkable. Focal filling defect is identified within the right external auditory canal. Background vascular calcifications. IMPRESSION: No acute intracranial abnormality with age-appropriate volume loss and mild background chronic white matter ischemic disease present. Filling defect within the right external auditory canal, likely related to cerumen. Recommend direct visualization. Dictated by: Dictated on workstation # [id number] Dict: 01/24/22818 Trans: 01/24/22848 CVB [id number] Interpreted by: GLORIA CLINE MD Electronically signed by: GLORIA CLINE MD 01/24/2249 Reviewed: Reviewed by Me Departure Impression Primary Impression: Pneumonia of right lower lobe due to infectious organism Additional Impressions: Subconjunctival hemorrhage of left eye Impacted cerumen of right ear Disposition: HOME, SELF-CARE Condition: Stable Departure-Patient Inst. Decision time for Depature: 09:45 Referrals: CHELI BARNES MD, RICKY D DO (PCP/Family) Primary Care Physician Patient Instructions: Subconjunctival Hemorrhage, Pneumonia, Adult ED, Ear Wax Impaction ED Add. Discharge Instructions: Stay well-hydrated and drink plenty of fluids. Use plain Robitussin or plain Mucinex to help loosen up congestion and improve your cough. Take the full course of antibiotics to treat for pneumonia. Have a repeat chest x-ray done in approximately 10 to 14 days. This can be done with your regular provider. The radiologist had recommended the x-ray be done to ensure that the area of infection had cleared. If it was not resolved right base of the lung then radiology had recommended getting a CT scan of the lungs. In terms of the earwax that is impacted or blocking your canal on the right side, use earwax drops to soften and dissolve the wax. This should then rinse out with taking a shower. If you continue to have problems with this you could also check with your regular doctor or see Dr. Barnes with ENT about having the wax removed. All discharge instructions reviewed with patient and/or family. Voiced understanding. Scripts Azithromycin (Azithromycin) 500 Mg Tablet 500 MG PO DAILY for pneumonia for 4 Days, #4 TAB 0 Refills Prov: DEREK SOMERS MD 01/24/22 DEREK SOMERS MD Jan 24, 2022 07:28
--- NOTE | 2022-01-24 07:34 | Diagnostic Imaging Report ---
INDICATION: Chest pain, cough COMPARISON: 05/30/2020 TECHNIQUE: Single radiograph of the chest dated 01/24/2022. FINDINGS: The cardiac silhouette is within normal limits in size. No significant pulmonary vascular congestion. Mild background chronic interstitial lung changes. Fullness is noted within the right infrahilar location, appearing new from the prior examination. The lungs otherwise appear clear. No significant pleural effusion. No pneumothorax. Stable appearance of the right shoulder with scattered osseous degenerative changes present. IMPRESSION: Right infrahilar fullness is present. This may relate to focal atelectasis and/or infiltrate within the location. However, radiographic follow-up in 7-10 days is recommended to reevaluate. If this persists at that time, then a CT of the chest would be recommended to ensure there is no underlying mass lesion at this location. Dictated by: Dictated on workstation # [id number]
[2022-01-24 07:39] LABS: ALBUMIN 4.2 GM/DL (3.2-4.5); BILIRUBIN,TOTAL 0.5 MG/DL (0.1-1.0); CALCIUM 9.5 MG/DL (8.5-10.1); CREATININE SERUM 1.1 MG/DL (0.60-1.30); MAGNESIUM 1.9 MG/DL (1.6-2.4); POTASSIUM 3.3 MMOL/L (3.6-5.0); TOTAL PROTEIN 6.7 GM/DL (6.4-8.2)
[2022-01-24] MEDS ORDERED: ONDANSETRON 4 MG/2 ML (SDV) Z0FRAN IVP STA (07:52)
--- NOTE | 2022-01-24 08:32 | Diagnostic Imaging Report ---
PROCEDURE: CT head without contrast. TECHNIQUE: Multiple contiguous axial images were obtained through the brain without the use of intravenous contrast. Auto Exposure Controls were utilized during the CT exam to meet ALARA standards for radiation dose reduction. INDICATION: Dizziness, right ear pain COMPARISON: 05/26/2021 FINDINGS: Age-appropriate volume loss. No intracranial hemorrhage. No intracranial mass, mass effect, midline shift, herniation, hydrocephalus, or extra-axial fluid collection. Periventricular and subcortical white matter hypodensities are present, most consistent with mild background chronic small vessel white matter ischemic disease. No definite CT evidence of an acute ischemic infarction. The orbits are unremarkable. The paranasal sinuses are clear. The calvarium and extracalvarial soft tissues are unremarkable. Focal filling defect is identified within the right external auditory canal. Background vascular calcifications. IMPRESSION: No acute intracranial abnormality with age-appropriate volume loss and mild background chronic white matter ischemic disease present. Filling defect within the right external auditory canal, likely related to cerumen. Recommend direct visualization. Dictated by: Dictated on workstation # [id number]
[2022-01-24] MEDS ORDERED: cefTRIAXone 1 GM PRE-MIX 50 ML IV STA (09:41)
[2022-01-24] MEDS ORDERED: AZITHROMYCIN 250 MG TAB (ZITHROMAX) PO STA (09:41)
[2022-01-24] MEDS ORDERED: AZIT500T9 PO (09:50)
[2022-01-24 10:24] VITALS: BP 133/56
== END 2022-01-24 10:39 | disposition home or self-care (01) ==
LOC: EDUNIT# 06:45 → ER FS 06:48
DX: J18.9 Pneumonia, unspecified organism (principal); H61.21 Impacted cerumen, right ear; H11.32 Conjunctival hemorrhage, left eye
CPT/HCPCS: 36415; 70450; 71045; 80053; 83690; 83735; 83874; 84484; 85025; 93005; 93041

== ENCOUNTER 2022-02-03 12:00 | Day surgery (SDC) | payer MEDICARE ==
[~2022-02-03] VITALS: Ht 157.5 cm; Wt 76.0 kg
[2022-02-03] VITALS (19 sets, daily range): BP systolic 86–163; BP diastolic 58–106
[2022-02-03 09:12] LABS: HEMATOCRIT 39 % (35-52); HEMOGLOBIN 12.9 g/dL (11.5-16.0); MEAN CORPUSCULAR HEMOGLOBIN 28 pg (25-34); MEAN CORPUSCULAR HGB CONC 33 g/dL (32-36); MEAN CORPUSCULAR VOLUME 86 fL (80-99); MEAN PLATELET VOLUME 10.2 fL (9.0-12.2); PLATELET COUNT 279 10^3/uL (130-400); WHITE BLOOD COUNT 7.9 10^3/uL (4.3-11.0)
[2022-02-03 09:39] LABS: ALBUMIN 4.4 GM/DL (3.2-4.5); POTASSIUM 3.7 MMOL/L (3.6-5.0)
[2022-02-03 09:40] LABS: CALCIUM 9.7 MG/DL (8.5-10.1); INR 0.9 (0.8-1.4); PROTHROMBIN TIME PATIENT 12.3 SEC (12.2-14.7)
[2022-02-03 09:42] LABS: TOTAL PROTEIN 7.1 GM/DL (6.4-8.2)
[2022-02-03 09:44] LABS: BILIRUBIN,TOTAL 0.5 MG/DL (0.1-1.0)
[2022-02-03 09:45] LABS: CREATININE SERUM 1.29 MG/DL (0.60-1.30)
--- NOTE | 2022-02-03 10:54 | Cardiac Procedure Note-CS/ASA ---
Pre-Procedure Note Pre-Op Procedure Note H&P Reviewed The H&P was reviewed, patient examined and no changes noted. Date H&P Reviewed: February 03, 2022 Time H&P Reviewed: 09:45 Conscious Sedation Pre-Proced Time 09:45 ASA Score 3 For ASA 3 and 4: Consider anesthesia and medical clearance. Also, for patients with a history of failed moderate sedation consider anesthesia. Airway Lungs Heart ASA score ASA 1: a normal healthy patient ASA 2: a patient with a mild systemic disease (mid diabetes, controlled hypertension, obesity ASA 3: a patient with a severe systemic disease that limits activity (angina, COPD, prior Myocardial infarction) ASA 4: a patient with an incapacitating disease that is a constant threat to life (CHF, renal failure) ASA 5: a moribund patient not expected to survive 24 hrs. (ruptured aneurysm) ASA 6: a declared brain- patient whose organs are being harvested. For emergent operations, add the letter E after the classification Mallampati Classification Grade 2 Sedation Plan Analgesia, Amnesia, Plan communicated to team members, Discussed options with patient/fam, Discussed risks with patient/fam The patient is an appropriate candidate to undergo the planned procedure, sedation, and anesthesia. The patient immediately re-assessed prior to indication. JEB MCKEON MD FACP FAC CCDS February 03, 2022 10:54
--- NOTE | 2022-02-03 11:26 | CARDIAC CATHETERIZATION ---
DATE OF SERVICE: 02/03/2022 CARDIAC CATHETERIZATION AND CORONARY INTERVENTION REPORT INDICATION FOR PROCEDURE: The patient is an 86-year-old lady, who is known to have coronary artery disease. She has been noncompliant with medications. She was seen in the office for complaints of increasing chest discomfort with exertion. Symptoms are suggestive of recurrent angina. Cardiac catheterization was carried out today after having obtained an informed consent. DESCRIPTION OF PROCEDURE: She was brought to the cardiac catheterization laboratory in a fasting state. Right groin was prepared and draped in the usual sterile fashion. Lidocaine 1% was used for local anesthesia. Modified Seldinger technique was used to advance a 5-Croatian sheath in the right femoral artery, 5-Croatian JL4 catheter for left coronary angiography, 5-Croatian JR4 catheter was used for right coronary angiography, 5-Croatian pigtail catheter was used for left heart catheterization, and left ventricular angiography was not performed. This was to conserve contrast, given the patient's chronic renal insufficiency. Subsequently, we carried out percutaneous intervention to the mid right coronary artery, which was exhibiting 90% stenosis. PERCUTANEOUS INTERVENTION TO THE RIGHT CORONARY ARTERY: We exchanged the sheath over a wire for a 6-Croatian sheath. We gave 5000 units of intravenous heparin and a double bolus of Integrilin and engaged the right coronary artery using a 6-Croatian JR4 guide catheter and advanced a BMW wire across the lesion. We carried out balloon angioplasty with a 2.5 x 20 mm balloon, which reduced the stenosis from 90% to approximately 70%. We then stented the lesion with a Skypoint 2.75 x 18 mm stent that was deployed at 14 atmospheres. Subsequent angiography revealed 0% residual stenosis at the previous site of 90% stenosis in the right coronary. The posterior descending branch of the right coronary artery has approximately 70% mid vessel stenosis that was not intervened on. The terminal posterolateral system of the right coronary artery has severe stenosis that involved multiple branches. There is stenosis up to 90%, it is not significantly changed compared to a previous study of 2019. LEFT HEART CATHETERIZATION: The left heart catheterization showed an end-diastolic pressure of 18 mmHg. There is no significant pressure gradient on pullback across the aortic valve. CORONARY ANGIOGRAPHY: Left main coronary artery did not exhibit significant disease. Left anterior descending and left circumflex arteries have diffuse mild to moderate plaque. The first diagonal branch of the left anterior descending artery has approximately 60% proximal stenosis. The vessel is of a small caliber and the stenosis is not significantly changed from the study of 2020. The right coronary artery is dominant. There is a patent stent in its proximal portion that is known to be Alpine Xience 3 x 18 mm stent. The mid portion of the right coronary artery had 90% stenosis, which was successfully stented with Skypoint 2.75 x 18 mm stent. The posterior descending branch of the right coronary artery has approximately 70% mid vessel stenosis. The distal posterolateral system of the right coronary artery has severe disease that involves multiple branches and does not appear amenable to intervention. CONCLUSIONS: 1. Coronary artery disease as detailed above. The left anterior descending and left circumflex artery have diffuse mild to moderate plaque in the first diagonal branch, has approximately 60% proximal stenosis and is of a small caliber. The right coronary artery is large and dominant and there is a patent stent in its proximal portion (Alpine Xience 3.0 x 18 placed in 2020) and the mid right coronary artery had 90% stenosis, which was successfully stented with Skypoint 2.75 x 18 mm stent. The posterior descending has a 70% mid vessel stenosis in the distal posterolateral system of the right coronary artery, has severe disease that does not appear amenable to intervention. 2. Left ventricular end-diastolic pressure 18 mmHg. DISCUSSION AND RECOMMENDATIONS: She has been advised to be compliant with her medications. In particular, she has been advised to continue with the dual antiplatelet therapy. She is intolerant to statins because of a history of liver enzyme elevation when she was on it. Job ID: [id number] DocumentID: [id number] Dictated Date: 02/03/2022 11:10:26 High School Tutor Date: 02/03/2022 11:25:40 Dictated By: JEB MCKEON MD, MA, FACP, FACC,
[~2022-02-03 12:00] MED LIST changes: +ASPIRIN 81 MG CHEW (CHILDREN'S ASA) ONE; +AZIT500T9 PO; +CLOPIDOGREL 300 MG (PLAVIX) TABLET PO ONE; +EPTIFIBATIDE BOLUS 10 ML IV ONE; +EZET10TA49 PO; +HEParin (CATH LAB) 2,000 ML IV ONE; +HEParin 1000 UNIT/ML (10ML VIAL) FOR BOLUS ONE; +LIDOCAINE 1% INJ 20 ML VIAL ONE; +MIDAZOLAM 5 MG/5 ML (VERSED) VIAL ONE; +NITRO DRIP 25000 MCG/D5W 250 ML IV ONE; +NS IV 1000 ML 1,000 ML IV SCH; +NS IV 1000 ML 1,000 ML ONE; +PATIENT MAY USE OWN MEDS, ALL PO SCH; +fentaNYL INJ 100 MCG/2 ML AMP ONE
[2022-02-03] MEDS ORDERED: ATROPINE INJECTION 1 MG/10 ML SYR (ABBOTT) ONE (13:02)
[2022-02-03] MEDS ORDERED: fentaNYL INJ 100 MCG/2 ML AMP IVP PRN (13:15)
--- NOTE | 2022-02-03 14:39 | Tele-ICU Progress Note ---
Progress Note Video assessment done , Hemodynamically stable Available charting reviewed 86 y/o female s/p CCL ptca and stent to RCA NO TELE-ICU CONSULT REQUESTED CONTINUE TO MONITOR PER USUAL TELE-ICU PROTOCOL No need for Tele-ICU interventions Plans as delineated by bedside physicians / consultants Focused Exam Height, Weight, BMI Height: '" Weight: lbs. oz. kg; 30.63 BMI Method: REGINALDO SIM MD February 03, 2022 14:39
[2022-02-03] MEDS: NS IV 1000 ML 1,000 ML IV SCH ×2 (14:45→18:35)
[2022-02-03] MEDS ORDERED: ATROPINE INJECTION 1 MG/10 ML SYR (ABBOTT) IV NR (15:15)
[2022-02-04] VITALS (7 sets, daily range): BP systolic 104–157; BP diastolic 56–89
[2022-02-04 04:48] LABS: BASOPHILS % (AUTO) 1 % (0-10); EOSINOPHILS # (AUTO) 0.2 10^3/uL (0.0-0.3); EOSINOPHILS % (AUTO) 2 % (0-10); HEMATOCRIT 36 % (35-52); HEMOGLOBIN 11.4 g/dL (11.5-16.0); LYMPHOCYTES # (AUTO) 1.6 10^3/uL (1.0-4.0); LYMPHOCYTES % (AUTO) 20 % (12-44); MEAN CORPUSCULAR HEMOGLOBIN 28 pg (25-34); MEAN CORPUSCULAR HGB CONC 32 g/dL (32-36); MEAN CORPUSCULAR VOLUME 86 fL (80-99); MONOCYTES # (AUTO) 0.6 10^3/uL (0.0-1.0); MONOCYTES % (AUTO) 7 % (0-12); NEUTROPHILS # (AUTO) 5.6 10^3/uL (1.8-7.8); NEUTROPHILS % (AUTO) 71 % (42-75); PLATELET COUNT 247 10^3/uL (130-400); WHITE BLOOD COUNT 7.9 10^3/uL (4.3-11.0)
[2022-02-04 05:05] LABS: POTASSIUM 3.7 MMOL/L (3.6-5.0)
[2022-02-04 05:07] LABS: CALCIUM 8.8 MG/DL (8.5-10.1)
[2022-02-04 05:11] LABS: CREATININE SERUM 0.83 MG/DL (0.60-1.30)
[2022-02-04] MEDS: NS IV 1000 ML 1,000 ML IV SCH (07:17)
--- NOTE | 2022-02-04 07:48 | Progress Note - Cardiology ---
Cardiology SOAP Progress Note Subjective: Sitting up in recliner at the bedside States she feels good No c/o CP, SOB or palpitations Wants to go home Objective: I&O/Vital Signs 02/03/22 02/03/22 02/03/22 02/04/22 21:00 22:00 23:00 00:00 Pulse 73 68 70 75 Resp 19 13 14 15 B/P (MAP) 139/69 (92) 136/66 (89) 150/76 (100) 144/81 (102) Pulse Ox 95 91 95 95 O2 Delivery Nasal Cannula Nasal Cannula Nasal Cannula Nasal Cannula O2 Flow Rate 2.00 2.00 2.00 2.00 02/04/22 02/04/22 02/04/22 02/04/22 00:29 00:31 00:34 01:00 Temp 36.6 Pulse 69 67 Resp 15 B/P (MAP) 127/71 (89) Pulse Ox 95 95 O2 Delivery Nasal Cannula Nasal Cannula O2 Flow Rate 2.00 2.00 02/04/22 02/04/22 02/04/22 02/04/22 02:00 03:00 04:00 04:00 Temp 36.8 Pulse 71 67 74 Resp 14 13 B/P (MAP) 120/81 (94) 120/56 (77) 156/89 (111) Pulse Ox 94 95 96 96 O2 Delivery Nasal Cannula Nasal Cannula Nasal Cannula Nasal Cannula O2 Flow Rate 2.00 2.00 2.00 2.00 02/04/22 02/04/22 02/04/22 07:00 08:00 08:09 Temp 36.5 Pulse 67 Pulse Ox 96 O2 Delivery Nasal Cannula O2 Flow Rate 2.00 02/03/22 23:59 Intake Total 500 ml Output Total 550 ml Balance -50 ml Side: right Groin site without hematoma: Yes Condition: DP/PT pulses palpable, extremity w/d/p Bruising: mild bruising Constitutional: AAO x 3, well-developed, well-nourished Respiratory: No accessory muscle use, No respiratory distress; chest expansion is symmetric, chest is bilaterally symmetric, lungs clear to auscultation Cardiovascular: No JVD; S1 and S2, other (irregular rhythm (sinus arrhymia)) Gastrointestional: No tender; soft, round, audible bowel sounds Extremities: no lower extremity edema bilateral Neurologic/Psychiatric: grossly intact (moves all extremities) Skin: No rash on exposed areas, No ulcerations on exposed areas Results/Procedures: Labs Laboratory Tests 02/03/22 09:04: White Blood Count 7.9, Red Blood Count 4.58, Hemoglobin 12.9, Hematocrit 39, Mean Corpuscular Volume 86, Mean Corpuscular Hemoglobin 28, Mean Corpuscular Hemoglobin Concent 33, Red Cell Distribution Width 12.4, Platelet Count 279, Mean Platelet Volume 10.2, Prothrombin Time 12.3, INR Comment 0.9, Activated Partial Thromboplast Time 30, Sodium Level 143, Potassium Level 3.7, Chloride Level 105, Carbon Dioxide Level 28, Anion Gap 10, Blood Urea Nitrogen 19H, Creatinine 1.29, Estimat Glomerular Filtration Rate 41, BUN/Creatinine Ratio 15, Glucose Level 97, Calcium Level 9.7, Corrected Calcium 9.4, Total Bilirubin 0.5, Aspartate Amino Transf (AST/SGOT) 19, Alanine Aminotransferase (ALT/SGPT) 27, Alkaline Phosphatase 67, Total Protein 7.1, Albumin 4.4, Triglycerides Level 117, Cholesterol Level 217H, LDL Cholesterol Direct 142H, VLDL Cholesterol 23, HDL Cholesterol 57 02/04/22 04:30: White Blood Count 7.9, Red Blood Count 4.13, Hemoglobin 11.4L, Hematocrit 36, Mean Corpuscular Volume 86, Mean Corpuscular Hemoglobin 28, Mean Corpuscular Hemoglobin Concent 32, Red Cell Distribution Width 12.4, Platelet Count 247, Mean Platelet Volume 10.0, Sodium Level 141, Potassium Level 3.7, Chloride Level 106, Carbon Dioxide Level 24, Anion Gap 11, Blood Urea Nitrogen 14, Creatinine 0.83, Estimat Glomerular Filtration Rate 69, BUN/Creatinine Ratio 17, Glucose Level 105, Calcium Level 8.8, Immature Granulocyte % (Auto) 0, Neutrophils (%) (Auto) 71, Lymphocytes (%) (Auto) 20, Monocytes (%) (Auto) 7, Eosinophils (%) (Auto) 2, Basophils (%) (Auto) 1, Neutrophils # (Auto) 5.6, Lymphocytes # (Auto) 1.6, Monocytes # (Auto) 0.6, Eosinophils # (Auto) 0.2, Basophils # (Auto) 0.0, Immature Granulocyte # (Auto) 0.0 Microbiology 02/03/22 MRSA Screen - Final, Complete MRSA not isolated A/P: Assessment: CAD, multivessel: - MPI of February 13, 2020 is indicative of anterolateral ischemia. LVEF 75%. Normal regional wall motion. Subsequent interventions described above - Cardiac cath on 02/27/20: PTCA of prox LAD with reduction of stenosis from 80% to less than 30%, small D1 had severe prox dz and not amenable to intervention; stenting of prox LCXOM with Alp Xience 3x12. - Cardiac cath on 03/05/20: stenting of prox RCA with Alp Xience 3x18, distal RCA had significant dz where the vessel is of a small caliber - Cardiac cath of 02-03-22 Coronary artery disease as detailed above. The left anterior descending and left circumflex artery have diffuse mild to moderate plaque in the first diagonal branch, has approximately 60% proximal stenosis and is of a small caliber. The right coronary artery is large and dominant and there is a patent stent in its proximal portion (Alpine Xience 3.0 x 18 placed in 2019) and the mid right coronary artery had 90% stenosis, which was successfully stented with Skypoint 2.75 x 18 mm stent. The posterior descending has a 70% mid vessel stenosis in the distal posterolateral system of the right coronary artery, has severe disease that does not appear amenable to intervention. Left ventricular end-diastolic pressure 18 mmHg. H/O Noncompliance with cardiac meds (not taking antiplatelet therapy despite known h/o coronary stenting) Chronic tiredness - of undetermined etiology Mod to Severe Mitral Regurg - Echo of February 13, 2020 showed LVEF 60-65%. Grade 1 diastolic dysfunction. LA is mildly to mod dilated. Mod to severe MR. Mod Aortic regurg. RVSP 25 mmHg Hypertension - controlled GI bleed in 2019 - According to pt, endoscopy by Dr Ellis showed diverticulitis and hemorrhoids; ASA was stopped and Plavix was continued; she has not had any further problems on this regimen CKD-3 - followed by PCP H/o hyperlipidemia - Intolerant to statin (due to liver enz elev when on it) Multiple sclerosis - diagnosed in the . Has had symptoms of dizziness and loss of vision in the R eye H/o CVA - in or around 2002 (R eye vision loss, according to the patient) Fam h/o early CAD - (brother in his 60s) Abnormal ECG - ECG on 12/16/20: NSR with sinus arrhythmia and PVCs Carotid dz - mild bilat carotid dz per u/s of 12-16-20 Plan: S/P cardiac cath with successful coronary intervention OK to discharge home today Discussed importance of compliance with medications, she verbalizes understanding Continue current medications including ASA and Plavix Advise f/u in 2 weeks or sooner if needed DG STERLING February 04, 2022 07:48
[2022-02-04] MEDS ORDERED: ASPI81TA64 PO (07:49)
--- NOTE | 2022-02-04 08:59 | Discharge Inst-Cardiology ---
Discharge Inst-Cardiac Discharge Medications New Medications: Aspirin (Children's Aspirin) 81 Mg Tab.chew 81 MG PO DAILY, #90 TAB 3 Refills Continued Medications: Amlodipine Besylate (Amlodipine Besylate) 10 Mg Tablet 10 MG PO DAILY, TAB Clopidogrel Bisulfate (Clopidogrel) 75 Mg Tablet 75 MG PO DAILY, TAB Ezetimibe (Ezetimibe) 10 Mg Tablet 10 MG PO DAILY, TAB Metoprolol Succinate (Metoprolol Succinate) 50 Mg Tab.er.24h 50 MG PO DAILY, TAB New, Converted or Re-Newed RX: Transmitted to Pharmacy Patient Instructions Patient Instructions: Please schedule follow up appointment to see Dr. Rand in 2 weeks DG STERLING February 04, 2022 08:59
[2022-02-04] MEDS ORDERED: CLOPIDOGREL 75 MG (PLAVIX) TABLET PO SCH (09:00)
[2022-02-04] MEDS ORDERED: amLODIPine 10 MG (NORVASC) TAB PO SCH (09:00)
[2022-02-04] MEDS ORDERED: eZETimibe 10 MG (ZETIA) TABLET PO SCH (09:00)
[2022-02-04] MEDS ORDERED: ASPIRIN 81 MG CHEW (CHILDREN'S ASA) PO SCH (09:00)
[2022-02-04] MEDS ORDERED: meTOproloL SUCCINATE 50 MG (TOPROL XL) TAB PO SCH (09:00)
--- NOTE | 2022-02-04 10:39 | Progress Note - Cardiology ---
Cardiology SOAP Progress Note Subjective: No cp or palp or syncope No n/v/d No focal weakness No groin or leg discomfort Wishes to go home Objective: I&O/Vital Signs 02/03/22 02/04/22 02/04/22 02/04/22 23:00 00:00 00:29 00:31 Temp 36.6 Pulse 70 75 69 Resp 14 15 B/P (MAP) 150/76 (100) 144/81 (102) Pulse Ox 95 95 O2 Delivery Nasal Cannula Nasal Cannula O2 Flow Rate 2.00 2.00 02/04/22 02/04/22 02/04/22 02/04/22 00:34 01:00 02:00 03:00 Pulse 67 71 67 Resp 15 14 13 B/P (MAP) 127/71 (89) 120/81 (94) 120/56 (77) Pulse Ox 95 95 94 95 O2 Delivery Nasal Cannula Nasal Cannula Nasal Cannula Nasal Cannula O2 Flow Rate 2.00 2.00 2.00 2.00 02/04/22 02/04/22 02/04/22 02/04/22 04:00 04:00 07:00 07:00 Temp 36.8 Pulse 74 67 64 Resp 12 B/P (MAP) 156/89 (111) Pulse Ox 96 96 95 O2 Delivery Nasal Cannula Nasal Cannula Nasal Cannula O2 Flow Rate 2.00 2.00 2.00 02/04/22 02/04/22 02/04/22 02/04/22 08:00 08:00 08:09 09:00 Temp 36.5 Pulse 83 68 Resp 14 11 B/P (MAP) 146/69 (94) 157/82 (107) Pulse Ox 95 96 95 O2 Delivery Nasal Cannula Nasal Cannula Nasal Cannula O2 Flow Rate 2.00 2.00 2.00 02/04/22 10:08 B/P (MAP) 02/04/22 00:00 Intake Total 500 ml Output Total 550 ml Balance -50 ml Side: right Groin site without hematoma: Yes Condition: DP/PT pulses palpable, extremity w/d/p Bruising: mild bruising Constitutional: AAO x 3, well-developed, well-nourished Respiratory: No accessory muscle use, No respiratory distress; chest expansion is symmetric, chest is bilaterally symmetric, lungs clear to auscultation Cardiovascular: No JVD; S1 and S2, other (irregular rhythm (sinus arrhymia)) Gastrointestional: No tender; soft, round, audible bowel sounds Extremities: no lower extremity edema bilateral Neurologic/Psychiatric: grossly intact (moves all extremities) Skin: No rash on exposed areas, No ulcerations on exposed areas Results/Procedures: Labs Laboratory Tests 02/04/22 04:30: White Blood Count 7.9, Red Blood Count 4.13, Hemoglobin 11.4L, Hematocrit 36, Mean Corpuscular Volume 86, Mean Corpuscular Hemoglobin 28, Mean Corpuscular Hemoglobin Concent 32, Red Cell Distribution Width 12.4, Platelet Count 247, Mean Platelet Volume 10.0, Immature Granulocyte % (Auto) 0, Neutrophils (%) (Auto) 71, Lymphocytes (%) (Auto) 20, Monocytes (%) (Auto) 7, Eosinophils (%) (Auto) 2, Basophils (%) (Auto) 1, Neutrophils # (Auto) 5.6, Lymphocytes # (Auto) 1.6, Monocytes # (Auto) 0.6, Eosinophils # (Auto) 0.2, Basophils # (Auto) 0.0, Immature Granulocyte # (Auto) 0.0, Sodium Level 141, Potassium Level 3.7, Chloride Level 106, Carbon Dioxide Level 24, Anion Gap 11, Blood Urea Nitrogen 14, Creatinine 0.83, Estimat Glomerular Filtration Rate 69, BUN/Creatinine Ratio 17, Glucose Level 105, Calcium Level 8.8 Microbiology 02/03/22 MRSA Screen - Final, Complete MRSA not isolated Laboratory Tests 02/03/22 09:04 02/04/22 04:30 A/P: Assessment: CAD, multivessel: - MPI of February 13, 2020 is indicative of anterolateral ischemia. LVEF 75%. Normal regional wall motion. Subsequent interventions described above - Cardiac cath on 02/27/20: PTCA of prox LAD with reduction of stenosis from 80% to less than 30%, small D1 had severe prox dz and not amenable to intervention; stenting of prox LCXOM with Alp Xience 3x12. - Cardiac cath on 03/05/20: stenting of prox RCA with Alp Xience 3x18, distal RCA had significant dz where the vessel is of a small caliber - Cardiac cath of 02-03-22 Coronary artery disease as detailed above. The left anterior descending and left circumflex artery have diffuse mild to moderate p laque in the first diagonal branch, has approximately 60% proximal stenosis and is of a small caliber. The right coronary artery is large and dominant and there is a patent stent in its proximal portion (Alpine Xience 3.0 x 18 placed in 2019) and the mid right coronary artery had 90% stenosis, which was successfully stented with Skypoint 2.75 x 18 mm stent. The posterior descending has a 70% mid vessel stenosis in the distal posterolateral system of the right coronary artery, has severe disease that does not appear amenable to intervention. Left ventricular end-diastolic pressure 18 mmHg. H/O Noncompliance with cardiac meds (not taking antiplatelet therapy despite known h/o coronary stenting) Chronic tiredness - of undetermined etiology Mod to Severe Mitral Regurg - Echo of February 13, 2020 showed LVEF 60-65%. Grade 1 diastolic dysfunction. LA is mildly to mod dilated. Mod to severe MR. Mod Aortic regurg. RVSP 25 mmHg Hypertension - controlled GI bleed in 2019 - According to pt, endoscopy by Dr Ellis showed diverticulitis and hemorrhoids; ASA was stopped and Plavix was continued; she has not had any further problems on this regimen CKD-3 - followed by PCP H/o hyperlipidemia - Intolerant to statin (due to liver enz elev when on it) Multiple sclerosis - diagnosed in the . Has had symptoms of dizziness and loss of vision in the R eye H/o CVA - in or around 2002 (R eye vision loss, according to the patient) Fam h/o early CAD - (brother in his 60s) Abnormal ECG - ECG on 12/16/20: NSR with sinus arrhythmia and PVCs Carotid dz - mild bilat carotid dz per u/s of 12-16-20 Plan: S/P cardiac cath with successful coronary intervention. I discussed the details with her OK to discharge home today Discussed importance of compliance with medications, she verbalizes understanding Continue current medications including ASA and Plavix Advise f/u in 2 weeks or sooner if needed JEB MCKEON MD FACP FAC [facility]S February 04, 2022 10:39
== END 2022-02-04 09:30 ==
LOC: CATH 12:00 → ICU 12:00 → CATH 02-04 09:30
PROVIDERS: ATTEND Internal Medicine Cardiovascular Disease
DX: I25.10 Atherosclerotic heart disease of native coronary artery without angina pectoris (principal); R53.83 Other fatigue; I34.0 Nonrheumatic mitral (valve) insufficiency; I35.1 Nonrheumatic aortic (valve) insufficiency; I12.9 Hypertensive chronic kidney disease with stage 1 through stage 4 chronic kidney disease, or unspecified chronic kidney disease; I65.23 Occlusion and stenosis of bilateral carotid arteries; N18.30 Chronic kidney disease, stage 3 unspecified; K92.2 Gastrointestinal hemorrhage, unspecified; E78.5 Hyperlipidemia, unspecified; G35 Multiple sclerosis; R94.31 Abnormal electrocardiogram [ECG] [EKG]; E78.2 Mixed hyperlipidemia; Z91.19 Patient's noncompliance with other medical treatment and regimen; Z79.899 Other long term (current) drug therapy; Z86.73 Personal history of transient ischemic attack (TIA), and cerebral infarction without residual deficits; Z79.01 Long term (current) use of anticoagulants
CPT/HCPCS: 80048; 80053; 80061; 85025; 85027; 85610; 85730; 87081; 93005; 93458; C1725; C1769; C1874; C1887; C1894 ×2; C9600; 36415

== ENCOUNTER → 2022-02-11 | Outpatient (CLI) | payer MEDICARE ==
[~2022-02-11] MED LIST changes: +ASPI81TA64 PO; -ASPIRIN 81 MG CHEW (CHILDREN'S ASA) ONE; -CLOPIDOGREL 300 MG (PLAVIX) TABLET PO ONE; -EPTIFIBATIDE BOLUS 10 ML IV ONE; -HEParin (CATH LAB) 2,000 ML IV ONE; -HEParin 1000 UNIT/ML (10ML VIAL) FOR BOLUS ONE; -LIDOCAINE 1% INJ 20 ML VIAL ONE; -MIDAZOLAM 5 MG/5 ML (VERSED) VIAL ONE; -NITRO DRIP 25000 MCG/D5W 250 ML IV ONE; -NS IV 1000 ML 1,000 ML IV SCH; -NS IV 1000 ML 1,000 ML ONE; -PATIENT MAY USE OWN MEDS, ALL PO SCH; -fentaNYL INJ 100 MCG/2 ML AMP ONE
--- NOTE | 2022-02-11 16:01 | Diagnostic Imaging Report ---
INDICATION: Pneumonia. EXAMINATION: PA and lateral chest. Heart size and pulmonary vascularity are normal. Lungs are clear. There are no effusions or pneumothoraces. IMPRESSION: No acute abnormalities in the chest. Dictated by: Dictated on workstation # [id number]
== END ==
LOC: RAD FS 14:49
PROVIDERS: ATTEND Nurse Practitioner Family
DX: J18.9 Pneumonia, unspecified organism (principal)
CPT/HCPCS: 71046

== ENCOUNTER 2022-03-09 06:44 | Emergency (ER) | payer MEDICARE ==
[~2022-03-09] VITALS: Ht 152 cm; Wt 74.8 kg
[2022-03-09 06:50] VITALS: BP 159/97
[2022-03-09 07:11] LABS: BASOPHILS # (AUTO) 0.1 10^3/uL (0.0-0.1); BASOPHILS % (AUTO) 1 % (0-10); EOSINOPHILS # (AUTO) 0.1 10^3/uL (0.0-0.3); EOSINOPHILS % (AUTO) 2 % (0-10); HEMATOCRIT 36 % (35-52); HEMOGLOBIN 12.3 g/dL (11.5-16.0); LYMPHOCYTES % (AUTO) 26 % (12-44); MEAN CORPUSCULAR HEMOGLOBIN 28 pg (25-34); MEAN CORPUSCULAR HGB CONC 34 g/dL (32-36); MEAN CORPUSCULAR VOLUME 82 fL (80-99); MEAN PLATELET VOLUME 10.1 fL (9.0-12.2); MONOCYTES # (AUTO) 0.6 10^3/uL (0.0-1.0); MONOCYTES % (AUTO) 7 % (0-12); NEUTROPHILS % (AUTO) 65 % (42-75); PLATELET COUNT 285 10^3/uL (130-400); WHITE BLOOD COUNT 7.8 10^3/uL (4.3-11.0)
[2022-03-09 07:24] LABS: INR 0.9 (0.8-1.4); PROTHROMBIN TIME PATIENT 12.3 SEC (12.2-14.7)
--- NOTE | 2022-03-09 07:24 | Diagnostic Imaging Report ---
PROCEDURE: CT head wo r/o stroke. TECHNIQUE: Multiple contiguous axial images were obtained through the brain without the use of intravenous contrast. Auto Exposure Controls were utilized during the CT exam to meet ALARA standards for radiation dose reduction. INDICATION: Left-sided headache and dizziness. Onset approximately 1:00 a.m.. EXAMINATION: CT brain without contrast 03/09/2022. COMPARISON: 01/24/2022 FINDINGS: There are chronic ischemic changes in a periventricular and deep white matter distribution with no acute hemorrhage or infarct appreciated. There is no mass, mass effect or midline shift. There is no hydrocephalus. IMPRESSION: 1. Chronic ischemic disease with no acute intracranial process. Findings called to Dr. Harper by Dr. Tam 03/09/2022 at 7:21 a.m. Dictated by: Dictated on workstation # [id number]
--- NOTE | 2022-03-09 07:33 | ED Syncope ---
General Chief Complaint: Dizziness/Syncope Stated Complaint: DIZZY/NAUSEATED/WEAKNESS Nursing Triage Note: Pt states that she felt a pop "in my head" this AM at 0100. After that she got up to go to the bathroom and fell into the wall due to dizziness. Since then, she has had progressive dizziness and nausea. 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 History of Present Illness Date Seen by Provider: Mar 09, 2022 Time Seen by Provider: 07:10 Initial Comments 86-year-old female with PMH of CAD with 1 stent placed in January 2022, is here with complaints of dizziness which began today morning when she got out of bed. Patient states that she thinks she heard a pop in her head. Denies chest pain, palpitations, shortness of breath, abdominal pain, headache, nausea and vomiting, neck pain or neck stiffness, fever, trauma, LOC, injury, fall. Allergies and Home Medications Allergies Coded Allergies: morphine (Verified Allergy, Mild, 06/30/19) Patient Home Medication List Home Medication List Reviewed: Yes Amlodipine Besylate (Amlodipine Besylate) 10 Mg Tablet, 10 MG PO DAILY, (R eported) Entered as Reported by: WILFREDO ART on 02/03/22 09 Aspirin (Children's Aspirin) 81 Mg Tab.chew, 81 MG PO DAILY Prescribed by: DG STERLING on 02/04/22 0749 Clopidogrel Bisulfate (Clopidogrel) 75 Mg Tablet, 75 MG PO DAILY, (Reported) Entered as Reported by: GINA NELSON on 05/30/20 1503 Ezetimibe (Ezetimibe) 10 Mg Tablet, 10 MG PO DAILY, (Reported) Entered as Reported by: WILFREDO ART on 02/03/22 0911 Metoprolol Succinate (Metoprolol Succinate) 50 Mg Tab.er.24h, 50 MG PO DAILY, (Reported) Entered as Reported by: GINA NELSON on 05/30/20 1503 Review of Systems Constitutional: dizziness EENTM: no symptoms reported Respiratory: no symptoms reported Cardiovascular: no symptoms reported Gastrointestinal: no symptoms reported Genitourinary: no symptoms reported Musculoskeletal: no symptoms reported Skin: no symptoms reported Psychiatric/Neurological: See HPI, Anxiety Past Pujecyp-Zorzrl-Hfkqrv Hx Patient Social History Tobacco Use?: No Use of E-Cig and/or Vaping dev: No Substance use?: No Alcohol Use?: No Pt feels they are or have been: No Immunizations Up To Date Tetanus Booster (TDap): Unknown Influenza Vaccine Up-to-Date: Yes; Up-to-Date First/Initial COVID19 Vaccinat: November 2020 Seasonal Allergies Seasonal Allergies: No Past Medical History Surgery/Hospitalization HX: MS, right eye blindness, CAD with stent placement Surgeries: Yes (Stent x2) Adenoidectomy, Appendectomy, Cardiac, Gallbladder, Hysterectomy, Tonsillectomy Respiratory: No Cardiac: Yes Angina, Hypertension 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, 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 oz. 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 Norm as Tested Cranial Nerves: Normal Hearing, Normal Speech, PERRL Coordination/Gait: Normal Finger to Nose, Normal Gait, Negative Romberg's Sign Motor/Sensory: No Motor Deficit, No Sensory Deficit, No Pronator Drift Skin: Normal Color Lymphatic: No Adenopathy Progress/Results/Core Measures Results/Orders Lab Results Laboratory Tests Test 03/09/22 07:01 03/09/22 07:39 Range/Units White Blood Count 7.8 4.3-11.0 10^3/uL Red Blood Count 4.43 3.80-5.11 10^6/uL Hemoglobin 12.3 11.5-16.0 g/dL Hematocrit 36 35-52 % Mean Corpuscular Volume 82 80-99 fL Mean Corpuscular Hemoglobin 28 25-34 pg Mean Corpuscular Hemoglobin Concent 34 32-36 g/dL Red Cell Distribution Width 12.3 10.0-14.5 % Platelet Count 285 130-400 10^3/uL Mean Platelet Volume 10.1 9.0-12.2 fL Immature Granulocyte % (Auto) 0 % Neutrophils (%) (Auto) 65 42-75 % Lymphocytes (%) (Auto) 26 12-44 % Monocytes (%) (Auto) 7 0-12 % Eosinophils (%) (Auto) 2 0-10 % Basophils (%) (Auto) 1 0-10 % Neutrophils # (Auto) 5.0 1.8-7.8 10^3/uL Lymphocytes # (Auto) 2.0 1.0-4.0 10^3/uL Monocytes # (Auto) 0.6 0.0-1.0 10^3/uL Eosinophils # (Auto) 0.1 0.0-0.3 10^3/uL Basophils # (Auto) 0.1 0.0-0.1 10^3/uL Immature Granulocyte # (Auto) 0.0 0.0-0.1 10^3/uL Prothrombin Time 12.3 12.2-14.7 SEC INR Comment 0.9 0.8-1.4 Activated Partial Thromboplast Time 31 24-35 SEC D-Dimer 0.57 H 0.00-0.49 UG/ML Sodium Level 139 135-145 MMOL/L Potassium Level 3.8 3.6-5.0 MMOL/L Chloride Level 103 98-107 MMOL/L Carbon Dioxide Level 24 21-32 MMOL/L Anion Gap 12 5-14 MMOL/L Blood Urea Nitrogen 19 H 7-18 MG/DL Creatinine 1.26 0.60-1.30 MG/DL Estimat Glomerular Filtration Rate 42 BUN/Creatinine Ratio 15 Glucose Level 120 H 70-105 MG/DL Calcium Level 9.4 8.5-10.1 MG/DL Corrected Calcium 9.2 8.5-10.1 MG/DL Magnesium Level 1.9 1.6-2.4 MG/DL Total Bilirubin 0.5 0.1-1.0 MG/DL Aspartate Amino Transf (AST/SGOT) 23 5-34 U/L Alanine Aminotransferase (ALT/SGPT) 25 0-55 U/L Alkaline Phosphatase 70 40-136 U/L Troponin I < 0.30 <0.30 NG/ML Total Protein 7.0 6.4-8.2 GM/DL Albumin 4.3 3.2-4.5 GM/DL Urine Color YELLOW Urine Clarity CLEAR Urine pH 6.0 5-9 Urine Specific Page 1.010 L 1.016-1.022 Urine Protein NEGATIVE NEGATIVE Urine Glucose (UA) NEGATIVE NEGATIVE Urine Ketones NEGATIVE NEGATIVE Urine Nitrite NEGATIVE NEGATIVE Urine Bilirubin NEGATIVE NEGATIVE Urine Urobilinogen 0.2 < = 1.0 MG/DL Urine Leukocyte Esterase 1+ H NEGATIVE Urine RBC (Auto) 1+ H NEGATIVE Urine RBC 5-10 H /HPF Urine WBC 10-25 H /HPF Urine Squamous Epithelial Cells 2-5 /HPF Urine Renal Epithelial Cells 0-2 /HPF Urine Crystals NONE /LPF Urine Bacteria TRACE /HPF Urine Casts PRESENT /LPF Urine Hyaline Casts 10-25 H /LPF Urine Mucus NEGATIVE /LPF Urine Culture Indicated YES My Orders Orders - RADAMES HARPER MD Fibrin Degradation Products (03/09/22 07:16) Ekg Tracing (03/09/22 07:16) Ua Culture If Indicated (03/09/22 07:28) Urine Culture (03/09/22 07:39) Ct Angio Chest W (03/09/22 07:52) Ceftriaxone 1 Gm Pre-Mix (Rocephin 1 Gm (03/09/22 07:53) Iohexol Injection (Omnipaque 350 Mg/Ml 1 (03/09/22 08:00) Received Contrast (Hold Metformin- Contr (03/09/22 08:00) Ns (Ivpb) (Sodium Chloride 0.9% Ivpb Bag (03/09/22 08:00) Sodium Chloride Flush (Catheter Flush Sy (03/09/22 08:00) Meclizine Tablet (Antivert Tablet) (03/09/22 09:00) Ondansetron Injection (Zofran Injectio (03/09/22 09:00) Medications Given in ED Current Medications Medications Dose Ordered Sig/Negrito Route Start Time Stop Time Status Last Admin Dose Admin Iohexol 100 ml ONCE ONCE IV 03/09/22 08:00 03/09/22 08:01 DC 03/09/22 08:00 100 ML Sodium Chloride 10 ml NEEDED PRN IV 03/09/22 08:00 03/09/22 08:00 10 ML Sodium Chloride 100 ml ONCE ONCE IV 03/09/22 08:00 03/09/22 08:01 DC 03/09/22 08:00 80 ML Vital Signs/I&O 03/09/22 03/09/22 03/09/22 03/09/22 06:50 07:30 07:45 08:00 Temp 36.5 Pulse 38 73 68 70 78 Resp 11 18 16 16 B/P (MAP) 159/97 (117) 168/82 152/69 167/69 Pulse Ox 96 93 94 96 O2 Delivery Room Air Room Air Room Air Room Air 03/09/22 08:45 Pulse 71 Resp 15 B/P (MAP) 164/72 Pulse Ox 93 O2 Delivery Room Air Blood Pressure Mean: 117 Progress Progress Note : Progress Note 1. NEAR SYNCOPE: VERTIGO: - CT HEAD: no acute changes - Labs - Troponin normal - Follow up with ENT clinic for vertigo. Pt has appointment with Dr Barnes in March- Prescriptions for vertigo: Meclizine 25mg TID as needed for dizziness. Do not drive while taking this medication - Prescription for nausea: Zofran ODT, Q6H as needed for vomiting - Follow up with PCP in the next 3to 7 days - The patient was seen in the ED, and treated appropriately to presentation at a specific point in time. Patient is informed that there is a possibility that disease and illness can evolve and change in acuity rapidly or slowly after patient is discharged from the ER. Precautionary advice given to the patient for immediate return to ER if symptoms worsen or do not resolve, and to seek emergency care sooner rather than later. Pt also advised on the importance of PCP follow up and compliance with management and follow up plan with PCP and/or specialist, as this is part of the management plan. Pt verbally expressed understanding. 2. ACUTE CYSTITIS WITH HEMATURIA: - UA is positive for LE, bact, WBC, RBC - Prescriptions given for UTI: Cefpodoxime 100mg bid for 5 days - Adequate hydration advised 3. BIGEMINY: - EKG shows bigeminy, - Follow up with cardiology for bigeminy found on EKG 4. ELEVATED D-DIMER/ INCIDENTAL LUNG NODULE: - D-dimer is 0.57 - CTA CHEST: no PE, nodule, follow up with PCP for monitoring Initial ECG Impression Date: Mar 09, 2022 Initial ECG Impression Time: 07:27 Initial ECG Rate: 71 Initial ECG Rhythm: Normal Sinus, PVC Initial ECG Comparisson: No Previous ECG Available Comment bigeminy and some PVC's Diagnostic Imaging Diagonstic Imaging: CT Plain Films/CT/US/NM/MRI: chest, head Comments [email or web address]. [place], [place] NAME: IRLANDA SEE [facility] REC#: [id number] PT STATUS: REG ER : 1935 PHYSICIAN: RADAMES HARPER MD ADMIT DATE: 03/09/22/ER FS Draft Date of Exam:03/09/22 CT ANGIO CHEST W INDICATION: Elevated D-dimer, dizziness and unsteadiness. TECHNIQUE: Multiple contiguous axial images were obtained through the chest after uneventful bolus administration of intravenous contrast. 3D reconstructed CTA MIP acquisitions were also performed. Auto Exposure Controls were utilized during the CT exam to meet ALARA standards for radiation dose reduction. There is no prior chest CTA for comparison. The pulmonary parenchymal vessels are well opacified with no CT evidence of pulmonary emboli. Thoracic aorta shows no evidence of aneurysm or dissection. There is no pleural or pericardial fluid. There are no enlarged mediastinal or hilar nodes. There are no enlarged axillary nodes or chest wall lesions. Lung parenchymal windows demonstrated no consolidation. There is some subpleural scarring in the lung bases. There appears to be a groundglass nodule in the left lower lobe measuring about 6 mm. Visualized portions of the upper abdomen show old granulomatous changes in the spleen with no acute finding. IMPRESSION: No CT evidence of pulmonary emboli or aortic dissection or aneurysm. There is some subpleural scarring in both lungs. There is a 6 mm groundglass nodule in the left lower lobe, recommend followup study in 6 months. Dictated on workstation # [id number] Dict: 03/09/22 0817 Trans: 03/09/22 0826 CVB [id number] Interpreted by: JOSHUA MARTINEZ MD Electronically signed by: [facility] [place], [place] NAME: IRLANDA SEE [facility] REC#: [id number] PT STATUS: REG ER : 1935 PHYSICIAN: MITALI ORTIZ DO ADMIT DATE: 03/09/22/ER FS Draft Date of Exam:03/09/22 CT HEAD WO-R/O STROKE PROCEDURE: CT head wo r/o stroke. TECHNIQUE: Multiple contiguous axial images were obtained through the brain without the use of intravenous contrast. Auto Exposure Controls were utilized during the CT exam to meet ALARA standards for radiation dose reduction. INDICATION: Left-sided headache and dizziness. Onset approximately 1:00 a.m.. EXAMINATION: CT brain without contrast 03/09/2022. COMPARISON: 01/24/2022 FINDINGS: There are chronic ischemic changes in a periventricular and deep white matter distribution with no acute hemorrhage or infarct appreciated. There is no mass, mass effect or midline shift. There is no hydrocephalus. IMPRESSION: 1. Chronic ischemic disease with no acute intracranial process. Findings called to Dr. Harper by Dr. Tam 03/09/2022 at 7:21 a.m. Dictated on workstation # [id number] Dict: 03/09/22 0718 Trans: 03/09/22 0724 [facility] [id number] Interpreted by: JORDEN TAM MD Electronically signed by: Departure Impression Primary Impression: Acute cystitis Qualified Codes: N30.01 - Acute cystitis with hematuria Additional Impressions: Elevated d-dimer Vertigo Bigeminy Disposition: HOME, SELF-CARE Condition: Stable Departure-Patient Inst. Referrals: JAS PINEDA DO (PCP/Family) Primary Care Physician Patient Instructions: Vertigo (a Type of Dizziness) (DC), Urinary Tract Infections in Adults Add. Discharge Instructions: - Follow up with cardiology for bigeminy found on EKG - Follow up with ENT clinic for vertigo. Pt has appointment with Dr Barnes in March - Prescriptions given for UTI: Cefpodoxime 100mg bid for 5 days - Prescriptions for vertigo: Meclizine 25mg TID as needed for dizziness. Do not drive while taking this medication - Prescription for nausea: Zofran ODT, Q6H as needed for vomiting - Follow up with PCP in the next 3to 7 days - Adequate hydration advised - Return to ER if symptoms worsen All discharge instructions reviewed with patient and/or family. Voiced understanding. Scripts Meclizine HCl (Meclizine HCl) 25 Mg Tablet 25 MG PO TID for Dizziness for 7 Days, #20 TAB Prov: RADAMES HARPER MD 03/09/22 Ondansetron (Ondansetron Odt) 4 Mg Tab.rapdis 4 MG PO Q6H PRN for NAUSEA/VOMITING for 4 Days, #20 TAB Prov: RADAMES HARPER MD 03/09/22 Cefpodoxime Proxetil (Cefpodoxime Proxetil) 100 Mg Tablet 100 MG PO BID for 5 Days, #10 TAB Prov: RADAMES HARPER MD 03/09/22 RADAMES HARPER MD Mar 09, 2022 07:33
[2022-03-09 07:37] LABS: BUN/CREATININE RATIO 15; CARBON DIOXIDE 24 MMOL/L (21-32); CHLORIDE 103 MMOL/L (98-107); CREATININE SERUM 1.26 MG/DL (0.60-1.30); GFR ESTIMATED 42; GLUCOSE 120 MG/DL (70-105); POTASSIUM 3.8 MMOL/L (3.6-5.0); SODIUM 139 MMOL/L (135-145)
[2022-03-09 07:38] LABS: ALANINE AMINOTRANSFERASE 25 U/L (0-55); ALBUMIN 4.3 GM/DL (3.2-4.5); ALKALINE PHOSPHATASE 70 U/L (40-136); BILIRUBIN,TOTAL 0.5 MG/DL (0.1-1.0); CALCIUM 9.4 MG/DL (8.5-10.1); MAGNESIUM 1.9 MG/DL (1.6-2.4)
[2022-03-09 07:43] LABS: BILIRUBIN,URINE NEGATIVE (NEGATIVE); CLARITY,URINE CLEAR; COLOR,URINE YELLOW; GLUCOSE, URINE (UA) NEGATIVE (NEGATIVE); KETONES,URINE NEGATIVE (NEGATIVE); LEUKOCYTE ESTERASE ,URINE 1+ (NEGATIVE); NITRITE,URINE NEGATIVE (NEGATIVE); PROTEIN,URINE NEGATIVE (NEGATIVE)
[2022-03-09 07:49] LABS: BACTERIA,URINE TRACE /HPF; RENAL EPITHELIAL CELLS,URINE 0-2 /HPF
[2022-03-09] MEDS ORDERED: cefTRIAXone 1 GM PRE-MIX 50 ML IV STA (07:53)
[2022-03-09] MEDS ORDERED: HOLD METFORMIN - RECEIVED CONTRAST 20 ML VIAL IV SCH (08:00)
[2022-03-09] MEDS ORDERED: NS 100 ML (IVPB) BAG IV ONE (08:00)
[2022-03-09] MEDS ORDERED: IOHEXOL 350 MG/ML 100 ML (OMNIPAQUE 350) VIAL IV ONE (08:00)
[2022-03-09] MEDS ORDERED: CATHETER FLUSH 10 ML SYR IV PRN (08:00)
--- NOTE | 2022-03-09 08:26 | Diagnostic Imaging Report ---
INDICATION: Elevated D-dimer, dizziness and unsteadiness. TECHNIQUE: Multiple contiguous axial images were obtained through the chest after uneventful bolus administration of intravenous contrast. 3D reconstructed CTA MIP acquisitions were also performed. Auto Exposure Controls were utilized during the CT exam to meet ALARA standards for radiation dose reduction. There is no prior chest CTA for comparison. The pulmonary parenchymal vessels are well opacified with no CT evidence of pulmonary emboli. Thoracic aorta shows no evidence of aneurysm or dissection. There is no pleural or pericardial fluid. There are no enlarged mediastinal or hilar nodes. There are no enlarged axillary nodes or chest wall lesions. Lung parenchymal windows demonstrated no consolidation. There is some subpleural scarring in the lung bases. There appears to be a groundglass nodule in the left lower lobe measuring about 6 mm. Visualized portions of the upper abdomen show old granulomatous changes in the spleen with no acute finding. IMPRESSION: No CT evidence of pulmonary emboli or aortic dissection or aneurysm. There is some subpleural scarring in both lungs. There is a 6 mm groundglass nodule in the left lower lobe, recommend followup study in 6 months. Dictated by: Dictated on workstation # [id number]
[2022-03-09] MEDS ORDERED: ONDANSETRON 4 MG/2 ML (SDV) Z0FRAN IVP ONE (09:00)
[2022-03-09] MEDS ORDERED: MECLIZINE 25 MG (ANTIVERT) TAB PO ONE (09:00)
[2022-03-09] MEDS ORDERED: ONDA4TAB11 PO (09:10)
[2022-03-09] MEDS ORDERED: MECL-149 PO (09:10)
[2022-03-09] MEDS ORDERED: CEFP100T2 PO (09:10)
== END 2022-03-09 09:22 | disposition home or self-care (01) ==
LOC: EDUNIT# 06:44 → ER FS 06:47
DX: R42 Dizziness and giddiness (principal); R00.8 Other abnormalities of heart beat; N30.01 Acute cystitis with hematuria; R79.1 Abnormal coagulation profile; Z90.49 Acquired absence of other specified parts of digestive tract; Z90.710 Acquired absence of both cervix and uterus
CPT/HCPCS: 36415; 70450; 71275; 80053; 81000; 83735; 84484; 85025; 85379; 85610; 85730; 87088; 93005; Q9967

== ENCOUNTER → 2022-03-19 | Outpatient (CLI) | payer MEDICARE ==
[~2022-03-19] MED LIST changes: +CEFP100T2 PO; +ONDA4TAB11 PO
== END ==
LOC: CARDFS 13:34
PROVIDERS: ATTEND Internal Medicine Cardiovascular Disease
DX: I34.0 Nonrheumatic mitral (valve) insufficiency (principal)
CPT/HCPCS: 93306

== ENCOUNTER → 2022-05-07 | Outpatient (CLI) | payer MEDICARE ==
[2022-05-07 13:18] LABS: BASOPHILS # (AUTO) 0.1 10^3/uL (0.0-0.1); BASOPHILS % (AUTO) 1 % (0-10); EOSINOPHILS # (AUTO) 0.2 10^3/uL (0.0-0.3); EOSINOPHILS % (AUTO) 2 % (0-10); HEMATOCRIT 38 % (35-52); HEMOGLOBIN 12.4 g/dL (11.5-16.0); LYMPHOCYTES % (AUTO) 25 % (12-44); MEAN CORPUSCULAR HEMOGLOBIN 28 pg (25-34); MEAN CORPUSCULAR HGB CONC 33 g/dL (32-36); MEAN CORPUSCULAR VOLUME 84 fL (80-99); MEAN PLATELET VOLUME 9.9 fL (9.0-12.2); MONOCYTES # (AUTO) 0.6 10^3/uL (0.0-1.0); MONOCYTES % (AUTO) 8 % (0-12); NEUTROPHILS # (AUTO) 5.2 10^3/uL (1.8-7.8); NEUTROPHILS % (AUTO) 64 % (42-75); PLATELET COUNT 266 10^3/uL (130-400); WHITE BLOOD COUNT 8.1 10^3/uL (4.3-11.0)
== END ==
LOC: LAB FS 13:00
PROVIDERS: ATTEND Internal Medicine Cardiovascular Disease
DX: R58 Hemorrhage, not elsewhere classified (principal)
CPT/HCPCS: 36415; 85025

== ENCOUNTER → 2022-08-14 | Outpatient (CLI) | payer MEDICARE ==
[~2022-08-14] MED LIST changes: -LABE100T6 PO; +LABE100T9 PO
--- NOTE | 2022-08-14 11:38 | Diagnostic Imaging Report ---
PROCEDURE: CT chest without contrast. TECHNIQUE: Multiple contiguous axial images were obtained through the chest without the use of intravenous contrast. Auto Exposure Controls were utilized during the CT exam to meet ALARA standards for radiation dose reduction. INDICATION: Solitary pulmonary nodule. COMPARISON: 03/09/2022 FINDINGS: 1.2 x 0.7 cm soft tissue density is identified immediately inferior to the isthmus of the thyroid gland. This is unchanged since the prior examination. Several calcified mediastinal and hilar lymph nodes are present. No new or increasing adenopathy. Scattered vascular calcifications without aneurysmal dilatation of thoracic aorta. This includes moderate vascular calcifications within the coronary arteries. The heart is within normal limits in size. No significant pericardial effusion. No pleural effusion. The trachea is patent. No pneumothorax. Mild background emphysematous changes. 0.6 cm sub-solid subpleural left lower lobe pulmonary nodule is again identified and unchanged, series 5, image 121. Additional sub-zero 0.4 cm bilateral upper lobe pulmonary nodules are also stable. Mild background chronic interstitial lung changes are again identified. No new suspicious pulmonary nodule or mass. Calcified hepatic and splenic granuloma. Cholecystectomy. The visualized upper abdomen is otherwise unremarkable. Scattered osseous degenerative changes without acute osseous abnormality. IMPRESSION: Stable 6 mm and smaller bilateral pulmonary nodules. Recommend a follow-up CT of the chest in one year to ensure stability. Given appearance, these may simply relate to noncalcified granuloma. Stable soft tissue nodule immediately inferior to the level of the thyroid isthmus. This may relate to a small unchanged exophytic thyroid nodule. Nonenlarged mediastinal lymph node be additional consideration. Mild background fibroemphysematous changes. Evidence of chronic granulomatous disease. Dictated by: Dictated on workstation # [id number]
== END ==
LOC: RAD FS 09:59
PROVIDERS: ATTEND Emergency Medicine
DX: R91.8 Other nonspecific abnormal finding of lung field (principal); J43.9 Emphysema, unspecified; J84.10 Pulmonary fibrosis, unspecified; N18.2 Chronic kidney disease, stage 2 (mild)
CPT/HCPCS: 71250

== ENCOUNTER 2022-09-13 14:16 | Emergency (ER) | payer MEDICARE ==
[~2022-09-13] VITALS: Ht 157.5 cm; Wt 72.6 kg
--- NOTE | 2022-09-13 14:18 | ED General ---
General Stated Complaint: FLU SYMPTOMS History of Present Illness Date Seen by Provider: Sep 13, 2022 Time Seen by Provider: 14:18 Initial Comments 86-year-old female presents because she just does not feel well. She has not felt well for about 5 days. She has generalized malaise, lack appetite, minor cough, body aches. She had some nausea vomiting diarrhea this can resolved. No reports of fever, chills, dysuria, shortness of breath, chest pain. Patient has a home oxygen monitor that she checked that read really low with her oxygen being in in the 60s to low 70s and her heart rate being 98-99 on her home finger monitor and she was concerned so she wanted come to the ER to get checked out. Allergies and Home Medications Allergies Coded Allergies: morphine (Verified Allergy, Mild, 06/30/19) Patient Home Medication List Home Medication List Reviewed: Yes Amlodipine Besylate (Amlodipine Besylate) 10 Mg Tablet, 10 MG PO DAILY, (Reported) Entered as Reported by: WILFREDO ART on 02/03/22 09 Aspirin (Children's Aspirin) 81 Mg Tab.chew, 81 MG PO DAILY Prescribed by: DG STERLING on 02/04/22 0749 Cefpodoxime Proxetil (Cefpodoxime Proxetil) 100 Mg Tablet, 100 MG PO BID Prescribed by: RADAMES BEGUM MD on 03/09/22 09 Clopidogrel Bisulfate (Clopidogrel) 75 Mg Tablet, 75 MG PO DAILY, (Reported) Entered as Reported by: GINA NELSON on 05/30/20 1503 Ezetimibe (Ezetimibe) 10 Mg Tablet, 10 MG PO DAILY, (Reported) Entered as Reported by: WILFREDO ART on 02/03/22 09 Meclizine HCl (Meclizine HCl) 25 Mg Tablet, 25 MG PO TID Prescribed by: RADAMES BEGUM MD on 03/09/22 09 Metoprolol Succinate (Metoprolol Succinate) 50 Mg Tab.er.24h, 50 MG PO DAILY, (Reported) Entered as Reported by: GINA NELSON on 05/30/20 1503 Ondansetron (Ondansetron Odt) 4 Mg Tab.rapdis, 4 MG PO Q6H PRN for NAUSEA/VOMITING Prescribed by: RADAMES BEGUM MD on 03/09/22 0910 Review of Systems Review of Systems Constitutional: chills, dizziness; No fever; malaise, weakness Respiratory: cough; No dyspnea on exertion, No orthopnea, No short of breath Cardiovascular: No chest pain, No palpitations Gastrointestinal: No abdominal pain; diarrhea, loss of appetite, nausea Musculoskeletal: no symptoms reported Skin: no symptoms reported Psychiatric/Neurological: No Symptoms Reported Physical Exam Vital Signs Vital Signs - First Documented Capillary Refill : Height, Weight, BMI Height: '" Weight: lbs. oz. kg; BMI Method: General Appearance: No Apparent Distress, WD/WN HEENT: TMs Normal, Pharynx Normal, Moist Mucous Membranes Neck: Non Tender, Supple Respiratory: Lungs Clear, Normal Breath Sounds Cardiovascular: Regular Rate, Rhythm, No Edema Gastrointestinal: Non Tender, Soft Extremity: Normal Capillary Refill, Normal Range of Motion Neurologic/Psychiatric: Alert, Oriented x3, No Motor/Sensory Deficits, Normal Mood/Affect Skin: Normal Color, Warm/Dry Progress/Results/Core Measures Suspected Sepsis SIRS Temperature: Pulse: Respiratory Rate: Laboratory Tests 09/13/22 14:20: White Blood Count 4.2L Blood Pressure / Mean: Laboratory Tests 09/13/22 14:20: Creatinine 1.07, Platelet Count 182, Total Bilirubin 0.9 Results/Orders Lab Results Laboratory Tests Test 09/13/22 14:20 Range/Units White Blood Count 4.2 L 4.3-11.0 10^3/uL Red Blood Count 4.74 3.80-5.11 10^6/uL Hemoglobin 13.0 11.5-16.0 g/dL Hematocrit 38 35-52 % Mean Corpuscular Volume 80 80-99 fL Mean Corpuscular Hemoglobin 27 25-34 pg Mean Corpuscular Hemoglobin Concent 34 32-36 g/dL Red Cell Distribution Width 11.9 10.0-14.5 % Platelet Count 182 130-400 10^3/uL Mean Platelet Volume 10.6 9.0-12.2 fL Immature Granulocyte % (Auto) 0 % Neutrophils (%) (Auto) 59 42-75 % Lymphocytes (%) (Auto) 32 12-44 % Monocytes (%) (Auto) 8 0-12 % Eosinophils (%) (Auto) 0 0-10 % Basophils (%) (Auto) 0 0-10 % Neutrophils # (Auto) 2.5 1.8-7.8 10^3/uL Lymphocytes # (Auto) 1.4 1.0-4.0 10^3/uL Monocytes # (Auto) 0.4 0.0-1.0 10^3/uL Eosinophils # (Auto) 0.0 0.0-0.3 10^3/uL Basophils # (Auto) 0.0 0.0-0.1 10^3/uL Immature Granulocyte # (Auto) 0.0 0.0-0.1 10^3/uL Sodium Level 136 135-145 MMOL/L Potassium Level 3.7 3.6-5.0 MMOL/L Chloride Level 97 L 98-107 MMOL/L Carbon Dioxide Level 26 21-32 MMOL/L Anion Gap 13 5-14 MMOL/L Blood Urea Nitrogen 21 H 7-18 MG/DL Creatinine 1.07 0.60-1.30 MG/DL Estimat Glomerular Filtration Rate 51 BUN/Creatinine Ratio 20 Glucose Level 128 H 70-105 MG/DL Calcium Level 9.4 8.5-10.1 MG/DL Corrected Calcium 9.2 8.5-10.1 MG/DL Total Bilirubin 0.9 0.1-1.0 MG/DL Aspartate Amino Transf (AST/SGOT) 68 H 5-34 U/L Alanine Aminotransferase (ALT/SGPT) 66 H 0-55 U/L Alkaline Phosphatase 67 40-136 U/L C-Reactive Protein < 0.30 <0.50 MG/DL Total Protein 7.1 6.4-8.2 GM/DL Albumin 4.2 3.2-4.5 GM/DL Influenza Type A (RT-PCR) Not Detected Not Detecte Influenza Type B (RT-PCR) Not Detected Not Detecte SARS-CoV-2 RNA (RT-PCR) Detected H Not Detecte My Orders Orders - ORTIZ,MITALI L DO Cbc With Automated Diff (09/13/22 14:21) Comprehensive Metabolic Panel (09/13/22 14:21) Ua Culture If Indicated (09/13/22 14:21) Influenza A And B By Pcr (09/13/22 14:21) Crp Fs (09/13/22 14:21) Covid 19 Inhouse Test (09/13/22 14:21) Ns Iv 1000 Ml (Sodium Chloride 0.9%) (12/18/22 14:21) Ed Iv/Invasive Line Start (09/13/22 14:26) Vital Signs/I&O 09/13/22 09/13/22 14:16 14:16 Temp 36.5 Pulse 64 Resp 15 B/P (MAP) 154/76 (102) O2 Delivery Room Air Room Air Capillary Refill : Progress Note : Progress Note Patient is positive for COVID. Patient's O2 saturations were in the upper 90s with her heart rates in the 60s to 70s. Believe that she likely reverse the numbers on her home O2 monitor. Patient's physical exam is negative for any acute or significant findings. Discussed supportive care with patient she is to return to the ER as needed. She is stable and discharged Departure Impression Primary Impression: COVID-19 Disposition: 01 HOME, SELF-CARE Condition: Stable Departure-Patient Inst. Patient Instructions: COVID-19 (DC) Add. Discharge Instructions: Tylenol or ibuprofen as needed for fever, chills. He may use [id number] cough medicine or honey as needed for cough. Return to the ER with any concerns or follow-up with your primary care provider as needed MITALI ORTIZ DO Sep 13, 2022 14:18
[2022-09-13] MEDS ORDERED: NS IV 1000 ML 1,000 ML IV STA (14:21)
[2022-09-13 14:34] LABS: BASOPHILS % (AUTO) 0 % (0-10); EOSINOPHILS % (AUTO) 0 % (0-10); HEMATOCRIT 38 % (35-52); LYMPHOCYTES # (AUTO) 1.4 10^3/uL (1.0-4.0); LYMPHOCYTES % (AUTO) 32 % (12-44); MEAN CORPUSCULAR HEMOGLOBIN 27 pg (25-34); MEAN CORPUSCULAR HGB CONC 34 g/dL (32-36); MEAN CORPUSCULAR VOLUME 80 fL (80-99); MEAN PLATELET VOLUME 10.6 fL (9.0-12.2); MONOCYTES # (AUTO) 0.4 10^3/uL (0.0-1.0); MONOCYTES % (AUTO) 8 % (0-12); NEUTROPHILS # (AUTO) 2.5 10^3/uL (1.8-7.8); NEUTROPHILS % (AUTO) 59 % (42-75); PLATELET COUNT 182 10^3/uL (130-400); WHITE BLOOD COUNT 4.2 10^3/uL (4.3-11.0)
[2022-09-13 14:46] LABS: ALANINE AMINOTRANSFERASE 66 U/L (0-55); ALBUMIN 4.2 GM/DL (3.2-4.5); ALKALINE PHOSPHATASE 67 U/L (40-136); BILIRUBIN,TOTAL 0.9 MG/DL (0.1-1.0); BUN/CREATININE RATIO 20; CALCIUM 9.4 MG/DL (8.5-10.1); CARBON DIOXIDE 26 MMOL/L (21-32); CHLORIDE 97 MMOL/L (98-107); CREATININE SERUM 1.07 MG/DL (0.60-1.30); GFR ESTIMATED 51; GLUCOSE 128 MG/DL (70-105); POTASSIUM 3.7 MMOL/L (3.6-5.0); SODIUM 136 MMOL/L (135-145); TOTAL PROTEIN 7.1 GM/DL (6.4-8.2)
[2022-09-13 15:18] VITALS: BP 141/76
== END 2022-09-13 15:18 | disposition home or self-care (01) ==
LOC: EDUNIT# 14:16 → ER FS 14:17
DX: U07.1 COVID-19 (principal); R05.9 Cough, unspecified; Z28.311 Partially vaccinated for COVID-19
CPT/HCPCS: 36415; 80053; 85025; 86141; 87636